=== PATIENT | female | born 1955 | race Caucasian/White ===

== ENCOUNTER 2020-04-08 12:40 | Outpatient (REF) | payer OTHER, SELFPAY ==
--- NOTE | 2020-04-08 10:00 | PAPFT_PTH ---
PATIENT: Esthela Padron LOC: [facility] #:[id number] AGE/SX: 65/F ROOM: RE04/08/[address]: Sawyer Walton : 1955 BED: DIS: 04/08/2020 SPEC #: [id number] RECD: 04/11/20 12:54 STATUS: CARMEN REQ #: [id number] FARIDA: 04/08/20 10:[address]: Sawyer Walton DEPT: [facility] Cytology RECD BY: Zaira Sanchez Tissues: 1 - CX/ENDOCX FOR PAP SMEARS Procedures: PAP THIN PREP/[facility] Screening HPV DNA PROBE Comments: [id number]
[2020-04-08 16:53] LABS: HCT 44.9 % (36.0-46.0); HGB 15.5 g/dL (12.0-15.5); Mean Corp. HGB Concentration 34.5 g/dL (32.0-36.0); Mean Corpuscular Hemoglobin 31.6 pg (27.0-33.0); Mean Corpuscular Volume 91.4 fL (80-95); Mean Platelet Volume 10.7 fL (8.0-11.0); Platelet Count 357 x1000/uL (130-400); RBC 4.91 m/cumm (4.00-5.20); RBC Distribution Width 12.4 % (11.7-14.6); White Blood Cell Count 6.67 k/cumm (4.4-10.8)
[2020-04-08 17:04] LABS: ALT 30 U/L (14-59); AST 19 U/L (15-37); Albumin 4.2 g/dL (3.4-5.0); Alkaline Phosphatase 97 U/L (46-116); Anion Gap 9.2 mmol/L (3-11); BUN 18 mg/dL (7-18); Bilirubin, Total 1.3 mg/dL (0.2-1.0); CO2 28.8 mmol/L (21.0-32.0); CREATININE 0.69 mg/dL (0.55-1.02); Calcium 9.3 mg/dL (8.5-10.1); Calculated LDL 168 mg/dL (<100); Chloride 102 mmol/L (98-107); Cholesterol 248 mg/dL (<200); Glucose 138 mg/dL (74-106); HDL Cholesterol 62 mg/dL (40-60); Sodium 140 mmol/L (136-145); Triglyceride 90 mg/dL (<150)
[2020-04-08 17:29] LABS: PROTEIN 17.9 mg/dL
[2020-04-08 17:31] LABS: COMMENT (LAB VIEW ONLY) 138.84 mg/dL; Microalb ug/mg Crea 16.6 ug/mg Cr
[2020-04-08 17:32] LABS: COMMENT (LAB VIEW ONLY) 141.73 mg/dL; Prot/Crea Ur Ratio 0.12
== END 2020-04-08 13:00 ==
LOC: NCHCN 12:40
PROVIDERS: PCP Nurse Practitioner Family; Visit Provider Nurse Practitioner Family
DX: I10 Essential (primary) hypertension (principal); E78.00 Pure hypercholesterolemia, unspecified; Z12.4 Encounter for screening for malignant neoplasm of cervix; Z11.51 Encounter for screening for human papillomavirus (HPV); Z00.00 Encounter for general adult medical examination without abnormal findings
CPT/HCPCS: 80053; 80061; 85027; 88142; 82043; 82565; 82570; 84156; 87624

== ENCOUNTER 2021-09-09 09:56 | Outpatient (REF) | payer OTHER, SELFPAY ==
[2021-09-11 09:49] LABS: COVID-19 RT-PCR UVMMC Result Negative (Negative)
== END 2021-09-09 09:57 | disposition home or self-care (01) ==
LOC: NCHCN 09:56
PROVIDERS: PCP Nurse Practitioner Family; Visit Provider Family Medicine
DX: Z20.822 Contact with and (suspected) exposure to COVID-19 (principal); J06.9 Acute upper respiratory infection, unspecified
CPT/HCPCS: U0003

== ENCOUNTER 2021-09-12 14:59 | Outpatient (REF) | payer OTHER, SELFPAY ==
[2021-09-14 11:58] LABS: COVID-19 RT-PCR UVMMC Result Negative (Negative)
== END 2021-09-12 15:00 | disposition home or self-care (01) ==
LOC: LBN 14:59
PROVIDERS: PCP Nurse Practitioner Family; Visit Provider Nurse Practitioner Family
DX: Z20.822 Contact with and (suspected) exposure to COVID-19 (principal); J06.9 Acute upper respiratory infection, unspecified
CPT/HCPCS: U0003

== ENCOUNTER 2022-06-21 16:24 | Outpatient (REF) | payer OTHER, SELFPAY ==
[2022-06-21 19:33] LABS: HCT 42.4 % (36.0-46.0); HGB 14.7 g/dL (11.2-15.7); MCH 30.9 pg (27.0-33.0); MCHC 34.7 % (32.0-36.0); MCV 89 fL (80-95); MPV 10.8 fL (8.0-11.0); Platelet Count 379 10^3/uL (130-400); RBC 4.75 10^6/uL (3.93-5.22); RDW 12.3 % (11.7-14.6); RDW-SD 40.1 fL; WBC 8.35 10^3/uL (4.4-10.8)
[2022-06-21 19:41] LABS: ALT 31 U/L (14-59); AST 25 U/L (15-37); Albumin 4.1 g/dL (3.4-5.0); Alkaline Phosphatase 92 U/L (46-116); BUN 11 mg/dL (7-18); Bilirubin, Total 0.9 mg/dL (0.2-1.0); CREATININE 0.5 mg/dL (0.55-1.02); Calcium 9.6 mg/dL (8.5-10.1); Calculated LDL 168 mg/dL (<100); Chloride 99 mmol/L (98-107); Cholesterol 254 mg/dL (<200); Glucose 137 mg/dL (74-106); HDL Cholesterol 58 mg/dL (40-60); Potassium 3.3 mmol/L (3.5-5.1); Sodium 140 mmol/L (136-145); Total Protein 8.3 g/dL (6.4-8.2); Triglyceride 140 mg/dL (<150)
[2022-06-22 18:35] LABS: Albumin, Ur < 0.6 mg/dL (See Note); Creatinine, Ur 9.8 mg/dL (See Note)
[2022-06-23 09:22] LABS: HIV-1/2 Ag & Ab Screen Negative (Negative)
[2022-06-25 11:40] LABS: Hepatitis C Ab w Rflx HCV PCR Negative (Negative)
== END 2022-06-21 16:25 | disposition home or self-care (01) ==
LOC: NCHCN 16:24
PROVIDERS: PCP Nurse Practitioner Family; Visit Provider Nurse Practitioner Family
DX: E78.00 Pure hypercholesterolemia, unspecified (principal); Z51.81 Encounter for therapeutic drug level monitoring; I10 Essential (primary) hypertension; Z11.4 Encounter for screening for human immunodeficiency virus [HIV]; Z11.59 Encounter for screening for other viral diseases
CPT/HCPCS: 80053; 80061; 85027; 86803; 87389; 82043; 82570

== ENCOUNTER → 2022-08-31 00:44 | Outpatient (CLI) | payer OTHER, SELFPAY ==
--- NOTE | 2022-08-31 | DI.DEXA_ITS ---
Exam(s) XR DEXA BONE DENSITY W/WO MAGY EXAM: XR DEXA BONE DENSITY W/WO MAGY CLINICAL HISTORY: SCREENING FOR OSTEOPOROSIS, Z13.820 TECHNIQUE: Routine DEXA evaluation of the lumbar spine, hip, or forearm. COMPARISON: Prior DEXA scan of 2013 FINDINGS: Performed on a Mobeon unit. Lateral image: No compression fracture evident. Lumbar Spine total T-score: 0.6. Prior 1999 reading was 0.4. Hip total T-score:-1.9. Prior 2013 reading was -1.7. Independent reading at the level of the femoral neck yields at T-score of -2.5. Forearm total T-score: -1.9. Prior 2013 reading was -1.3 IMPRESSION: Bone mineral density measures in the osteopenia bordering on osteoporosis range. Fracture risk is mod erate-high. Note: Any spine fracture indicates 5x risk for subsequent spine fracture and 2x risk for subsequent h ip fracture. World Health Organization criteria for BMD interpretation classify patients: Normal...... T- Score at or above -1.0 Osteopenic... T- Score between -1.0 and -2.5 Osteoporosis... T-Score at or below -2.5
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
--- OUTSIDE RECORDS SUMMARY | 2022-08-31 00:49 | XMS_ITS | Encounter Summary ---
:1955 Author Organization [facility] [place] [address] Care Team Providers Name Role Phone Delmis Dueñas MD Primary Care Provider Reason for Referral Physical Therapy (Routine) - Closed Specialty Diagnoses / Procedures Referred By Contact Refer red To Contact Physical Therapy Diagnoses S/P hip replacement Rogelio Maldonado PA [facility] Ernie R [place] [address] Referral ID Status Reason Start Date Expiration Date Visits V isits Requested Authorized [id number] Closed Evaluate and 08/23/2015 02/19/2016 12 12 Treat Reason for Visit Reason Comments [facility] FREDO Ant DOS 08/09/14 Encounter Details Date Type Department Care Team Description 08/23/2015 Office Visit Orthopaedics at [facility] Rogelio Maldonado S/P hip replacement (Primary Dx); [facility] TRE Willis S/P right anterior total hip arthroplast y 08/09/14 ([address] [place] [address] ORTHOPAEDIC SURGERY [phone] [place], [place] [address] (Wo rk) Social History Tobacco Use Types Packs/Day Years [...] Assigned at Date Recorded Not on file documented as of this encounter Last Filed Vital Signs Vital Sign Reading Time Taken Comments Blood Pressure 152/83 08/23/2015 11:20 AM EDT Pulse 68 08/23/2015 11:20 AM EDT Temperature - - Respiratory Rate - - Oxygen Saturation - - Inhaled Oxygen Concentration - - Weight 74.2 kg (163 lb 9.6 08/23/2015 11:20 AM fully cl othed oz) EDT Height 152.4 cm (5') 08/23/2015 11:20 AM verbal EDT Body Mass Index 31.95 08/23/2015 11:20 AM EDT documented in this encounter Progress Notes Rogelio Maldonado PA - 08/24/2015 10:00 AM EDT Case Date: 08/09/2014 Procedure Performed: right Total Hip Arthroplasty right hip intraoperative radiologic examination (CPT code 17601) Surgeon: Neri Mo MD Implants Used: Femoral Stem: DePuy Corail, Size 10 KA Femoral Head: Biolox Delta ceramic, Size 32+5 Acetabulum: DePuy Roland Sector II Gription, Size 48 Adjuvant screw fixation x 1 x 6.5mm (45mm) Liner: Altrx polyethylene, Size 48x32 +4 neutral HPI: 60 y.o. year-old female retruns 1 year from her hip replacement. She continues to do well. There is some pain to the groin with active hip flexion. This has been persistent since the operation. She only feels it with active flexion beyond 90 degrees. ROM and stability are not limiting. There has been little change in the sensation; improvement or worsening. She is pleased with the improved comfort and function since the operation. Her health has been stable. Physical Exam: Ambulatory without assist or antalgia. Leg lengths are equal. Calves soft and nontender. There is some groin pain with active hip flexion; none with passive flexion. IR and ER well tolerated. X-RAYS: Noncemented implants; no sign of loosening or subsidence. No fracture or subsidence. No evidence of complication. 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 I think her dysplasia and shallow acetabulum has resulted in a prominent component which is impinging. We reviewed options. FOr now we'll try a course of PT. Injections and revision could be pursued but we'll wait for now. F/u 1 yr Signed: TRE PURDY 08/24/2015 documented in this encounter Plan of Treatment Scheduled Referrals Name Type Priority Associated Diagnoses Order S chedule Referral to Outpatient Referral Routine S/P hip replacement O rdered: Physical Therapy 08/23/2015 documented as of this encounter Visit Diagnoses Diagnosis S/P hip replacement - Primary Hip joint replacement by other means S/P right anterior total hip arthroplast y 08/09/14 ([place]) Hip joint replacement by other means documented in this encounter Care Teams Sofa Back Upholsterer Relationship Specialty Start Date End Date Delmis Dueñas MD PCP - General 09/19/10 08/24/18 [address] [place] [address] documented as of this encounter
--- OUTSIDE RECORDS SUMMARY | 2022-08-31 00:49 | XMS_ITS | Encounter Summary ---
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 in this encounter Results SCAN DOC: IMPLANTABLE DEVICES (08/11/2014 1:15 PM EDT) Narrative 08/11/2014 1:15 PM EDT Procedure Note Provider, Scanning - 08/11/2014 1:15 PM EDT Scanning Provider MEDIA MGR SCAN EXT ORDR/RSLT (ABNORMAL) Differential, Automated (08/10/2014 4:27 AM EDT) [facility] gist Method Time Signature Neutrophils % 82.5 % CERNER MILLENNIUM Neutr Abs (ANC) 10.23 (H) 1.50 - CERNER 6.30 MILLENNIUM x10(3)/mc L Lymphocytes % 7.7 % CERNER MILLENNIUM Lymphocytes Abs 1.0 1.0 - 3.6 CERNER x10(3)/mc MILLENNIUM L Monocytes % 9.4 % CERNER MILLENNIUM Monocyte Abs 1.2 (H) 0.2 - 1.0 CERNER x10(3)/mc MILLENNIUM L Eosinophils % 0.1 % CERNER MILLENNIUM Eosinophils Abs 0.0 0.0 - 0.5 CERNER x10(3)/mc MILLENNIUM L Basophils % 0.1 % CERNER MILLENNIUM Basophils Abs 0.0 0.0 - 0.2 CERNER x10(3)/mc MILLENNIUM L Immature Gran % 0.20 % CERNER MILLENNIUM Comment: Immature granulocytes(IG's)percentage an d absolute count will include metamyelocytes, myelocytes, and promyelo cytes. Blood smears from CBCs yielding IG's will be scanned manually for concor dance. If this scan disagrees with the automated IG or if promyelocytes are not ed, a manual differential will be performed. Evelia Gran Abs 0.03 0.00 - 0.05 x10(3)/mcL CER NER MILLENNIUM Specimen Anatomical Collection Method Collection Time Receive d Time (Source) Location / / Volume Laterality Blood specimen 08/10/2014 4:27 AM 014 4:50 (specimen) EDT AM EDT Resulting Agency Comment Spec In Lab Neri Le MD HEMATOLOGY ORDERABLES Performing Organization Address City/[facility]/ZIP Code Phon e Number [address] CERNER MILLENNIUM (ABNORMAL) Hemogram (08/10/2014 4:27 AM EDT) P athologist Signature WBC 12.4 (H) 4.0 - 10.0 CERNER x10(3)/mcL MILLENNIUM RBC 3.19 (L) 3.93 - CERNER 5.22 MILLENNIUM x10(6)/mcL Hemoglobin 9.8 (L) 11.2 - CERNER 15.7 gm/dL MILLENNIUM Hematocrit 29.0 (L) 34.0 - CERNER 45.0 % MILLENNIUM MCV 90.9 79.0 - CERNER 94.0 fL MILLENNIUM MCH 30.7 26.6 - CERNER 32.2 pg MILLENNIUM MCHC 33.8 32.0 - CERNER 36.5 gm/dL MILLENNIUM Platelets 218 145 - 370 CERNER x10(3)/mcL MILLENNIUM RDWSD 40.2 35.0 - CERNER 46.0 fL MILLENNIUM RDWCV 12.0 10.9 - CERNER 14.4 % MILLENNIUM MPV 9.9 9.0 - 12.0 CERNER fL MILLENNIUM Specimen Anatomical Collection Method Collection Time Receive d Time (Source) Location / / Volume Laterality Blood specimen 08/10/2014 4:27 AM 014 4:50 (specimen) EDT AM EDT Resulting Agency Comment Spec In Lab eNri Le MD HEMATOLOGY ORDERABLES Performing Organization Address City/[facility]/ZIP Code Phon e Number [address] CERNER MILLENNIUM (ABNORMAL) Basic Metabolic Panel (non-fasting) (08/10/2014 4:27 AM EDT) P athologist Signature Glucose Lvl 136 60 - 199 CERNER mg/dL MILLENNIUM Comment: Diabetes: >=200 mg/dL plus symp toms BUN 10 8 - 18 mg/dL CERNER MILLENNIUM Creatinine 0.49 (L) 0.70 - 1.20 mg/dL CERNER MILL ENNIUM Comment: Please note that the pediatric reference intervals supplied above were not validated at [facility]. Results from pediatri c patients should be interpreted in conjunction to the patient's age, height and muscle mass. Sodium 139 135 - 145 mmol/L CERNER ROBERT NIUM Potassium 4.6 3.5 - 5.0 mmol/L CERNER ROBERT NIUM Comment: Please note: ??Patients with WBC >100,00 0 may have falsely elevated Potassium levels. ??For accurate Potassium quantif ication in these patients send serum separator tube (gold top) for subsequent determinations. ??Contact the Clinical Chemistry Laboratory if there are any qu estions. Chloride 104 98 - 107 mmol/L CERNER MILLENN IUM CO2 26 22 - 31 mmol/L CERNER MILLENNI UM Anion Gap 9 5 - 15 mmol/L CERNER MILLENNIU M Calcium 8.6 8.5 - 10.5 mg/dL CERNER ROBERT NIUM Estimated GFR >60 >=60 CERNER MILLENNIU M Comment: This estimated GFR (eGFR) value was calc ulated using the MDRD equation which has been validated on patients between t he ages of 18 and 70. The MDRD should not be used to assess kidney function in patients < 18 years of age or in patients with extremes of body mass, or in patients with acute kidney failure. This value should be multiplied by 1.2 f or patients. For further information please copy and past e the following links into your internet browser. http://Definition 6/DHnkdep http://Definition 6/DHMCnkf Specimen Anatomical Collection Method Collection Time Receive d Time (Source) Location / / Volume Laterality Blood specimen 08/10/2014 4:27 AM 014 4:50 (specimen) EDT AM EDT Resulting Agency Comment Spec In Lab Neri Le MD CHEMISTRY ORDERABLES Performing Organization Address City/State/[place] [address] CERNER MILLENNIUM XR pelvis 1 or 2 views (08/09/2014 3:28 PM EDT) Anatomical Region Laterality Modality Pelvis N/A Radiographic Imaging Specimen (Source) Anatomical Collection Method Collection Time Re ceived Time Location / / Volume Laterality 08/09/2014 3:28 PM EDT Narrative 08/09/2014 3:58 PM EDT Examination PELVIS 1 OR 2 VIEWS/XPORT Clinical History hip fracture Comparison 06/23/2014. Technique Portable AP view of the pelvis including both hips on 08/09/2014 at 1515 hours. Findings There has been right hip arthroplasty. ? ?Components appear well-seated, with no immediate post arthroplasty complication such as periprosthetic fracture. ?? Clustered small hazy nodular opacities p rojecting over and lateral to the proximal right femur, question antibioti c beads versus object external to the patient. Unchanged post arthroplasty laurie earance on the left. ?? Impression No immediate post arthroplasty complicat ions identified. Procedure Note Jazlyn Woodard MD - 08/09/2014Formatt ing of this note might be different from the original. Examination PELVIS 1 OR 2 VIEWS/XPORT Clinical History hip fracture Comparison 06/23/2014. Technique Portable AP view of the pelvis including both hips on 08/09/2014 at 1515 hours. Findings There has been right hip arthroplasty. C omponents appear well-seated, with no immediate post arthroplasty complication such as periprosthetic fracture. Clustered small hazy nodular opacities p rojecting over and lateral to the proximal right femur, question antibioti c beads versus object external to the patient. Unchanged post arthroplasty laurie earance on the left. Impression No immediate post arthroplasty complicat ions identified. Neri Le MD IMG DX ORDERABLES Surgical Pathology Report (08/09/2014 12:53 PM EDT) [facility] Method Time Signature Surgical [facility] Pathology ? [facility] Report ? Provider: ?? NERI LE ?? Pt. Name: ?? ARSENW ESTHELA MCCORMACK ? Acc #: ?[id number] ?Pt. MRN: ?[id number] ? Col Date: ?? 08/09/20 14 ?/Sex: ?1955,(59 years),Female ? Rec Date: ?? 08/09/2014 ?LOC: ?[id number] ? SURGICAL PATHOLOGY ? ---Pathologic Diagnosis--- ? Right femoral head, osteoarthitis. ?Gross surgical pathology examination. ? CR-0 ? 08/09/14 ? SNS ? 08/10/14 Verified by: ? Bessie Mills DO ? Pathologist ? (Electronic Si gnature) ? The attending pathologist whose signature appears o n this report has ? reviewed all diagnostic slides and has edited the bette ss and/or ? microscopic portion of the report in rendering the fi nal pathologic ? diagnosis. ? ---Gross Description--- ? A - Labeled/Fixative: Right femoral head, fresh. ? Quantity/Size: Single, 4.5 x 4.5 x 4.0. ? Tissue Description: I ntact femoral head with up to 1 cm of attached neck. ? Margin: Smooth, red bone. ? Articular surface: Red, granular and pitted. ? Eburnation: Present. ? Osteophytes: Present. ? Cut surface: Yellow, trabecular bone. ? Subchondral Sclerosis: Present. ? Subchondral Cysts: Absent. ? Sections/Processing: No sections are submitted. ??sns ? ---Clinical Information--- ? Specimen Submitted: ? A - Right femoral head ? Clinical History: ? Post-traumatic OA right hip ? Clinical Diagnosis: ? Same Specimen (Source) Anatomical Collection Method Collection Time Re ceived Time Location / / Volume Laterality 08/09/2014 12:53 PM EDT Neri Le MD PATHOLOGY/CYTOLOGY ORDERABLE S Performing Organization Address City/State/[place] [address] [facility] Specimen to Pathology (surgical or derm) (08/09/2014 12:53 PM EDT) Specimen Anatomical Collection Method Collection Time Receive d Time (Source) Location / / Volume Laterality AP Specimen 08/09/2014 12:53 08/09/2014 PM EDT 12:52 PM EDT Narrative CERNER MILLENNIUM - 08/09/2014 12:53 PM EDT Specimen requisition ordered. 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, pelv ic region and thigh documented in this encounter Administered Medications Inactive Administered Medications - up to 3 most recent administrations Medication Order MAR Action Action Date Dose Rate Site acetaminophen (TYLENOL) tablet Given 08/10/2014 1:29 PM EDT 1,00 0 mg 1,000 mg 1,000 mg, Oral, EVERY 8 HOURS SCHEDULED, First dose on Sat08/09/14 at 1530, Until Discontinued, Maximum dose of acetaminophen is 4000 mg from all sources in 24 hours., Routine Given 08/10/2014 6:15 AM EDT 1,000 mg Given 08/09/2014 9:02 PM EDT 1,000 mg aspirin EC tablet 325 mg Given 08/10/2014 8:15 AM EDT 325 mg 325 mg, Oral, 2 TIMES DAILY, First dose on Sat08/10/14 at 0900, Until Discontinued, Routine ceFAZolin (ANCEF) 1g in dextrose 5% Given 08/10/2014 7:06 AM EDT 1,000 mg 100 mL/hr 50mL 1,000 mg (1 g), Intravenous, EVERY 8 HOURS, 3 doses, First dose on Sat08/09/14 at 1530, Last dose on Sat08/10/14 at 0730, Administer over 30 Minutes, Adjust to 4 hours from intraoperative dose. * Beta-lactam based antibiotics (eg. Ampicillin, Cefazolin, Aztreonam) should be administered within 4 hours of the preceding intraoperative dose. * Vancomycin, Flouroquinolones, Clindamycin, Gentamicin, and Metronidazole should be administered within 8 hours of the preceding intraoperative dose., Recovery (Recovery-Hospital Unit), Indication for (Active or Suspected): Prophylaxis Given 08/10/2014 12:23 AM EDT 1,000 mg 100 mL/hr Given 08/09/2014 3:31 PM EDT 1,000 mg 100 mL/hr celecoxib (celeBREX) capsule 400 mg Given 08/09/2014 11:45 AM EDT 400 mg 400 mg, Oral, ONCE, 1 dose, On Sat08/09/14 at 1145, Administer on arrival to Same Day Program, Day of Surgery (Day of Procedure), Routine gabapentin (NEURONTIN) capsule 600 mg Given 08/09/2014 11:45 AM EDT 600 mg 600 mg, Oral, ONCE, 1 dose, On Sat08/09/14 at 1145, Administer on arrival in Same Day Program, Day of Surgery (Day of Procedure), Routine hydrochlorothiazide (HYDRODIURIL) tablet 25 mg Given 08/10/2014 6:15 AM EDT 25 mg 25 mg, Oral, EVERY MORNING, First dose on Sat08/10/14 at 0700, Until Discontinued, Routine HYDROmorphone (DILAUDID) 0.2 mg/mL 10mL Given 08/09/2014 3:44 PM EDT 0.2 mg Syringe (IR ONLY) 0.2-0.4 mg, Intravenous, EVERY 5 MIN PRN, Pain, Starting on Sat08/09/14 at 1503, Until Sat08/09/14 at 1607, For moderate pain give: 0.2 mg every 5 minute prn For severe pain give: 0.4 mg every 5 minutes prn Maximum dose: 4 mg per hour Hold for respiratory rate less than 10 per minute., PACU Recovery lactated ringers infusion 1,000 New Bag 08/10/2014 12:26 AM ED T 1,000 mLs 100 mL/hr mL 1,000 mL, at 100 mL/hr, Intravenous, CONTINUOUS, Starting on Sat08/09/14 at 1530, Until Sat08/10/14 at 1720 New Bag 08/09/2014 3:14 PM EDT 1,000 mLs 100 mL/hr multivitamin Pbut-Yg-VX-Min (THERAPEUTIC-M) Given 07/28 8:16 AM EDT 1 tablet 27-0.4 mg tablet 1 tablet 1 tablet, Oral, DAILY, First dose on Sat08/09/14 at 2000, Until Discontinued Given 08/09/2014 9:03 PM EDT 1 tablet oxyCODONE (OxyCONTIN) CR tablet 10 mg Given 08/09/2014 11:45 AM EDT 10 mg 10 mg, Oral, ONCE, On Sat08/09/14 at 1145, 1 dose, Administer on arrival in Same Day Program, Day of Surgery (Day of Procedure) oxyCODONE (ROXICODONE) immediate release tablet Given 08/10/2014 6:14 AM EDT 5 mg 5 mg 5 mg, Oral, EVERY 4 HOURS PRN, Starting on Sat08/09/14 at 1503, Until Sat08/10/14 at 1720, Pain, mild pain, For Mild pain. Do not exceed 15 mg in 4 hours. If pain not relieved, call provider, Routine polyethylene glycol (MIRALAX) packet 17 g Given 08/10/2014 8:14 AM EDT 17 g 17 g, Oral, 2 TIMES DAILY, First dose on Sat08/09/14 at 2100, Until Discontinued, Administer if needed per patient's routine or if no bowel movement within 48 hours, Routine Given 08/09/2014 9:01 PM EDT 17 g potassium chloride (K-DUR/KLOR-CON) extended Given 8:15 AM EDT 20 mEq release tablet 20 mEq 20 mEq, Oral, 2 TIMES DAILY, First dose on Sat08/09/14 at 2100, Until Discontinued, 20 mEq tablet may be dissolved in water for administration, Routine Given 08/09/2014 9:00 PM EDT 20 mEq senna-docusate (PERICOLACE) 8.6-50 mg per Given 2013 8:15 AM EDT 2 tablets tablet 1-4 tablet 1-4 tablet, Oral, 2 TIMES DAILY, First dose on Sat08/09/14 at 2100, Until Discontinued, Start with 1 tablet or liquid equivalent orally twice daily and titrate up to achieve: 1. One bowel movement at least every 48 hours, AND 2. Without straining, Routine Given 08/09/2014 9:01 PM EDT 2 tablets sodium chloride 0.9 % flush 5 mL Given 08/10/2014 8:17 AM EDT 5 mLs 5 mL, Intravenous, EVERY 12 HOURS, First dose on Sat08/09/14 at 2100, Until Discontinued, Routine Given 08/09/2014 9:03 PM EDT 5 mLs documented in this encounter Active and Recently Administered Medications Times are shown in EDT. Scheduled Medication Order 08/08/2014 08/09/2014 08/10/2014 acetaminophen (TYLENOL) tablet 1,000 mg 1530 (Not Given - Provider: Nadja Maria RN - Reason: See comment - Comment: pt sleeping)2101 (Given - Provider: Magdiel Yip RN) 0615 (Given - Provider: Magdiel herzog, SIOBHAN)1329 (Given - Provider: Tennille Lan, SIOBHAN) 1,000 mg, Oral, EVERY 8 HOURS SCHEDULED, First dose on Sat08/09/14 at 1530, Until Discontinued, Maximum dose of acetaminophen is 4000 mg from all sources in 24 hours., Routine aspirin EC tablet 325 mg 0815 (G iven - Provider: Tennille Lan, SIOBHAN) 325 mg, Oral, 2 TIMES DAILY, First dose on Sat08/10/14 at 0900, Until Discontinued, Routine ceFAZolin (ANCEF) 1g in dextrose 5% 50mL (COMPLETED) 1531 (Given - Provider: Nadja Maria RN) 0023 (Given - Provider: Magdiel herzog, SIOBHAN)0706 (Given - Provider: Magdiel Yip, SIOBHAN) 1 g = 1,000 mg, Intravenous, EVERY 8 LEAH RS, 3 doses, First dose on Sat08/09/14 at 1530, Last dose on Sat08/10/14 at 0730, for 30 Minutes, Adjust to 4 hours from intraoperative dose. * Beta-lactam base d antibiotics (eg. Ampicillin, Cefazolin , Aztreonam) should be administered within 4 hours of the preceding intraoperative dose. * Vancomycin, Flouroquinolones, Clindamycin, Gentamicin, and Metronidazol e should be administered within 8 hours of the preceding intraoperative dose., Recovery (Recovery-Hospital Unit), Indication for (Active or Suspected): Prophylaxis celecoxib (celeBREX) capsule 400 mg (COMPLETED) 1144 (Given - Provider: Alvina Doherty RN) 400 mg, Oral, ONCE, 1 dose, Sat08/09/14 at 1145, Administer on arrival to Same Day Program, Day of Surgery (Day of Procedure), Routine gabapentin (NEURONTIN) capsule 600 mg (COMPLETED) 1144 (Given - Provider: Alvina Doherty RN) 600 mg, Oral, ONCE, 1 dose, Sat08/09/14 at 1145, Administer on arrival in Same Day Program, Day of Surgery (Day of Procedure), Routine hydrochlorothiazide (HYDRODIURIL) tablet 25 mg (CANCELED) 614 (Given - Provider: Magdiel Yip RN) 25 mg, Oral, EVERY MORNING, First dose o n 08/10/14 at 0700, Until Discontinued, Routine multivitamin Smjd-Po-LF-Min (THERAPEUTIC -M) 27-0.4 mg tablet 1 tablet (CANCELED) 2102 (Given - Provider: Magdiel herzog RN) 08 (Given - Provider: Tennille Lan RN) 1 tablet, Oral, DAILY, First dose on Sat08/09/14 at 2000, Until Discontinued, Routine oxyCODONE (OxyCONTIN) CR tablet 10 mg (COMPLETED) 1144 (Given - Provider: Alvina Doherty RN) 10 mg, Oral, ONCE, 1 dose, Sat08/09/14 at 1145, Administer on arrival in Same Day Program, Day of Surgery (Day of Procedure), Routine polyethylene glycol (MIRALAX) packet 17 g (CANCELED) 2100 (Given - Provider: Magdiel Yip RN) 0814 (Given - Provider: Tennille Lan RN) 17 g, Oral, 2 TIMES DAILY, First dose on Sat08/09/14 at 2100, Until Discontinued, Administer if needed per patient's routine or if no bowel movement within 48 hours, Routine potassium chloride (K-DUR/KLOR-CON) extended release tablet 20 mEq (CANCELED) 2099 (Given - Provider: Magdiel Yip RN - Comment: Pill popped through barcode.) 0815 (Given - Provider: Tennille Lan, SIOBHAN) 20 mEq, Oral, 2 TIMES DAILY, First dose on Sat08/09/14 at 2100, Until Discontinued, 20 mEq tablet may be dissolved in water for administration, Routine senna-docusate (PERICOLACE) 8.6-50 mg per tablet 1-4 tablet 2100 (Given - Provider: Magdiel Yip, SIOBHAN) 0815 (Given - Provider: Tennille Lan, SIOBHAN) 1-4 tablet, Oral, 2 TIMES DAILY, First d ose on Sat08/09/14 at 2100, Until Discontinued, Start with 1 tablet or liquid equivalent orally twice daily and titrate up to achieve: 1. One bowel movement at l east every 48 hours, AND 2. Without straining, Routine sodium chloride 0.9 % flush 5 mL (CANCELED) 2102 (Given - Provider: Magdiel Yip RN) 0817 (Given - Provider: Tennille Lan, SIOBHAN) 5 mL, Intravenous, EVERY 12 HOURS, First dose on Sat08/09/14 at 2100, Until Discontinued, Routine tranexamic acid (CYKLOKAPRON) 1,060 mg i n sodium chloride 0.9% 110.6 mL (COMPLETED) 1232 (New Bag - Provider: Jaleesa Kohler MD - Comment: over 30 min) 15 mg/kg/dose ? 70.5 kg = 1,060 mg, Intravenous, ONCE, 1 dose, Sat08/09/14 at 1145, for 30 Minutes, Dilute tranexamic acid dose in 100 mL sodium chloride 0.9% prior to administration. For patients les s than or equal to 200 kg infuse over 30 minutes. For patients greater than 200 kg infuse over 60 minutes., Day of Surgery (Day of Procedure) Continuous Medication Order 08/08/2014 08/09/2014 08/10/2014 lactated ringers infusion 1,000 mL (CANCELED) 1514 (New Bag - Provider: Nadja Maria RN) 0026 (New Bag - Provider: Magdiel Melendez, RN)0618 (Stopped - Provider: Magdiel Yip, RN) 1,000 mL, at 100 mL/hr, Intravenous, CON TINUOUS, Starting 08/09/14 at 1530, Until Sat08/10/14 at 1720 PRN Medication Order 08/08/2014 08/09/2014 08/10/2014 bacitracin injection (CANCELED) 1305 (Gi hailey - Provider: Neri Le MD - Comment: 50,000units bacitractin mixed with NaCl 3,000ml) ONCE PRN, Starting Sat08/09/14 at 1305, Until Sat08/09/14 at 1504, Intra- Operative (Intra-Procedure), Routine bisacodyl (DULCOLAX) suppository 10 mg 10 mg, Rectal, DAILY PRN, Starting Sat at 1721, Until Sat08/10/14 at 1720, Constipation, Administer if needed per patient's routine or if no bowel movement within 48 hours, Routine BUpivacaine-EPINEPHrine 0.25 %-1:200,000 injection (CANCELED ) 1306 (Given - Provider: Neri Le MD - Comment: 0.25% Bupivicaine with Epi 1:200,000 mixed with Ketorolac 30mg and Clonidine 500mcg.) ONCE PRN, Starting Sat08/09/14 at 1306, Until Sat08/09/14 at 1504, Intra- Operative (Intra-Procedure), Routine cloNIDine injection (CANCELED) 1307 (Giv en - Provider: Neri Le MD - Comment: 0.25% Bupivicaine with Epi 1:200,000 mixed with Ketorolac 30mg and Clonidine 500mcg.) ONCE PRN, Starting Sat08/09/14 at 1307, Until Sat08/09/14 at 1504, Intra- Operative (Intra-Procedure), Routine HYDROmorphone (DILAUDID) 0.2 mg/mL 10mL Syringe (IR ONLY) (C ANCELED) 1544 (Given - Provider: Nadja Maria, SIOBHAN) 0.2-0.4 mg, Intravenous, EVERY 5 MIN PRN , Starting Sat08/09/14 at 1503, Until Sat08/09/14 at 1607, Pain, For moderate pain give: 0.2 mg every 5 minute prn For severe pain give: 0.4 mg every 5 minutes prn Maximum dose: 4 mg per hour Hold for respiratory rate less than 10 per minute., PACU Recovery, Routine ketorolac (TORADOL) injection (CANCELED) 1307 (Given - Provider: Neri Le MD - Comment: 0.25% Bupivicaine with Epi 1:200,000 mixed with Ketorolac 30mg and Clonidine 500mcg.) ONCE PRN, Starting Sat08/09/14 at 1307, Until Sat08/09/14 at 1504, Pain, Intra-Operative (Intra-Procedure), Routine oxyCODONE (ROXICODONE) immediate release tablet 5 mg 0614 (Given - Provider: Magdiel Yip RN) 5 mg, Oral, EVERY 4 HOURS PRN, Starting Sat08/09/14 at 1503, Until Sat08/10/14 at 1720, Pain, mild pain, For Mild pain. Do not exceed 15 mg in 4 hours. If pain not relieved, call provider, Routine documented in this encounter Care Teams Senior Java Software Engineer Relationship Specialty Start Date End Date Delmis Rudd MD PCP - General 09/19/10 08/24/18 [address] [place] [address] documented as of this encounter
--- OUTSIDE RECORDS SUMMARY | 2022-08-31 00:49 | XMS_ITS | Encounter Summary ---
:1955 Author Organization [facility] Address [place] [address] Care Team Providers Name Role Phone Delmis Dueñas MD Primary Care Provider Encounter Details Date Type Department Care Team Description 09/30/2015 Hospital Encounter Mammography [place] [facility] Spenser Screening breast [facility] MD Delmis examination Drive [address] [place] [address], [address] [place] [address] Social History Tobacco Use Types Packs/Day Years [...] on file documented as of this encounter Medications at Time of Discharge Medication Sig Dispensed Refills Start Date End Date dyrbrwm-gobhphnkjdmji-wfpvkdkq Take 1 tablet by 0 (EXCEDRIN MIGRAINE) 250-250-65 mouth every 6 mg Tablet hours as needed for Pain. diphenhydrAMINE (BENADRYL Take 25 mg by 0 ALLERGY) 25 mg Tablet mouth as needed for Itching. Chlorpheniramine-Acetaminophen Take 2 tablets by 0 (CORICIDIN HBP COLD & FLU) mouth as needed. 2-325 mg Tablet Cinnamon Bark 500 mg Capsule Take by mouth 0 daily. potassium chloride Take 20 mEq by 0 (K-DUR/KLOR-CON) 20 mEq Tab mouth 2 times Sust.Rel. Particle/Crystal daily. multivitamin (THERAGRAN) Take 1 tablet by 0 tablet mouth daily. hydrochlorothiazide 25mg, PO, QAM 0 07/13/2004 (HYDRODIURIL) 25 mg tablet polyethylene glycol (MIRALAX) 17 grams PO BID, 0 07/13/2004 17 gram/dose powder PO, BID,PRN documented as of this encounter Plan of Treatment Not on filedocumented as of this encounter Procedures Procedure Name Priority Date/Time Associated Diagnosis Comme nts MAMMO 2D DIGITAL Routine 09/30/2015 1:13 PM Screening breast R esults for this DIAG REESE WITH CAD EST examination procedure are in BILATERAL the results section. documented in this encounter Results Mammo Diag Reese Bilateral (09/30/2015 1:13 PM EST) Anatomical Region Laterality Modality Breast Bilateral Mammography Specimen (Source) Anatomical Location Collection Method / Collectio n Time Received Time / Laterality Volume Impressions 09/30/2015 1:56 PM EST IMPRESSION:No mammographic evidence of malignancy. Resume routine screening. BI-RADS Category 1: Negative Narrative 09/30/2015 1:56 PM EST EXAMINATION: BILATERAL BREAST(S) DIAGNOSTIC MAMMOGRAM INDICATION: 2 yr stability cat 3. ??Foll ow-up faint nodule left breast TECHNIQUE: CC and MLO views were obtained of each b reast. 2-D and 3- D tomosynthesis images were obtained. Computer aided detection was used. COMPARISON: This study was compared with prior image s. FINDINGS: The breasts are almost entirely fatty. T here are no suspicious masses, suspicious microcalcifications, or areas of architectural distortion. Specifically, there is no evidence of ma ss in the left breast 10:00 4 cm from the nipple. The right breast is normal. Delmis Dueñas MD IMG MAMMO ORDERABLES documented in this encounter Visit Diagnoses Diagnosis Screening breast examination (Not by Inocente ishan) Other screening breast examination documented in this encounter Care Teams Automotive Parts Manager Relationship Specialty Start Date End Date Delmis Dueñas MD PCP - General 09/19/10 08/24/18 [address] [place] [address] documented as of this encounter
--- OUTSIDE RECORDS SUMMARY | 2022-08-31 00:49 | XMS_ITS | Encounter Summary ---
:1955 Author Organization [facility] Address [address] [place] [address] Care Team Providers Name Role Phone Tammy Jewell BEAD WORKER SEWING Primary Care Provider Encounter Details Date Type Department Care Team Description 10/10/2018 Hospital Encounter Mammography at [facility] [place] Tammy Jewell Visit for screening [facility] K, BEAD WORKER SEWING mammogram Drive [address] [place] [address] [place], [place] [phone] [id number] Social History Tobacco Use Types Packs/Day Years [...] Sig Dispensed Refills Start Date End Date xxuiauu-tfkzaglefooal-ufwwmbwp Take 1 tablet by 0 (EXCEDRIN MIGRAINE) [...] Priority Date/Time Associated Diagnosis Comme nts MAMMO SCREENING CAD Routine 10/10/2018 8:43 AM Visit for desirae james Results for this AND REESE BILATERAL EST mammogram procedure are in the results section. documented in this encounter Results Mammo Screening Cad and Reese Bilateral (10/10/2018 8:43 AM EST) Anatomical Region Laterality Modality Breast Bilateral Mammography Specimen (Source) Anatomical Location Collection Method / Collectio n Time Received Time / Laterality Volume Narrative 10/10/2018 9:05 AM EST BILATERAL MAMMOGRAPHY REASON FOR EXAM: Screening TECHNIQUE: CC and MLO views were obtaine d of each breast using standard 2-D mammography as well as 3-D tomosynth esis. Computer aided detection was used. This is compared with prior images . FINDINGS: ??The breasts are almost entir reena fatty. There are no suspicious microcalcifications, masses, or areas of distortion. The pattern is stable. CONCLUSION: No mammographic evidence of malignancy. RECOMMENDATION: Medical organizations ag ree that annual screening mammography beginning at age 40 saves th e most lives. The risks of screening are negligible compared to dyi ng from breast cancer or suffering from more aggressive treatment required when detected at a later stage. No woman is at low risk for breast cancer. Some women, because of their family history, a genetic tendency, or c ertain other factors, should be screened with breast MRI along with mamm ograms. (The number of women who fall into this category is very small). The patient and health care provider should discuss the patient hist ory and decide if earlier screening and breast MRI are appropriate . Screening should continue as long as a woman is in good health and is expected to live 10 years or longer. Screening mammography may not de tect 10-15% of breast cancers. Women should report any breast changes t o a health care provider right away. A result letter has been sent to this pa dl by the [facility]. BIRADS CATEGORY 1: NEGATIVE Tammy Jewell APRN IMG MAMMO ORDERABLES documented in this encounter Visit Diagnoses Diagnosis Visit for screening mammogram Other screening mammogram documented in this encounter Care Teams Finance Lead Relationship Specialty Start Date End Date Tammy Jewell, NELLY PCP - General Family Medicine 08/25/18 [address] [place] [address] documented as of this encounter
--- OUTSIDE RECORDS SUMMARY | 2022-08-31 00:49 | XMS_ITS | Encounter Summary ---
:1955 Author Organization [facility] Address [address] [place] [address] Care Team Providers Name Role Phone Delmis Dueñas MD Primary Care Provider Reason for Visit Reason Comments Aftercare Of Tjr s/p right ant esvin dos Encounter Details Date Type Department Care Team Description 09/07/2014 Office Visit Orthopaedics at [facility] [place] Neri Mo S/P right anterior [facility] MD Nick total hip arthroplasty Health system 08/09/14 ([facility]) [place] [address] CENTER [phone] ORTHOPAEDIC SURGERY [place], [place] [address] Social History Tobacco Use Types Packs/Day Years [...] Sign Reading Time Taken Comments Blood Pressure 130/87 09/07/2014 1:39 PM EST Pulse 86 09/07/2014 1:39 PM EST Temperature 36.9 ??C (98.5 ??F) 09/07/2014 1:39 PM EST Respiratory Rate - - Oxygen Saturation - - Inhaled Oxygen Concentration - - Weight 71.5 kg (157 lb 11.2 oz) 09/07/2014 1:39 PM EST Height 149.9 cm (4' 11) 09/07/2014 1:39 PM EST Body Mass Index 31.85 09/07/2014 1:39 PM EST documented in this encounter Patient Instructions Patient InstructionsRogelio Maldonado PA - 09/07/2014 2:22 PM EST -activities as tolerated with exception of running (axial loading) -infection awareness -continue stretching and strengthening -antibiotic prior to dental work -wait 6 months form surgery for elective dental work documented in this encounter Progress Notes Rogelio Maldonado PA - 09/07/2014 2:27 PM EST Case Date: 08/09/2014 Procedure Performed: right Total Hip Arthroplasty right hip intraoperative radiologic examination (CPT code 25719) Surgeon: Neri Mo MD Implants Used: Femoral Stem: DePuy [place], Size 10 KA Femoral Head: Biolox Delta ceramic, Size 32+5 Acetabulum: DePuy [place] Sector II Gription, Size 48 Adjuvant screw fixation x 1 x 6.5mm (45mm) Liner: Altrx polyethylene, Size 48x32 +4 neutral HPI: 59 y.o. year-old female retruns 4 weeks from her hip replacement. She has been doing very well and her pain is markedly improved over preoperative status. No fevers, chills, nausea, vomiting, or symptoms of infection. Esthela has been ambulating with no assistive device and working with PT. Physical Exam: Well-appearing female in no acute distress. Alert and Oriented x 3 and answers all questions appropriately. The incision is well healed, with no signs of infection. Calves soft and nontender without edema. X-RAYS: noncemented implants; no sign of loosening or subsidence. No fracture or subsidence. No evidence of complication. ASSESSMENT/PLAN: 4 weeks post-op and doing well. Continue weightbearing as tolerated and working on range of motion, and we will see her back in 2 months for repeat examination. No x-rays will be needed at that time. Patient may return to normal activities as her pain and function allow. We discussed the appropriate precautions surrounding dental prophylaxis. I stressed that she should avoid elective dental procedures for the first 6 months after surgery and then call the office for a prescription prior to any further dental work for the lifetime of the joint replacement. We also discussed maintaining good foot care and giving prompt attention to any source of infection throughout the body including foot ulcers and urinary tract infections. Signed: TRE PURDY 09/07/2014 documented in this encounter Plan of Treatment Not on filedocumented as of this encounter Visit Diagnoses Diagnosis S/P right anterior total hip arthroplast y 08/09/14 ([place]) Hip joint replacement by other means documented in this encounter Care Teams Document Photographer Relationship Specialty Start Date End Date Delmis Dueñas MD PCP - General 09/19/10 08/24/18 [address] [place] [address] documented as of this encounter
--- OUTSIDE RECORDS SUMMARY | 2022-08-31 00:49 | XMS_ITS | Encounter Summary ---
:1955 Author Organization [facility] [place] [address] Care Team Providers Name Role Phone Delmis Dueñas MD Primary Care Provider Reason for Visit Reason Onset Date Comments Post Procedure Call 08/27/2014 Encounter Details Date Type Department Care Team Description 08/27/2014 Telephone Orthopaedics at [facility] [place] Neri Mo, Post Procedure Call [facility] [place] [address] [facility] [phone] DR ORTHOPAEDIC SURG [place], [place] [address] (Wo rk) Social History Tobacco [...] on file documented as of this encounter Miscellaneous Notes Telephone Encounter - Naomie Garcia RN - 08/27/2014 9:05 AM EDT S/P right anterior total hip arthroplasty 08/09/14 (Mimi) 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 Fax to [facility] [phone] Message sent to the [facility] ortho sec pool to write the letter. Telephone Encounter - Lupe Flowers - 08/27/2014 8:32 AM EDT When was your procedure? 08/09/14 Who was your surgeon? MIMI What procedure did you have done? RIGHT FREDO ANT What is the question you would like to ask the nurse? PATIENT IS WONDERING IF SHE COULD DO WORK FROMSHERIDAN. SHE STATES SHE WOULD JUST BE SITTING AROUND WITH A LAPTOP. SHE WOULD LIKE SOMEONE TO GIVE HER A CALL. IF IN FACT SHE CAN RETURN TO WORK PLEASE SEND LETTER REQUEST TO [facility] SO WE CAN SENDIT TO HER EMPLOYER Best number to reach you # [phone] The nurse continuously monitors all messages and will return your call before the end of the day. The nurse may need to consult the surgeon about your question which may delay the return call by 24hrs. documented in this encounter Plan of Treatment Not on filedocumented as of this encounter Visit Diagnoses Not on filedocumented in this encounter Care Teams Dry Starch Operator Relationship Specialty Start Date End Date Delmis Dueñas MD PCP - General 09/19/10 08/24/18 [address] [place] [address] documented as of this encounter
--- OUTSIDE RECORDS SUMMARY | 2022-08-31 00:49 | XMS_ITS | Encounter Summary ---
:1955 [address] [facility] [place] [address] Care Team Providers Name Role Phone Delmis Dueñas MD Primary Care Provider Reason for Referral Physical Therapy (Routine) - Complete - Patient Will Schedule External Appt Specialty Diagnoses / Procedures Referred By Contact Refer red To Contact Physical Therapy Diagnoses Aftercare following joint replacement Neri Mo MD [facility] Ernie Romero [place] [address] Referral ID Status Reason Start Expiration Visits Visits Date Date Requested Authorized [id number] Complete - Evaluate and 03/12/2015 1 1 Patient Will Treat 4 Schedule External Appt Reason for Visit Reason Onset Date Comments Physical Therapy 09/13/2014 Encounter Details Date Type Department Care Team Description 09/13/2014 Telephone [place]edics [place] [facility] [place] Mo MD Physical Therapy [facility] Ernie matthews [facility] [place] [address] ORTHOPAEDIC SURGERY [phone] [place], [place] [address] (Wo rk) Social History Tobacco [...] Telephone Encounter - Naomie Garcia RN - 09/13/2014 2:01 PM EST Date: 08/09/2014 Procedure Performed: right Total Hip Arthroplasty PT referral generated. Esthela will call back after she decides where to have me fax the PT orders. Telephone Encounter - Sabrina Hartmann - 09/13/2014 1:38 PM EST Patient calling wondering if she can get another referral to physical therapy? She spoke with Lanre Maldonado about this at her last visit on 09/07. And never walked away with with a referral. Please call her and talk to her about if this is a good idea or not. [phone] documented in this encounter Plan of Treatment Scheduled Referrals Name Type Priority Associated Diagnoses Order S chedule Referral to Outpatient Referral Routine Aftercare following O rdered: Physical Therapy joint replacement 2013 documented as of this encounter Visit Diagnoses Diagnosis Aftercare following joint replacement documented in this encounter Care Teams Manager Medical Device Relationship Specialty Start Date End Date Delmis Dueñas MD PCP - General 09/19/10 08/24/18 [address] [place] [address] documented as of this encounter
--- OUTSIDE RECORDS SUMMARY | 2022-08-31 00:49 | XMS_ITS | Encounter Summary ---
:1955 Author Organization [facility] [place] [address] Care Team Providers Name Role Phone Delmis Dueñas MD Primary Care Provider Encounter Details Date Type Department Care Team Description 09/17/2014 Orders Only Mammography at [facility] Tj Encinas, Abnormal mammogram, [facility] [place] [address] DIAGNOSTIC RADIOLOGY [place] [address] Social History Tobacco Use Types Packs/Day Years [...] on file documented as of this encounter Plan of Treatment Not on filedocumented as of this encounter Visit Diagnoses Diagnosis Abnormal mammogram, unspecified documented in this encounter Care Teams Watch Electrician Relationship Specialty Start Date End Date Delmis Dueñas MD PCP - General 09/19/10 08/24/18 [address] [place] [address] documented as of this encounter
--- OUTSIDE RECORDS SUMMARY | 2022-08-31 00:49 | XMS_ITS | Encounter Summary ---
:1955 Author Organization [facility] [place] [address] Care Team Providers Name Role Phone Tammy Jewell APRN Primary Care Provider Reason for Referral - Closed Specialty Diagnoses / Procedures Referred By Contact Refer red To Contact Diagnoses Encounter for screening mammogram for breast cancer Levon Calhoun PA [facility] Rad Mammography Procedures Mammo Screening Cad and Reese Bilateral [address] [address] Referral ID Status Reason Start Date Expiration Date Visits Requ ested Visits Authorized [id number] Closed 03/17/2021 03/17/2022 1 1 Reason for Visit - Closed Specialty Diagnoses / Procedures Referred By Contact Refer red To Contact Diagnoses Encounter for screening mammogram for breast cancer Levon Calhoun PA [facility] Rad Mammography Procedures Mammo Screening Cad and Reese Bilateral [address] [address] Referral ID Status Reason Start Date Expiration Date Visits Requ ested Visits Authorized [id number] Closed 03/17/2021 03/17/2022 1 1 Encounter Details Date Type Department Care Team Description 04/24/2021 Hospital Encounter Mammography[place]DXA at Giselle Calhoun [facility] [place] screening mammogram [facility] [address] for [facility] cancer [address] [address] [phone] Social History Tobacco Use Types Packs/Day Years [...] Sig Dispensed Refills Start Date End Date rjckwge-fpwgvqbatpfdc-solpocwn Take 1 tablet by 0 (EXCEDRIN MIGRAINE) [...] Diagnosis Comme nts MAMMO SCREENING CAD Routine 04/24/2021 7:42 AM Encounter for R esults for this AND REEES BILATERAL EDT screening mammogram pr ocedure are in for breast cancer the result s section. documented in this encounter Results Mammo Screening Cad and Reese Bilateral (04/24/2021 7:42 AM EDT) Anatomical Region Laterality Modality Breast Bilateral Mammography Specimen (Source) Anatomical Location Collection Method / Collectio n Time Received Time / Laterality Volume Narrative 04/24/2021 8:45 AM EDT BILATERAL MAMMOGRAPHY REASON FOR EXAM: Screening TECHNIQUE: [...] CONCLUSION: No mammographic evidence of malignancy. RECOMMENDATION: Regular screening mammograms starting be tween age 40 and 50 reduces the risk of from breast cancer. All screening tests have both risks and benefits. These risks and benefits should be assessed for each individual p atient through discussion with their provider to determine their prefer red breast cancer screening schedule. Women should report any breast changes t o a health care provider right away. Some women, because of their family hist ory, a genetic tendency, or other factors, should be screened with annual breast MRI as well as with mammograms. (The number of women who fal l into this category is very small). Patients and health care provide rs should discuss each patient? s history to decide if earlier screening a nd/or breast MRI are appropriate. Screening should continue as long as a w naeem is in good health and is expected to live 10 years or longer. Screening mammography may not detect 10- 15% of breast cancers. A result letter has been sent to this arash tient by the [facility]. BIRADS CATEGORY 1: NEGATIVE Electronically signed by: CORDELL PERALES MD Levon TORREZ MAMMO ORDERABLES documented in this encounter Visit Diagnoses Diagnosis Encounter for screening mammogram for br east cancer documented in this encounter Care Teams Expeller Operator Relationship Specialty Start Date End Date Tammy Jewell, CARBON CLEANER PCP - General Family Medicine 08/25/18 [address] [place] [address] documented as of this encounter
--- OUTSIDE RECORDS SUMMARY | 2022-08-31 00:49 | XMS_ITS | Encounter Summary ---
:1955 Author Organization [facility] Address [address] [place] [address] Care Team Providers Name Role Phone Delmis Dueñas MD Primary Care Provider Encounter Details Date Type Department Care Team Description 10/01/2016 Hospital Encounter Mammography at [facility] Spenser, Encounter for [facility] MD Delmis screening mammogram Drive [address] for malignant [place], [place], [place] [address] [place] [address] [phone] Social History Tobacco Use Types Packs/Day Years [...] Sig Dispensed Refills Start Date End Date cqjjhrk-pzjuucrrozkfi-fflxsicw Take 1 tablet by 0 (EXCEDRIN MIGRAINE) [...] Diagnosis Comme nts MAMMO SCREENING CAD Routine 10/01/2016 2:27 PM Encounter for R esults for this AND REESE BILATERAL EST screening mammogram pr ocedure are in for malignant the results neoplasm of breast section. documented in this encounter Results Mammo Screen CAD and Reese Bilat (Generic) (10/01/2016 2:27 PM EST) Anatomical Region Laterality Modality Breast Bilateral Mammography Specimen (Source) Anatomical Location Collection Method / Collectio n Time Received Time / Laterality Volume Narrative 10/02/2016 9:02 AM EST BILATERAL MAMMOGRAPHY REASON FOR EXAM: [...] CONCLUSION: No mammographic evidence of malignancy. RECOMMENDATION: The [employer] and The Society of Breast Imaging recommend annual screenin g beginning at age 40 for the general female population. Screening adiel uld continue as long as a woman is in good health and is expected to live 1 0 more years or longer. All women should be familiar with the known benefi ts, limitations, and potential harms linked to breast cancer screening. They should also know how their breasts normally look and feel and repor t any breast changes to a health care provider right away. Some women - b ecause of their family history, a genetic tendency, or certain other facto rs - should be screened with MRIs along with mammograms. (The number of wo men who fall into this category is very small.) The patient and health care provider should discuss the patient history and decide if earlier sc reening and breast MRI are appropriate. A result letter has been sent to this pa tient by the [facility]. BIRADS CATEGORY 1: NEGATIVE Delmis Dueñas MD IMG MAMMO ORDERABLES documented in this encounter Visit Diagnoses Diagnosis Encounter for screening mammogram for ma lignant neoplasm of breast Other screening mammogram documented in this encounter Care Teams Hand Stoner Relationship Specialty Start Date End Date Delmis Dueñas MD PCP - General 09/19/10 08/24/18 [address] [place] [address] documented as of this encounter
--- OUTSIDE RECORDS SUMMARY | 2022-08-31 00:49 | XMS_ITS | Encounter Summary ---
:1955 Author Organization [facility] [place] [address] Care Team Providers Name Role Phone Delmis Dueñas MD Primary Care Provider Reason for Visit Reason Onset Date Comments Follow-up 09/07/2014 Encounter Details Date Type Department Care Team Description 09/07/2014 Telephone [place] [facility] Mo [place] [facility]-up [facility] [place] [address] ORTHOPAEDIC SURGERY [phone] [place], [place] [address] (Wo rk) Social History Tobacco [...] this encounter Miscellaneous Notes Telephone Encounter - Marita Kramer - 09/08/2014 9:36 AM EST APPT SCHEDULED Telephone Encounter - Sabrina Hicks - 09/07/2014 4:56 PM EST Spoke to patient about scheduling a 2-month follow up from office visit on 09/[address] Mo. She was on her cell phone and the call was lost. documented in this encounter Plan of Treatment Not on filedocumented as of this encounter Visit Diagnoses Not on filedocumented in this encounter Care Teams Spread Cutter Relationship Specialty Start Date End Date Delmis Dueñas MD PCP - General 09/19/10 08/24/18 [address] [place] [address] documented as of this encounter
--- OUTSIDE RECORDS SUMMARY | 2022-08-31 00:49 | XMS_ITS | Encounter Summary ---
:1955 Author Organization [facility] Address [address] [place] [address] Care Team Providers Name Role Phone Delmis Dueñas MD Primary Care Provider Encounter Details Date Type Department Care Team Description 10/02/2017 Hospital Encounter [facility]ammography at [facility] [place] Encounter for [facility] MD Delmis screening mammogram Drive [address] for breast cancer [facility], [phone] [place] [id number] Social History Tobacco Use Types Packs/Day Years [...] Sig Dispensed Refills Start Date End Date shznban-zimhskthzpixj-wslvqdfp Take 1 tablet by 0 (EXCEDRIN MIGRAINE) [...] Diagnosis Comme nts MAMMO SCREENING CAD Routine 10/02/2017 3:50 PM Encounter for R esults for this AND REESE BILATERAL EST screening mammogram pr ocedure are in for breast cancer the result s section. documented in this encounter Results Mammo Screen CAD and Reese Bilat (Generic) (10/02/2017 3:50 PM EST) Anatomical Region Laterality Modality Breast Bilateral Mammography Specimen (Source) Anatomical Location Collection Method / Collectio n Time Received Time / Laterality Volume Narrative 10/03/2017 8:33 AM EST BILATERAL MAMMOGRAPHY REASON FOR EXAM: [...] No mammographic evidence of malignancy. RECOMMENDATION: [employer] [employer] and The Society of [...] cancer documented in this encounter Care Teams Staffing Associate Relationship Specialty Start Date End Date Delmis Dueñas MD PCP - General 09/19/10 08/24/18 [address] [place] [address] documented as of this encounter
--- OUTSIDE RECORDS SUMMARY | 2022-08-31 00:49 | XMS_ITS | Encounter Summary ---
:1955 Author Organization [place] [address] Care Team Providers Name Role Phone Delmis Dueñas MD Primary Care Provider Reason for Visit Reason Comments [facility] Of [facility] Right FREDO 08/09/14 Encounter Details Date Type Department Care Team Description 08/30/2016 Office Visit Orthopaedics at [facility] Rogelio Maldonado S/Saad hip replacement, [facility] [place] [address] ORTHOPAEDIC SURGERY [phone] [place], [place] [address] (Wo rk) Social History Tobacco [...] Pulse 70 08/30/2016 3:16 PM EDT Temperature - - Respiratory Rate - - Oxygen Saturation - - Inhaled Oxygen Concentration - - Weight 65.8 kg (145 lb) 08/30/2016 3:16 PM EDT Height 152.4 cm (5') 08/30/2016 3:16 PM EDT Body Mass Index 28.32 08/30/2016 3:16 PM EDT documented in this encounter Progress Notes Rogelio Maldonado PA - 08/30/2016 4:00 PM EDT Case Date: 08/09/2014 Procedure Performed: right Total Hip Arthroplasty Surgeon: Neri Mo MD Implants Used: Femoral Stem: DePuy Corail, Size 10 KA Femoral Head: Biolox Delta ceramic, Size 32+5 Acetabulum: DePuy [place] Sector II Gription, Size 48 Adjuvant screw fixation x 1 x 6.5mm (45mm) Liner: Altrx polyethylene, Size 48x32 +4 neutral HPI: 61 y.o. year-old female returns. She is 2 years from her hip replacement. She continues to do well. She continues to have some discomfort to the anterior hip with active flexion. This is much better than previous but still present. She is pleased with the results of the operation. [facility] Surgical Followup Visit 08/30/2016 PROMIS-10 General Health Very Good PROMIS-10 Quality of Life Very Good PROMIS-10 Physical Health Very Good PROMIS-10 Mental Health Very Good PROMIS-10 Social Activity Very Good PROMIS-10 Everyday Activities Mostly PROMIS-10 Pain 1 PROMIS-10 Fatigue Mild PROMIS-10 Social Roles Very Good PROMIS-10 Anxious or Depressed Rarely PROMIS PHYSICAL HEALTH SCORE (range 16-68) 50.8 PROMIS MENTAL HEALTH SCORE (range 21-68) 53.3 HOOS-PS Scores 12.7 Gone to ER since surgery No Admitted to hospital since recent ortho surgery Yes [facility] Date of admission 04/16/2016 Discharge date 04/16/2016 Reason you went to hospital Septum surgery Additional surgery on same body part No [facility] Response 08/30/2016 HOOS-PS Scores 12.7 Spine [facility] Response 08/30/2016 HOOS-PS Scores 12.7 PE: I have made the following determinations: Post Op Left Hip Exam: Leg Length: Longer leg: equal Limb Length discrepancy: 0cm Motion: Flexion contracture: 0 Total degrees of Flexion: 105 Total degrees of Abduction: 15 Total degrees of Ext Rotation: 15 Total degrees of Internal Rotation: 15 Gait Abnormality: Normal Pulses Palpable: Left PT: Yes Left DP: Yes Motor/Sensory: Left Distal Motor: Normal Distal Sensory: Normal Hip Abductors: 5 Trendelenburg test: negative X-RAYS: Noncemented implants; no sign of loosening or subsidence. There is increased offset at the right hip than the left which is unchanged since the operation but increased compared to the pre-op film. No fracture or subsidence. No evidence of complication. No change from previous films ASSESSMENT: s/p FREDO PLAN: We discussed her complaints. Her persistent symptoms may be related to the increased offset ofthe FREDO. I encouraged her to continue to work on soft tissue mobilization as this seems to have helped some. We'll see her again in 3 years or sooner as needed. Signed: TRE PURDY 08/30/2016 documented in this encounter Plan of Treatment Not on filedocumented as of this encounter Visit Diagnoses Diagnosis S/P hip replacement, left documented in this encounter Care Teams Equipment Operation Instructor Relationship Specialty Start Date End Date Delmis Dueñas MD PCP - General 09/19/10 08/24/[address] [address] documented as of this encounter
--- OUTSIDE RECORDS SUMMARY | 2022-08-31 00:49 | XMS_ITS | Encounter Summary ---
:1955 Author Organization [employer] Address [address] [facility] [place] [address] Care Team Providers Name Role Phone Delmis Dueñas MD Primary Care Provider Encounter Details Date Type Department Care Team Description 08/23/2015 Hospital Encounter XRay at [facility] [place] Neri Mo S/P right anterior [address] Nick MD total hip [place], [place] [facility] arthroplasty [address] [place]) [phone] [place] [address] Social History Tobacco Use Types Packs/Day Years [...] Sig Dispensed Refills Start Date End Date euwjbju-dfwwlzsikyjdr-wndiasec Take 1 tablet by 0 (EXCEDRIN MIGRAINE) [...] Name Priority Date/Time Associated Diagnosis Comme nts XR PELVIS AND LAT Routine 08/23/2015 10:51 S/P right anterior Results for this HIP RIGHT AM EDT total hip procedure are i n arthroplasty 08/09/14 the re sults ([place]) section. documented in this encounter Results XR Pelvis And Lateral Hip Right (08/23/2015 10:51 AM EDT) Anatomical Region Laterality Modality Pelvis, Hip Right Digital Radiography Specimen (Source) Anatomical Location Collection Method / Collectio n Time Received Time / Laterality Volume Impressions 08/23/2015 11:08 AM EDT IMPRESSION: Right total hip arthroplasty without zelda nge or complication. Narrative 08/23/2015 11:08 AM EDT EXAMINATION: XR PELVIS AND LATERAL HIP RIGHT CLINICAL HISTORY: right FREDO TECHNIQUE: AP pelvis and lateral view ri t hip COMPARISON: 09/07/2014 FINDINGS: Following right total hip arthroplasty n o change or complication is identified. Procedure Note Tommy Cassidy MD - 08/23/2015Forma tting of this note might be different from the original. EXAMINATION: XR PELVIS AND LATERAL HIP R IGHT CLINICAL HISTORY: right FREDO TECHNIQUE: AP pelvis and lateral view ri t hip COMPARISON: 09/07/2014 FINDINGS: Following right total hip arthroplasty n o change or complication is identified. IMPRESSION IMPRESSION: Right total hip arthroplasty without zelda nge or complication. Dr Hartley [facility] IM DX ORDERABLES documented in this encounter Visit Diagnoses Diagnosis S/P right anterior total hip arthroplast y 08/09/14 ([place]) Hip joint replacement by other means documented in this encounter Care Teams Meter Tester Primary Relationship Specialty Start Date End Date Delmis Dueñas MD PCP - General 09/19/10 08/24/18 [address] [place] [address] documented as of this encounter
--- OUTSIDE RECORDS SUMMARY | 2022-08-31 00:49 | XMS_ITS | Encounter Summary ---
:1955 Author Organization [facility] [place] [address] Care Team Providers Name Role Phone Delmis Dueñas MD Primary Care Provider Reason for Visit Reason Onset Date Comments Post Hospital Discharge 08/12/2014 Encounter Details Date Type Department Care Team Description 08/12/2014 Telephone Orthopaedics at [facility] [place] Yanely Henriquez, Post Hospital Discharge [facility] [place] [address] Social History Tobacco Use Types Packs/Day Years [...] this encounter Miscellaneous Notes Telephone Encounter - Yanely Benton RN - 08/12/2014 1:32 PM EDT Date of surgery 08/09/14 Type of surgery right total hip replacement Surgeon: Rober Mo Call made within 2 weeks of discharge? Yes Is pain under control?yes Having bowel movements?yes Concerns with incision?no Has the [facility] been in contact?yes Anticoagulation plan? .Aspirin 325 mg BID for six weeks Rehab facility? Concerns? documented in this encounter Plan of Treatment Not on filedocumented as of this encounter Visit Diagnoses Not on filedocumented in this encounter Care Teams Adjunct Communications Faculty Member Relationship Specialty Start Date End Date Delmis Dueñas MD PCP - General 09/19/10 08/24/18 [address] [place] [address] documented as of this encounter
--- OUTSIDE RECORDS SUMMARY | 2022-08-31 00:49 | XMS_ITS | Encounter Summary ---
:1955 Author Organization [facility] [place] [place] [address] Care Team Providers Name Role Phone Delmis Dueñas MD Primary Care Provider Encounter Details Date Type Department Care Team Description 08/30/2016 Hospital Encounter XRay at [facility] Cory Salas Status post total [address] Patricia MD hip replacement, [facility] [address] [place] [phone] ORTHOPAEDICS [place] [id number] Social History Tobacco Use Types Packs/Day Years [...] Sig Dispensed Refills Start Date End Date cyxberu-vrkuloaqirexl-qqcggwln Take 1 tablet by 0 (EXCEDRIN MIGRAINE) [...] Associated Diagnosis Comme nts XR PELVIS AND HIP 2 Routine 08/30/2016 2:56 PM Status post tot al Results for this VIEWS RIGHT EDT hip replacement, procedure a re in right the results section. documented in this encounter Results XR Pelvis w AP & Lat Hip Right (08/30/2016 2:56 PM EDT) Anatomical Region Laterality Modality Pelvis, Hip Right Digital Radiography Specimen (Source) Anatomical Location Collection Method / Collectio n Time Received Time / Laterality Volume Impressions 08/30/2016 3:46 PM EDT Right total hip arthroplasty without evidence of complication. I have personally reviewed the image(s) and the residents interpretation and agree with the findings, TERESA ARCHER at 08/30/2016 3:46 PM Narrative 08/30/2016 3:46 PM EDT EXAMINATION: XR PELVIS W AP AND LAT HIP RIGHT CLINICAL HISTORY: Status post total hip arthroplasty. TECHNIQUE: AP pelvis, AP and lateral vie ws of the right hip COMPARISON: Radiograph the pelvis 2014, 09/07/2014, and 08/09/2014 FINDINGS: Patient is status post right total hip a rthroplasty. No evidence of complication. The left hip joint space i s preserved. There are unchanged degenerative changes of the sacroiliac j oints. The sacrum is largely obscured by overlying bowel gas. Procedure Note Teresa Archer MD - 08/30/2016Formatting o f this note might be different from the original. EXAMINATION: XR PELVIS W AP AND LAT HIP RIGHT CLINICAL HISTORY: Status post total hip arthroplasty. TECHNIQUE: AP pelvis, AP and lateral vie ws of the right hip COMPARISON: Radiograph the pelvis 2014, 09/07/2014, and 08/09/2014 FINDINGS: Patient is status post right total hip a rthroplasty. No evidence of complication. The left hip joint space i s preserved. There are unchanged degenerative changes of the sacroiliac j oints. The sacrum is largely obscured by overlying bowel gas. IMPRESSION Right total hip arthroplasty without eva dence of complication. I have personally reviewed the image(s) and the residents interpretation and agree with the findings, TERESA LE at 08/30/2016 3:46 PM Cory Salas MD IMG DX ORDERABLES documented in this encounter Visit Diagnoses Diagnosis Status post total hip replacement, right documented in this encounter Care Teams Crew Attendant Relationship Specialty Start Date End Date Delmis Dueñas MD PCP - General 09/19/10 08/24/18 [address] [place] [address] documented as of this encounter
--- OUTSIDE RECORDS SUMMARY | 2022-08-31 00:49 | XMS_ITS | Encounter Summary ---
:1955 Author Organization [facility] Address [address] [place] [address] Care Team Providers Name Role Phone Tammy Jewell APRN Primary Care Provider Reason for Visit Reason Onset Date Comments Questions 06/15/2019 Antibiotics prior to dental work Encounter Details Date Type Department Care Team Description 06/15/2019 Telephone Orthopaedics at [facility] Esthela He, RN Questions (Antibiotics One [facility] [address] prior to dental work) [place] [address] Social History Tobacco Use Types Packs/Day [...] this encounter Miscellaneous Notes Telephone Encounter - Esthela He RN - 06/15/2019 8:48 AM EDT Images from the original note were not included. Patient called to inquire if it is recommended she take antibiotics prior to dental procedure. I asked patient the AAOS indications questionnaire: Indication Profile Planned Dental Procedure Dental procedures that involve manipulation of gingival tissue or the periapical region of teeth or perforation of the oral mucosa Immunocompromised Status Severely Immunocompromised Diabetic Glycemic Control No current or active diabetes diagnosis History of periprosthetic or deep prosthetic joint infection that required an operation No history of periprosthetic or deep prosthetic joint infection that required an operation Timing since joint replacement procedure 1 year or longer Procedure Recommendations + Rarely appropriate to prescribe prophylactic antibiotics I informed patient as per AAOS, it is not recommended to have prophylactic antibiotics prior to dental procedures. documented in this encounter Plan of Treatment Not on filedocumented as of this encounter Visit Diagnoses Not on filedocumented in this encounter Care Teams Manager Community Relations Relationship Specialty Start Date End Date Tammy Jewell APRN PCP - General Family Medicine 08/25/18 [address] [place] [address] documented as of this encounter
--- OUTSIDE RECORDS SUMMARY | 2022-08-31 00:49 | XMS_ITS | Encounter Summary ---
:1955 Author Organization [facility] [place] [address] Care Team Providers Name Role Phone Tammy Jewell APRN Primary Care Provider Encounter Details Date Type Department Care Team Description 05/02/2022 Hospital Encounter Mammography/DXA at [facility] for [facility] [place] screening mammogram [facility] [address] for [facility] cancer [address] [address] [phone] Social History Tobacco Use Types Packs/Day Years [...] Sig Dispensed Refills Start Date End Date czdydco-najnwjzsqlwlh-zluyolkj Take 1 tablet by 0 (EXCEDRIN MIGRAINE) [...] Diagnosis Comme nts MAMMO SCREENING CAD Routine 05/02/2022 7:50 AM Encounter for R esults for this AND REESE BILATERAL EDT screening mammogram pr ocedure are in for breast cancer the result s section. documented in this encounter Results Mammo Screening Cad and Reese Bilateral (05/02/2022 7:50 AM EDT) Anatomical Region Laterality Modality Breast Bilateral Mammography Specimen (Source) Anatomical Location Collection Method / Collectio n Time Received Time / Laterality Volume Narrative 05/02/2022 8:09 AM EDT BILATERAL MAMMOGRAPHY REASON FOR EXAM: [...] letter has been sent to this arash lizama [facility]. BIRADS CATEGORY 1: NEGATIVE Electronically signed by: CORDELL PERALES MD Levon TORREZ MAMMO ORDERABLES documented in this encounter Visit Diagnoses Diagnosis Encounter for screening mammogram for [facility] cancer documented in this encounter Care Teams Programming Manager Relationship Specialty Start Date End Date Tammy Jewell APRN PCP - General Family Medicine 08/25/18 [address] [place] [address] documented as of this encounter
--- OUTSIDE RECORDS SUMMARY | 2022-08-31 00:50 | XMS_ITS | Encounter Summary ---
:1955 Author Organization [facility] Address [facility] [place] [address] Care Team Providers Name Role Phone Delmis Dueñas MD Primary Care Provider Encounter Details Date Type Department Care Team Description 08/03/2014 Clinical Support Same Day at [facility] Post-traumatic [facility] osteoarth [place]itis [place] [address] Social History Tobacco Use Types Packs/Day Years Used Date Never Smoker Smokeless Tobacco: Never Used Alcohol Use Standard Drinks/Week Comments Yes 4 (1 standard drink = 0.6 oz pure alcoho l) Sex Assigned at Date Recorded Not on file documented as of this encounter Last Filed Vital Signs Vital Sign Reading Time Taken Comments Blood Pressure - - Pulse 91 08/03/2014 10:22 AM EDT Temperature - - Respiratory Rate - - Oxygen Saturation 100% 08/03/2014 10:22 AM EDT Inhaled Oxygen Concentration - - Weight 71.9 kg (158 lb 9.6 oz) 08/03/2014 10:22 AM EDT Height 147.3 cm (4' 10) 08/03/2014 10:22 AM EDT Body Mass Index 33.15 08/03/2014 10:22 AM EDT documented in this encounter Progress Notes Ale Ricketts RN - 08/03/2014 11:01 AM EDT PAT questionnaire reviewed with patient while in Pre Admission testing. Many surgeries most typically with PONV. Hypertension during gall bladder surgery led to her being admitted for overnight observation. History of nasal fracture and pt is unable to breathe through right nostril. Pt gets migraines if does not have her caffeine from coffee intake. Pre-operative instruction booklet reviewed. Patientverbalizes a good understanding of all information reviewed. PLAN: Testing: Blood and urine. EKG. CXR Special medication instructions: n/a Procedure date: 08-09-[address] Mo documented in this encounter Plan of Treatment Not on filedocumented as of this encounter Procedures Procedure Name Priority Date/Time Associated Diagnosis Comme nts EKG 12-LEAD Routine 08/03/2014 11:13 AM Post-traumatic Result s for this EDT osteoarthritis of right proc edure are in hip the results section. documented in this encounter Results EKG 12 Lead (08/03/2014 11:13 AM EDT) [facility] gist Method Time Signature Ventricular rate 71 BPM MUSE SYSTEM Atrial Rate 71 BPM MUSE SYSTEM P-R Interval 164 ms MUSE SYSTEM QRS Duration 86 ms MUSE SYSTEM Q-T Interval 398 ms MUSE SYSTEM QTC Calculated 432 ms MUSE SYSTEM (Bezet) Calculated P [place] 22 degrees MUSE SYSTEM Calculated R [place] 1 degrees MUSE SYSTEM Calculated T [place] 7 degrees MUSE SYSTEM INTERPRETATION Normal sinus rhythm MUSE SYSTEM Normal ECG No previous ECGs available Confirmed by MD RAJ, LUTHER ([id number]) on 08/03/2014 2:38:57 PM Specimen Anatomical Collection Method Collection Time Receive d Time (Source) Location / / Volume Laterality 08/03/2014 11:13 08/03/2014 2:38 AM EDT PM EDT Neri Mo MD ECG ORDERABLES Performing Organization Address City/State/ZIP Code Phon e Number MUSE SYSTEM documented in this encounter Visit Diagnoses Diagnosis 

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
--- OUTSIDE RECORDS SUMMARY | 2022-08-31 00:50 | XMS_ITS | Encounter Summary ---
:1955 Author Organization [facility] Address [facility] [address] [place] [address] Care Team Providers Name Role Phone Delmis Dueñas MD Primary Care Provider Encounter Details Date Type Department Care Team Description 09/17/2013 Orders Only Radiology Sabrina Awad MD Abnormal mammogram, Replaced by [facility] uns pecified ([address]) [place] [address] DIAGNOSTIC [phone] RADIOLOGY [place], [place] [address] Social History Tobacco Use Types Packs/Day Years Used Date Never Smoker Alcohol Use Standard Drinks/Week Comments Yes 4 (1 standard drink = 0.6 oz pure alcoho l) Sex Assigned at Date Recorded Not on file documented as of this encounter Plan of Treatment Not on filedocumented as of this encounter Results Mammo breast US unilateral bilateral (03/19/2014 9:24 AM EDT) Anatomical Region Laterality Modality Breast N/A Mammography Specimen (Source) Anatomical Collection Method Collection Time Re ceived Time Location / / Volume Laterality 03/19/2014 9:24 AM EDT Narrative 03/20/2014 7:26 AM EDT LEFT BREAST ULTRASOUND ON 03/19/14: DIAGNOSTIC IMAGING SUMMARY: LEFT BREAST LESION 1: PROBABLY BENIGN (B IRADS Category 3). Finding: Cluster of cysts with adjacent vessel. Size: 5mm by ultrasound. Location: 1000, 6cm from the nipple. Recommendation: This benign appearing cl uster of cysts with an immediately adjacent vessel appears benign and stabl e since the prior study of 09/17/13. No internal vessel is seen on today's exam. Recommend continued follow-up to confirm stability of this benign appeari ng complicated cyst versus a cluster of adjacent simple cysts. Repeat six-month ultrasound of the Left breast is recommended at the time of the patient's annual bilateral mammogram in 09/10. This has been scheduled for 09/17/14 at 1:00pm. Findings discussed with the patient who concurs. Preliminary report E-mailed to Dr. Dlemis Dueñas on 03/19/14. NARRATIVE: CLINICAL INDICATION: BIRADS Category 3 p robably benign Left breast for a cluster of cysts. FINDINGS: This is a (BIRADS Category 3) PROBABLY BENIGN Left breast for a 5 x 3 x 2mm ovoid, predominantly anechoic, par tly hypoechoic mass at 1000, 6cm from the nipple which has the appearance of a cluster of cysts as before. Doppler evaluation demonstrates peripheral vesse ls superficial to this lesion. No definite solid component identified and this lesion is felt to represent a cluster of cysts with intervening tissue ; a complex cystic or solid lesion is less likely. Procedure Note Bozena Marquez MD - 4 LEFT BREAST ULTRASOUND ON 03/19/14: DIAGNOSTIC IMAGING SUMMARY: LEFT BREAST LESION 1: PROBABLY BENIGN (B IRADS Category 3). Finding: Cluster of cysts with adjacent vessel. Size: 5mm by ultrasound. Location: 1000, 6cm from the nipple. Recommendation: This benign appearing cl uster of cysts with an immediately adjacent vessel appears benign and stabl e since the prior study of 09/17/13. No internal vessel is seen on today's exam. Recommend continued follow-up to confirm stability of this benign appeari ng complicated cyst versus a cluster of adjacent simple cysts. Repeat six-month ultrasound of the Left breast is recommended at the time of the patient's annual bilateral mammogram in 09/10. This has been scheduled for 09/17/14 at 1:00pm. Findings discussed with the patient who concurs. Preliminary report E-mailed to Dr. Delmis Dueñas on 03/19/14. NARRATIVE: CLINICAL INDICATION: BIRADS Category 3 p robably benign Left breast for a cluster of cysts. FINDINGS: This is a (BIRADS Category 3) PROBABLY BENIGN Left breast for a 5 x 3 x 2mm ovoid, predominantly anechoic, par tly hypoechoic mass at 1000, 6cm from the nipple which has the appearance of a cluster of cysts as before. Doppler evaluation demonstrates peripheral vesse ls superficial to this lesion. No definite solid component identified and this lesion is felt to represent a cluster of cysts with intervening tissue ; a complex cystic or solid lesion is less likely. Sabrina Awad MD IMG MAMMO ORDERABLES documented in this encounter Visit Diagnoses Diagnosis Abnormal mammogram, unspecified - Primar y Abnormal mammogram, unspecified documented in this encounter Care Teams Apparel Pattern Maker Relationship Specialty Start Date End Date Delmis Dueñas MD PCP - General 09/19/10 08/24/18 [address] [place] [address] documented as of this encounter
--- OUTSIDE RECORDS SUMMARY | 2022-08-31 00:50 | XMS_ITS | Encounter Summary ---
:1955 Author Organization [facility] [place] [address] Care Team Providers Name Role Phone Delmis Dueñas MD Primary Care Provider Encounter Details Date Type Department Care Team Description 09/08/2012 Surgery Gastroenterology at [facility] Tj Daily, COLONOSCOPY, [facility] Ernie [place] [address] [facility] [phone] DR GASTROENTEROLOGY [place] [id number] Social History Tobacco Use Types Packs/Day Years Used Date Never Smoker Alcohol Use Standard Drinks/Week Comments Yes 4 (1 standard drink = 0.6 oz pure alcoho l) Sex Assigned at Date Recorded Not on file documented as of this encounter Last Filed Vital Signs Vital Sign Reading Time Taken Comments Blood Pressure 129/63 09/08/2012 1:36 PM EST Pulse 75 09/08/2012 1:36 PM EST Temperature 36.8 ??C (98.2 ??F) 09/08/2012 12:26 PM EST Respiratory Rate 18 09/08/2012 1:36 PM EST Oxygen Saturation 93% 09/08/2012 1:36 PM EST Inhaled Oxygen Concentration - - Weight - - Height - - Body Mass Index - - documented in this encounter Discharge Instructions Discharge Evelyne Chu RN - 09/08/2012 1:37 PM EST Please call [phone], before 5pm with problems, questions or concerns, after 5pm call the Hospital at [phone] and ask to speak to the Research Methodologist extension educator and the dye automation operator will contact that person for you. Discharge instructions reviewed with patient who expresses understanding. You may have received medications before and/or during your procedure which effects your judgement and reaction time. Do not drive, operate machinery, drink alcoholic beverages or make important decisions for 24 hours. Be careful on stairs as you may be unsteady on your feet. You may eat a regular diet as tolerated. Do not smoke if you are alone. IV site: Slight redness or tenderness is normal, you can use a warm compress if you would like. If tenderness and/or redness increase or if foul drainage occurs, please contact your Doctor. AttachmentsThe following attachments cannot be sent through Care Everywhere. COLONOSCOPY: WHAT TO EXPECT AT HOME (BULGARIAN)documented in this encounter Medications at Time of Discharge Medication Sig Dispensed Refills Start Date End Date multivitamin (THERAGRAN) Take 1 tablet by 0 tablet mouth daily. hydrochlorothiazide 25mg, PO, QAM 0 07/13/2004 (HYDRODIURIL) 25 mg tablet polyethylene glycol (MIRALAX) 17 grams PO BID, 0 07/13/2004 17 gram/dose powder PO, BID,PRN CALCIUM PHOSPHATE TRIB/VIT D3 Take by mouth. 0 06/23/2014 (CITRACAL + D ORAL) potassium chloride SA 20meq, PO, QAM 0 08/30/2004 08/03/2014 (K-DUR;KLOR-CON) 20 mEq tablet Triamcinolone Acetonide 0.05 1 Appl(s), Top, 0 08/09/2014 % Oint BID PRN documented as of this encounter H&P Notes Tj Daily MD - 09/08/2012 12:23 PM EST Gastroenterology and Hepatology Pre-Procedure History and Physical Exam Procedure: Colonoscopy: Indication: screen There is no problem list on file for this patient. EXAM: HEENT: Airway examined, oropharynx clear LUNGS: Clear to auscultation HEART: Regular rate and rhythm, normal S1, S2 ABDOMEN: Normal bowel sounds, soft, non tender, non distended, A/P Proceed with the planned endoscopic procedure. Risks and benefits of the procedure explained to the patient. Consent signed. documented in this encounter Miscellaneous Notes Miscellaneous - Provider, Scanning - 09/08/2012 10:55 PM EST Miscellaneous - Provider, Scanning - 09/08/2012 12:19 PM EST documented in this encounter Plan of Treatment Not on filedocumented as of this encounter Procedures Procedure Name Priority Date/Time Associated Comments Diagnosis COLONOSCOPY, 09/08/2012 1:00 PM screening DIAGNOSTIC EST COLONOSCOPY Routine 09/08/2012 12:57 Results for this PM EST procedure are i n the results section. documented in this encounter Results COLONOSCOPY (09/08/2012 12:57 PM EST) [employer] Method Time Signature COLONOSCOPY [facility] Endoscopy Patient Name: Esthela Padron ? Procedure Date: 09/08/2012 12:57 PM ? Date of : 1955 ? Age: 57 ? Order #: [id number] ? Procedure: ? Colonoscopy Indications: ? Screening for colorectal malignant ? neoplasm Providers: ? Tj Daily MD, Esthela Murray , ? RN, Serenity Ann, Scarlett Cline MD: ?Delmis Dueñas MD Medicines: ? Midazolam 4 mg IV, Fentanyl 200 ? micrograms IV, Zofran 4 mg IV Complications: ? No immediate complications. Procedure: ? Pre-Anesthesia Assessment: ? - ASA Grade Assessment: I - A normal, ? healthy patient. ? The procedure, indications, b enefits, ? risks and alternatives were e xplained ? to the patient. Specifically ? discussed were potential ? complications including, but not ? limited to, bleeding, perfora tion, ? infection, missing a cancer, and ? adverse medication reactions. The ? patient was placed in the lef t ? lateral decubitus position, a nd a ? digital rectal exam was perfo rmed. ? The [place] 2011 was insert ed in ? the and under direct visualiz ation, ? advanced to. Careful inspecti on was ? made as the colonoscope was ? withdrawn. The colonoscopy wa s ? performed without difficulty. The ? patient tolerated the procedu re well. ? The quality of the bowel prep aration ? was excellent. ? Findings: ? A few small-mouthed diverticula were found in the ? sigmoid colon and in the descending colon. The ? terminal ileum appeared normal. Internal hemorrhoids ? were found during retroflexion and were small. ? Impression: ?- Diverticulosis in the sigmoid co guzman ? and in the descending colon. ? - The examined portion of the ileum ? was normal. ? - Internal hemorrhoids. Recommendation: ?- Repeat colonoscopy in 10 years for ? surveillance. ? Tj Daily MD 09/08/2012 1:36 PM This report has been signed electronically. Number of Addenda: 0 Note Initiated On: 09/08/2012 12:57 PM Specimen (Source) Anatomical Collection Method Collection Time Re ceived Time Location / / Volume Laterality 09/08/2012 12:57 PM EST Delmis Dueñas MD GENERAL SURGICAL ORDERABLES Performing Organization Address City/State/ZIP Code Phon e Number PROVATION documented in this encounter Visit Diagnoses Not on filedocumented in this encounter Administered Medications Inactive Administered Medications - up to 3 most recent administrations Medication Order MAR Action Action Date Dose Rate Site fentaNYL 50mcg/mL injection Given 09/08/2012 1:13 PM EST 50 mcg ONCE PRN, Starting on Sat09/08/12 at 1303, Until Sat09/08/12 at 1736, Pain, Intra-Operative (Intra-Procedure), Routine Given 09/08/2012 1:08 PM EST 50 mcg Given 09/08/2012 1:03 PM EST 100 mcg midazolam (VERSED) injection Given 09/08/2012 1:14 PM EST 1 mg ONCE PRN, Starting on Sat09/08/12 at 1303, Until Sat09/08/12 at 1736, Sleep, Intra-Operative (Intra-Procedure), Routine Given 09/08/2012 1:08 PM EST 1 mg Given 09/08/2012 1:03 PM EST 2 mg ondansetron (ZOFRAN) injection 4 mg Given 09/08/2012 1:00 PM EST 4 mg 4 mg, Intravenous, ONCE, 1 dose, On Sat09/08/12 at 1330, Endoscopy (Intra-Procedure) documented in this encounter Active and Recently Administered Medications Times are shown in EST. Scheduled Medication Order 09/06/2012 09/07/2012 09/08/2012 ondansetron (ZOFRAN) injection 4 mg (COMPLETED) 1300 (Given - Provider: Esthela Murray RN - Comment: med for nausea)1330 (Due) 4 mg, Intravenous, ONCE, 1 dose, On Sat09/08/12 at 1330, Endoscopy (Intra-Procedure) PRN Medication Order 09/06/2012 09/07/2012 09/08/2012 fentaNYL 50mcg/mL injection (CANCELED) 1303 (Given - Provider: Esthela Murray RN - Comment: first dose of moderate sedation)1308 (Given - Provider: Esthela Murray RN - Comment: med for sedation)1313 (Given - Provider: Esthela Murray RN - Comment: med for sedation) ONCE PRN, Starting 11/12/12 at 1303, Until Sat09/08/12 at 1736, Pain, Intra-Operative (Intra-Procedure), Routine midazolam (VERSED) injection (CANCELED) 1303 (Given - Provider: Esthela Murray RN - Comment: first dose of moderate sedation)1308 (Given - Provider: Esthela Murray RN - Comment: med for sedation)1314 (Given - Provider: Esthela Murray RN - Comment: med for sedation) ONCE PRN, Starting Sat09/08/12 at 1303, Until Sat09/08/12 at 1736, Sleep, Intra-Operative (Intra-Procedure), Routine documented in this encounter Care Teams Supervisor Throwing Department Relationship Specialty Start Date End Date Delmis Dueñas MD PCP - General 09/19/10 08/24/18 [address] [place] [address] documented as of this encounter
--- OUTSIDE RECORDS SUMMARY | 2022-08-31 00:50 | XMS_ITS | Encounter Summary ---
:1955 Author Organization [facility] [place] [address] Care Team Providers Name Role Phone Delmis Dueñas MD Primary Care Provider Encounter Details Date Type Department Care Team Description 06/23/2014 [place] [facility] [place] in [place] [address] [place] [address] [place] [address] Social History Tobacco Use Types Packs/Day [...] 0 07/13/2004 17 gram/dose powder PO, BID,PRN potassium chloride SA 20meq, PO, QAM 0 08/30/2004 08/03/2014 (K-DUR;KLOR-CON) 20 mEq tablet Triamcinolone Acetonide 0.05 1 Appl(s), Top, 0 08/09/2014 % Oint BID PRN documented as of this encounter Plan of Treatment Not on filedocumented as of this encounter Procedures Procedure Name Priority Date/Time Associated Diagnosis Comme nts XR PELVIS AP AND Routine 06/23/2014 8:51 AM Pain in right hip Results for this HIP 2 VIEWS OF 1 EDT procedure a re in HIP the results section. documented in this encounter Results XR pelvis AP and hip 2 views of 1 hip (06/23/2014 8:51 AM EDT) Anatomical Region Laterality Modality Pelvis, Hip N/A Radiographic Imaging Specimen (Source) Anatomical Collection Method Collection Time Re ceived Time Location / / Volume Laterality 06/23/2014 8:51 AM EDT Narrative 06/23/2014 9:04 AM EDT Examination AP PELVIS AND 2 VIEWS ONE HIP/RIGHT Clinical History RT HIP PAIN S/P DISLOCATION 20 YRS AGO 2 ND OP Comparison Sulci radiographs from March 2014. Technique Findings Osteoarthropathy of the right hip is rep resented by diffuse joint space narrowing, subchondral sclerosis, subcho ndral cystic change and small osteophyte formation. ??The right femora l head is deformed, aspherical and smaller than that of the left. ??The fem oral neck is also short. ??The configuration of the right acetabular re yudith normal and is not shallow. The left hip joint space is preserved wi th but with small osteophyte formation. Incidentally noted is osteoarthropathy o f both SI joints represented by joint space narrowing and subchondral sclerosi s. ??There is also spondylosis of the lower lumbar spine with facet arthropath y. Impression ? 1. Osteoarthropathy of the right hip with diffuse loss of right hip joint space. ? 2. Deformed right femoral head li yinka is related to remote injury such as avascular necrosis or Legg Perthes. Procedure Note Dianne Olsen MD - 06/23/2014Formatt ing of this note might be different from the original. Examination AP PELVIS AND 2 VIEWS ONE HIP/RIGHT Clinical History RT HIP PAIN S/P DISLOCATION 20 YRS AGO 2 ND OP Comparison [facility]ci radiographs from March 2014. Technique Findings Osteoarthropathy of the right hip is rep resented by diffuse joint space narrowing, subchondral sclerosis, subcho ndral cystic change and small osteophyte formation. The right femoral head is deformed, aspherical and smaller than that of the left. The femor al neck is also short. The configuration of the right acetabular re yudith normal and is not shallow. The left hip joint space is preserved wi th but with small osteophyte formation. Incidentally noted is osteoarthropathy o f both SI joints represented by joint space narrowing and subchondral sclerosi s. There is also spondylosis of the lower lumbar spine with facet arthropath y. Impression 1. Osteoarthropathy of the right hip wi th diffuse loss of right hip joint space. 2. Deformed right femoral head likely i s related to remote injury such as avascular necrosis or Legg Perthes. Neri Mo MD IMG DX ORDERABLES documented in this encounter Visit Diagnoses Diagnosis Pain in right hip Pain in joint, pelvic region and thigh documented in this encounter Care Teams Dumpling Machine Operator Relationship Specialty Start Date End Date Delmis Dueñas MD PCP - General 09/19/10 08/24/18 [address] [place] [address] documented as of this encounter
--- OUTSIDE RECORDS SUMMARY | 2022-08-31 00:50 | XMS_ITS | Encounter Summary ---
:1955 Author Organization [facility] [place] [address] Care Team Providers Name Role Phone Delmis Dueñas MD Primary Care Provider Reason for Visit Reason Onset Date Comments Pre Procedure Call 06/29/2014 Encounter Details Date Type Department Care Team Description 06/29/2014 Telephone Orthopaedics at [facility] [place] Neri Mo, Pre Procedure Call [facility] [place] [address] [facility] [phone] DR ORTHOPAEDIC SURG [place], [place] [address] (Wo rk) Social History Tobacco Use Types Packs/Day Years Used Date Never Smoker Smokeless Tobacco: Never Used Alcohol Use Standard Drinks/Week Comments Yes 4 (1 standard drink = 0.6 oz pure alcoho l) Sex Assigned at Date Recorded Not on file documented as of this encounter Miscellaneous Notes Telephone Encounter - Viji Garcia - 06/29/2014 2:33 PM EDT Returned patient's call. Moved up patient's [address] Mo to 2:30pm per patient's request. Telephone Encounter - Vera Avalos - 06/29/2014 8:42 AM EDT Patient wants to change her pre surgery SH7 appointment CASE REQ 08/09/14 RIGHT ANT FREDO with Dr. Mo to an earlier time on 08.03.14. Please call her on her cell phone at [phone]. documented in this encounter Plan of Treatment Not on filedocumented as of this encounter Visit Diagnoses Not on filedocumented in this encounter Care Teams Sales Analytics Manager Relationship Specialty Start Date End Date Delmis Dueñas MD PCP - General 09/19/10 08/24/18 [address] [place] [address] documented as of this encounter
--- OUTSIDE RECORDS SUMMARY | 2022-08-31 00:50 | XMS_ITS | Encounter Summary ---
:1955 Author Organization [facility] Address [place] [address] Care Team Providers Name Role Phone Delmis Dueñas MD Primary Care Provider Encounter Details Date Type Department Care Team Description 09/11/2013 Hospital Encounter Mammography at [facility], [place] JO[facility] Delmis Corea MD [address] [place] [address] [place] [address] Social History Tobacco Use Types Packs/Day [...] Diagnosis Comme nts MAMMO SCREENING CAD Routine 09/11/2013 9:23 AM Re sults for this BILATERAL EST procedure are i n the results section. documented in this encounter Results Mammo digital bilateral Screening with CAD (09/11/2013 9:23 AM EST) Anatomical Region Laterality Modality Breast Bilateral Mammography Specimen (Source) Anatomical Collection Method Collection Time Re ceived Time Location / / Volume Laterality 09/11/2013 9:23 AM EST Narrative 09/14/2013 1:52 PM EST REASON FOR EXAM: Screening ?? TECHNIQUE: Cranio-caudal (CC) and mediol ateral oblique (MLO) views of the both breasts obtained with direct digital cap ture. The exam was evaluated by CAD Version 8.3.17. ?? LEFT BREAST MAMMOGRAPHY ?? This is an indeterminate (ACR Category 0 ) mammogram of the LEFT breast. There is a question of a mass in the lower, ou ter Left breast, requiring additional imaging. ? RIGHT BREAST MAMMOGRAPHY ?? This is a negative mammogram (ACR Catego ry 1). There is a stable fibroglandular pattern without significant change as co mpared to prior studies. There is no mammographic evidence of cancer. ? The breasts are predominantly fatty. ? CONCLUSION ?? ASSESSMENT IS INCOMPLETE: Additional julio cesar ging recommended (ACR Category 0) of the Left breast. The [facility] er will contact the patient to schedule additional imaging. ?? The contralateral breast is NEGATIVE (AC R Category 1). Routine screening mammography is recommended of the Right breast with the frequency dependent on the patient's age and breast cancer risk factors. Procedure Note Paola Meade MD - 09/14/2013Formattin g of this note might be different from the original. REASON FOR EXAM: Screening TECHNIQUE: Cranio-caudal (CC) and mediol ateral oblique (MLO) views of the both breasts obtained with direct digital cap ture. The exam was evaluated by CAD Version 8.3.17. LEFT BREAST MAMMOGRAPHY This is an indeterminate (ACR Category 0 ) mammogram of the LEFT breast. There is a question of a mass in the lower, ou ter Left breast, requiring additional imaging. RIGHT BREAST MAMMOGRAPHY This is a negative mammogram (ACR Catego ry 1). There is a stable fibroglandular pattern without significant change as co mpared to prior studies. There is no mammographic evidence of cancer. The breasts are predominantly fatty. CONCLUSION ASSESSMENT IS INCOMPLETE: Additional julio cesar ging recommended (ACR Category 0) of the Left breast. The [facility] will contact the patient to schedule additional imaging. The contralateral breast is NEGATIVE (AC R Category 1). Routine screening mammography is recommended of the Right breast with the frequency dependent on the patient's age and breast cancer risk factors. Delmis Dueñas MD IMG MAMMO ORDERABLES documented in this encounter Visit Diagnoses Not on filedocumented in this encounter Care Teams Mds Coordinator Relationship Specialty Start Date End Date Delmis Dueñas MD PCP - General 09/19/10 08/24/18 [address] [place] [address] documented as of this encounter
--- OUTSIDE RECORDS SUMMARY | 2022-08-31 00:50 | XMS_ITS | Encounter Summary ---
:1955 Author Organization [facility] Address [address] [place] [address] Care Team Providers Name Role Phone Delmis Dueñas MD Primary Care Provider Encounter Details Date Type Department Care Team Description 08/31/2011 Hospital Encounter Mammography [place] [facility] Delmis Corea MD [address] [place] [address] [place] [address] Social History Tobacco Use Types Packs/Day Years Used Date Never Assessed Sex Assigned at Date Recorded Not on file documented as of this encounter Medications at Time of Discharge Medication Sig Dispensed Refills Start Date End Date hydrochlorothiazide 25mg, PO, QAM 0 07/13/2004 (HYDRODIURIL) 25 mg tablet polyethylene glycol (MIRALAX) 17 grams PO 0 07/13 17 gram/dose powder BID, PO, BID,PRN potassium chloride SA 20meq, PO, QAM 0 08/30/2004 08/03/2014 (K-DUR;KLOR-CON) 20 mEq tablet Triamcinolone Acetonide 0.05 % 1 Appl(s), Top, 0 07/13/2004 08/09/2014 Oint BID PRN documented as of this encounter Plan of Treatment Not on filedocumented as of this encounter Procedures Procedure Name Priority Date/Time Associated Diagnosis Comme nts MAMMO SCREENING CAD Routine 08/31/2011 9:48 AM Re sults for this BILATERAL EDT procedure are i n the results section. documented in this encounter Results MAMMO DIGITAL BILATERAL SCREENING WITH CAD (08/31/2011 9:48 AM EDT) Anatomical Region Laterality Modality Breast Bilateral Mammography Specimen (Source) Anatomical Collection Method Collection Time Re ceived Time Location / / Volume Laterality 08/31/2011 9:48 AM EDT Narrative 09/06/2011 9:50 AM EST ? BILATERAL MAMMOGRAPHY ?? REASON FOR EXAM: Screening ?? TECHNIQUE: Cranio-caudal (CC) and mediol ateral oblique (MLO) views of both breasts obtained with direct digital cap ture. The exam was evaluated by CAD Version 8.3.17. ?? FINDINGS: This is a negative mammogram ( ACR Category 1). There is a stable fibroglandular pattern without significa nt change as compared to prior studies. There is no mammographic evidence of can cer. ? The breasts are predominantly fatty. ? CONCLUSION ?? This is a NEGATIVE mammogram (ACR Catego ry 1). Routine screening mammography is recommended with the frequency dependent on the patient's age and breast cancer risk factors. ?? A letter has been sent to this patient b y [facility]. Procedure Note Bozena Marquez MD - 1 BILATERAL MAMMOGRAPHY REASON FOR EXAM: Screening TECHNIQUE: Cranio-caudal (CC) and mediol ateral oblique (MLO) views of both breasts obtained with direct digital cap ture. The exam was evaluated by CAD Version 8.3.17. FINDINGS: This is a negative mammogram ( ACR Category 1). There is a stable fibroglandular pattern without significa nt change as compared to prior studies. There is no mammographic evidence of can cer. The breasts are predominantly fatty. CONCLUSION This is a NEGATIVE mammogram (ACR Catego ry 1). Routine screening mammography is recommended with the frequency dependent on the patient's age and breast cancer risk factors. A letter has been sent to this patient b y [facility]. Delmis Dueñas MD IMG MAMMO ORDERABLES documented in this encounter Visit Diagnoses Not on filedocumented in this encounter Care Teams Director Sports Relationship Specialty Start Date End Date Delmis Dueñas MD PCP - General 09/19/10 08/24/[address] [place] [address] documented as of this encounter
--- OUTSIDE RECORDS SUMMARY | 2022-08-31 00:50 | XMS_ITS | Encounter Summary ---
:1955 Author Organization [facility] [place] [address] Care Team Providers Name Role Phone Delmis Dueñas MD Primary Care Provider Encounter Details Date Type Department Care Team Description 08/03/2014 Hospital Encounter XRay at [facility] [place] Post-traumatic [address] [place] [address] Dr [place] [phone] Social History Tobacco Use Types Packs/Day Years [...] mg Tablet by mouth 2 times daily. Triamcinolone Acetonide 1 Appl(s), Top, 0 004 08/09/2014 0.05 % Oint BID PRN documented as of this encounter Plan of Treatment Not on filedocumented as of this encounter Procedures Procedure Name Priority Date/Time Associated Diagnosis Comme nts XR CHEST PA AND Routine 08/03/2014 12:28 Post-traumatic Result s for this LATERAL PM EDT osteoarthritis of right proc edure are in hip the results section. documented in this encounter Results XR chest routine PA & lateral (08/03/2014 12:28 PM EDT) Anatomical Region Laterality Modality Chest N/A Radiographic Imaging Specimen (Source) Anatomical Collection Method Collection Time Re ceived Time Location / / Volume Laterality 08/03/2014 12:28 PM EDT Narrative 08/03/2014 3:11 PM EDT Examination CHEST ROUTINE 2 VIEWS Clinical History Preoperative: R HIP SURGERY Comparison None. Technique PA and lateral chest radiograph. Findings The lungs are clear. ??The cardiomediast inal silhouette, kia, and vascular markings are within normal limits. ??The re is mild elevation of left hemidiaphragm. ??No pleural effusion or pneumothorax. ??Degenerative change of the thoracic spine. Impression No acute cardiopulmonary pathology. Film and interpretation reviewed by the attending Procedure Note Leann Barney MD - 2013 Examination CHEST ROUTINE 2 VIEWS Clinical History Preoperative: R HIP SURGERY Comparison None. Technique PA and lateral chest radiograph. Findings The lungs are clear. The cardiomediastin al silhouette, kia, and vascular markings are within normal limits. There is mild elevation of left hemidiaphragm. No pleural effusion or pn eumothorax. Degenerative change of the thoracic spine. Impression No acute cardiopulmonary pathology. Film and interpretation reviewed by the attending Neri Mo MD IMG DX ORDERABLES documented in this encounter Visit Diagnoses Diagnosis Post-traumatic osteoarthritis of right h ip Secondary localized osteoarthrosis, pelv ic region and thigh documented in this encounter Care Teams Proof Inspector Relationship Specialty Start Date End Date Delmis Dueñas MD PCP - General 09/19/10 08/24/18 [address] [place] [address] documented as of this encounter
--- OUTSIDE RECORDS SUMMARY | 2022-08-31 00:50 | XMS_ITS | Encounter Summary ---
:1955 [address] [facility] [place] [address] Care Team Providers Name Role Phone Delmis Dueñas MD Primary Care Provider Encounter Details Date Type Department Care Team Description 09/17/2013 Hospital Encounter Mammography at [facility] [place], DR RUBIO Abnormal mammogram, [facility] Delmis Dueñas MD [address] [place] [address] [place] [phone] Social History Tobacco Use Types Packs/Day Years [...] Priority Date/Time Associated Diagnosis Comme nts MAMMO CALL BACK Routine 09/17/2013 9:23 AM Abnormal mammogram, Results for this DIAGNOSTIC EXTRA EST unspecified procedure a re in VIEW UNILATERAL the results section. documented in this encounter Results Mammo call back diagnostic extra view unilateral (09/17/2013 9:23 AM EST) Anatomical Region Laterality Modality Breast N/A Mammography Specimen (Source) Anatomical Collection Method Collection Time Re ceived Time Location / / Volume Laterality 09/17/2013 9:23 AM EST Narrative 09/17/2013 4:35 PM EST LEFT DIAGNOSTIC MAMMOGRAM AND LEFT BREAST ULTRASOUND ON 09/17/13: ?? DIAGNOSTIC IMAGING SUMMARY: ?? LEFT BREAST LESION 1: PROBABLY BENIGN (B IRADS Category 3). ?? Finding: Cluster of cysts with immediate ly adjacent vessel. ?? Size: 4mm by ultrasound. ?? Location: 1000, 6cm from the nipple. ?? Recommendation: This lesion is felt to r epresent a cluster of cysts with an immediately adjacent vessel. Given the p resence of this vessel, short interval follow-up with repeat ultrasound and rey mography at the discretion of the radiologist is recommended in six months ' time. This has been scheduled for 03/19/14 at 8:20am. ?? These results were discussed with the arash lizama at the time of the examination. ?? Images were also reviewed by a second ra diologist who concurs. ?? Preliminary report E-mailed to Dr. Delmis Dueñas on 09/17/13. ?? NARRATIVE: ?? CLINICAL INDICATION: Callback from [facility] dated 09/11/13 for a question of a mass in the Left breast. ?? COMPARISON: Bilateral screening mammogra m 09/11/13, 09/05/12, 08/31/11, 08/25/10, 08/19/09 and 08/13/08. ?? TECHNIQUE: Additional views of the Left breast were obtained in the Left CC and ML projections with 3D tomosynthesis as well as Left ML, Left mag CC and Left mag ML views (x2) with direct digital ca pture. Targeted ultrasound of the Left breast was performed. ?? FINDINGS: Initial 2D magnification image s re-demonstrate a 5mm round mass with well-circumscribed margins at approximat reena the 1000 position, 5cm from the nipple. ? On the ML tomographic image there is a s uggestion of a fatty hilum which is not seen on the CC view. ? Targeted ultrasound of the Left breast w as performed at the 1000 position, 6cm from the nipple which demonstrates a pre dominantly anechoic mass measuring 4 x 3 x 2mm. Perez scale images have the appe arance of a cluster of cysts. With color doppler there is internal flow see n within a vessel at the deep margin. As seen on the mammogram, there are prom inent vessels immediately adjacent to and superficial to this lesion. There is no definite solid component identified and this lesion is felt to represent a c luster of cysts with a small vessel immediately adjacent as opposed to a com plex cystic/solid lesion. ? Procedure Note Sabrina Awad MD - 09/17/2013 LEFT DIAGNOSTIC MAMMOGRAM AND LEFT BREAS T ULTRASOUND ON 09/17/13: DIAGNOSTIC IMAGING SUMMARY: LEFT BREAST LESION 1: PROBABLY BENIGN (B IRADS Category 3). Finding: Cluster of cysts with immediate ly adjacent vessel. Size: 4mm by ultrasound. Location: 1000, 6cm from the nipple. Recommendation: This lesion is felt to r epresent a cluster of cysts with an immediately adjacent vessel. Given the p resence of this vessel, short interval follow-up with repeat ultrasound and rey mography at the discretion of the radiologist is recommended in six months ' time. This has been scheduled for 03/19/14 at 8:20am. These results were discussed with the arash lizama at the time of the examination. Images were also reviewed by a second ra diologist who concurs. Preliminary report E-mailed to Dr. Delmis Dueñas on 09/17/13. NARRATIVE: CLINICAL INDICATION: Callback from [facility] mammogram dated 09/11/13 for a question of a mass in the Left breast. COMPARISON: Bilateral screening mammogra m 09/11/13, 09/05/12, 08/31/11, 08/25/10, 08/19/09 and 08/13/08. TECHNIQUE: Additional views of the Left breast were obtained in the Left CC and ML projections with 3D tomosynthesis as well as Left ML, Left mag CC and Left mag ML views (x2) with direct digital ca pture. Targeted ultrasound of the Left breast was performed. FINDINGS: Initial 2D magnification image s re-demonstrate a 5mm round mass with well-circumscribed margins at approximat reena the 1000 position, 5cm from the nipple. On the ML tomographic image there is a s uggestion of a fatty hilum which is not seen on the CC view. Targeted ultrasound of the Left breast w as performed at the 1000 position, 6cm from the nipple which demonstrates a pre dominantly anechoic mass measuring 4 x 3 x 2mm. Perez scale images have the appe arance of a cluster of cysts. With color doppler there is internal flow see n within a vessel at the deep margin. As seen on the mammogram, there are prom inent vessels immediately adjacent to and superficial to this lesion. There is no definite solid component identified and this lesion is felt to represent a c luster of cysts with a small vessel immediately adjacent as opposed to a com plex cystic/solid lesion. Paola Meade MD IMG MAMMO ORDERABLES documented in this encounter Visit Diagnoses Diagnosis Abnormal mammogram, unspecified documented in this encounter Care Teams Meat Grading Machine Operator Relationship Specialty Start Date End Date Delmis Dueñas MD PCP - General 09/19/10 08/24/18 [address] [place] [address] documented as of this encounter
--- OUTSIDE RECORDS SUMMARY | 2022-08-31 00:50 | XMS_ITS | Encounter Summary ---
:1955 Author Organization [facility] [place] [address] Care Team Providers Name Role Phone Delmis Dueñas MD Primary Care Provider Encounter Details Date Type Department Care Team Description 08/03/2014 Office Visit Auditorium [facility] [address] Social History Tobacco Use Types Packs/Day [...] on filedocumented in this encounter Care Teams Jar Filler Relationship Specialty Start Date End Date Delmis Dueñas MD PCP - General 09/19/10 08/24/18 [address] [place], [place] [address] documented as of this encounter
--- OUTSIDE RECORDS SUMMARY | 2022-08-31 00:50 | XMS_ITS | Encounter Summary ---
:1955 Author Organization [facility] [place] [address] Care Team Providers Name Role Phone Delmis Dueñas MD Primary Care Provider Encounter Details Date Type Department Care Team Description 05/10/2014 Orders Only Orthopaedics [place] [facility] [place] Neri Mo, Pain in right hip [facility] (Primary [place]x) [place] [phone] ORTHOPAEDIC SURGERY [place], [place] [address] Social History Tobacco Use Types Packs/Day Years Used Date Never Smoker Alcohol Use Standard Drinks/Week Comments Yes 4 (1 standard drink = 0.6 oz pure alcoho l) Sex Assigned at Date Recorded Not on file documented as of this encounter Plan of Treatment Not on filedocumented as of this encounter Results XR pelvis AP and [...] Visit Diagnoses Diagnosis Pain in right hip - Primary Pain in joint, pelvic region and thigh Pain in right hip Pain in joint, pelvic region and thigh documented in this encounter Care Teams Zigzag Tunnel Elastic Operator Relationship Specialty Start Date End Date Delmis Dueñas MD PCP - General 09/19/10 08/24/18 [address] [place] [address] documented as of this encounter
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
--- OUTSIDE RECORDS SUMMARY | 2022-08-31 00:50 | XMS_ITS | Encounter Summary ---
:1955 Author Organization [facility] Address [facility] [place] [address] Care Team Providers Name Role Phone Delmis Dueñas MD Primary Care Provider Encounter Details Date Type Department Care Team Description 09/05/2012 Hospital Encounter Mammography at [facility], DR JOANNE [facility] Delmis Corea MD [address] [place] [address] [place] [address] Social History Tobacco Use Types Packs/Day [...] Diagnosis Comme nts MAMMO SCREENING CAD Routine 09/05/2012 11:29 AM R esults for this BILATERAL EST procedure are i n the results section. documented in this encounter Results MAMMO DIGITAL BILATERAL SCREENING WITH CAD (09/05/2012 11:29 AM EST) Anatomical Region Laterality Modality Breast Bilateral Mammography Specimen (Source) Anatomical Collection Method Collection Time Re ceived Time Location / / Volume Laterality 09/05/2012 11:29 AM EST Narrative 09/09/2012 10:23 AM EST BILATERAL MAMMOGRAPHY ?? REASON FOR EXAM: Screening [...] [facility] Procedure Note Leann Barney MD - 2011 BILATERAL MAMMOGRAPHY REASON FOR EXAM: Screening TECHNIQUE: [...] on filedocumented in this encounter Care Teams Industrial/Organizational Psychologist Relationship Specialty Start Date End Date Delmis Dueñas MD PCP - General 09/19/10 08/24/18 [address] [place] [address] documented as of this encounter
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
--- OUTSIDE RECORDS SUMMARY | 2022-08-31 00:50 | XMS_ITS | Encounter Summary ---
:1955 Author Organization [facility] [place] [address] Care Team Providers Name Role Phone Delmis Dueñas MD Primary Care Provider Encounter Details Date Type Department Care Team Description 04/02/2014 Orders Only Orthopaedics at [facility] Neri Mo MD [facility] [place] [address] ORTHOPAEDIC SURGERY [phone] [place], [place] [address] (Wo rk) Social History Tobacco Use Types Packs/Day Years Used Date Never Smoker Alcohol Use Standard Drinks/Week Comments Yes 4 (1 standard drink = 0.6 oz pure alcoho l) Sex Assigned at Date Recorded Not on file documented as of this encounter Plan of Treatment Not on filedocumented as of this encounter Procedures Procedure Name Priority Date/Time Associated Diagnosis Comme nts FILM LIBRARY Routine 04/02/2014 6:59 AM Results f or this STORAGE ONLY DX HIP EDT procedur e are in the results section. documented in this encounter Results Film Library- Storage only DX Hip (04/02/2014 6:59 AM EDT) Anatomical Region Laterality Modality Other Specimen (Source) Anatomical Collection Method Collection Time Re ceived Time Location / / Volume Laterality 04/02/2014 6:59 AM EDT Narrative 05/11/2014 7:11 AM EDT This is a Non-reportable exam Procedure Note 05/11/2014 This is a Non-reportable exam Neri Mo MD [facility] FILM LIBRARY ORDERABLES documented in this encounter Visit Diagnoses Not on filedocumented in this encounter Care Teams Installment Dealer Relationship Specialty Start Date End Date Delmis Dueñas MD PCP - General 09/19/10 08/24/18 [address] [place] [address] documented as of this encounter
--- OUTSIDE RECORDS SUMMARY | 2022-08-31 00:51 | XMS_ITS | Encounter Summary ---
:1955 Author Organization [facility] Address [address] [place] [address] Care Team Providers Name Role Phone Unknown, Provider Primary Care Provider Encounter Details Date Type Department Care Team Description 09/22/2013 Results Only [facility] Desiree Rudd MD Laboratory Services - [address] [place] [address] [address] [place] [place] [address] [phone] Social History Tobacco Use Types Packs/Day Years Used Date Never Assessed Sex Assigned at Date Recorded Not on file documented as of this encounter Plan of Treatment Not on filedocumented as of this encounter Procedures Procedure Name Priority Date/Time Associated Diagnosis Comme nts PAP TEST- RESULT Routine 09/22/2013 0:00 EST Resu lts for this ONLY procedure are i n the results section. documented in this encounter Results PAP TEST- RESULT ONLY (09/22/2013 0:00 EST) Pathology Report: CYTOPATHOLOGY REPORT [facility] Reports generated via electronic interface contain cal ginal data; however they are lacking the format of the original re port. Caution should be taken when reading/interpreting unfo rmatted reports. Name: ? BALBIR PADRON ? Accession #: ? [id number] ? : ? 1955 (Age: 58) ??F ?Collect Da te: ? 09/22/2013 ? Location: ? [facility] ? Receive Date: ? 013 ? Provider: CORBY RUDD MD Copy to: ? Final Report SPECIMEN ADEQUACY ? Satisfactory for Evaluation - transformation zone component present GENERAL CATEGORIZATION ? Negative for Intraepithelial Lesion or Malignan cy ?? Last Menstrual Period: 04/2005 Treatment History: Cryotherapy: 1986 Specimen/Source: ??Pap Test, Cervix/Endocervix, ThinPr ep Imaging System with manual evaluation Document reviewed and electronically signed by: ? YULISSA Hawley(ASCP) ? Report ??Date: 09/29/2013 16:08 HPV with Pap Test ? Date Ordered: ? 09/29/2013 ? Status: ?? Signed Out ?Date Complete: ? 10/01/2013 ? By: ??S ystem Interface ? Date Reported: ? 10/01/2013 ? Interpretation RESULT: Negative for HPV. No E6 or E7 mRNA is detected from HPV types 16,18,31,3 3,35, 39,45,51,52,56,58,59,66, and 68 by hoop punch and coiler operator media carli amplification. Comments Document reviewed and electronically signed by: ? System Interface ? Report date: 10/01/2013 By the signature above, the attending physician certif ies that he/she has personally conducted a gross and/or microscopic examin ation of the described specimens and rendered or confirmed the above diagnosi s. End of Report Specimen Performing Organization Address City/State/ZIP Code Phon e Number [facility] [address] [place] [id number] [facility] [address] [place] [address] documented in this encounter Visit Diagnoses Not on filedocumented in this encounter Care Teams Bricklayer Supervisor Relationship Specialty Start Date End Date Unknown, Provider, PCP - General 12/30/09 documented as of this encounter
--- OUTSIDE RECORDS SUMMARY | 2022-08-31 00:51 | XMS_ITS | Encounter Summary ---
:1955 Author Organization [facility] Address [address] [place] [address] Care Team Providers Name Role Phone Unknown, Provider Primary Care Provider Encounter Details Date Type Department Care Team Description 04/16/2016 Results Only [facility]- Ruddy Chisholm MD [phone] [place] [address] [place], [place] [id number] (Wo rk) Social History Tobacco Use Types Packs/Day Years Used Date Never Assessed Sex Assigned at Date Recorded Not on file documented as of this encounter Plan of Treatment Not on filedocumented as of this encounter Procedures Procedure Name Priority Date/Time Associated Diagnosis Comme [facility] SURGICAL PATHOLOGY Routine 04/16/2016 20:43 Resul ts for this EDT procedure are i n the results section. documented in this encounter Results SURGICAL PATHOLOGY (04/16/2016 20:43 EDT) Pathology Report: SURGICAL PATHOLOGY REPORT [facility] Reports generated via electronic interface contain cal ginal data; LABORATORY however they are lacking the format of the original re port. SERVICES Caution should be taken when reading/interpreting unfo rmatted reports. Name: ? BALBIR PADRON ? Accession #: ? [id number] ? : ? 1955 (Age: 61 ) ??F ? Collect Date: ? 04/16/2016 ? Location: ? [facility] ? Receive Date: ? 6 ? Provider: RUDDY ROSARIO MD Copy to: ? Final Pathologic Diagnosis: NASAL CAVITY, SEPTAL CARTIL AGE AND BONE, INFERIOR TURBINATES, LEFT, EXCISION: - ??Chronic rhinitis. Document reviewed and electronically signed by: HEYDI LEI MD Report ??Date: 04/18/2016 15:41 By the signature above, the attending physician certif ies that he/she has personally conducted a gross and/or microscopic examin ation of the described specimens and rendered or confirmed the above diagnosi s. Specimen(s) Received: Septal cartilage and bones, left inferior turbinates Clinical History: DNS; inf turbinate hypertrop hy; clinical diagnosis code: ??J34.2, J34.3, J34.89 Gross Description: ? Received in formalin labelled with proper patient identification (initials D, L) and septal cartilage and bone, left inferior tu rbinates are multiple dong-white portions of cartilage and bone (2.0 x 2.0 x 0.3 cm in aggregate). There are four portions of pink-mobley muco sa (ranging from 0.6 x 0.3 x 0.2 cm to 1.5 x 0.6 x 0.3 cm). Diesel Engine Fitter sections are submi tted with the mucosa submitted as 1 and cartilaginous material as 2. Viji Velázquez 04/17/2016 8:21 AM End of Report Specimen Performing Organization Address City/State/ZIP Code Phon e Number [facility] [address] [place] [address] SERVICES documented in this encounter Visit Diagnoses Not on filedocumented in this encounter Care Teams Design Sales Consultant Relationship Specialty Start Date End Date Unknown, Provider, PCP - General 12/30/09 documented as of this encounter
--- OUTSIDE RECORDS SUMMARY | 2022-08-31 00:51 | XMS_ITS | Encounter Summary ---
:1955 Author Organization [facility] Address [address] [place] [address] Care Team Providers Name Role Phone Unknown, Provider Primary Care Provider Encounter Details Date Type Department Care Team Description 06/22/2022 Lab Requisition [facility] Outr Resulting Lab, Pathology & Laboratory Provider [facility] [address] [place] [address] Social History Tobacco Use Types Packs/Day Years Used Date Never Assessed Sex Assigned at Date Recorded Not on file documented as of this encounter Plan of Treatment Not on filedocumented as of this encounter Procedures Procedure Name Priority Date/Time Associated Diagnosis Comme nts HEPATITIS C AB W Routine 06/21/2022 15:40 Results for this REFLEX TO HCV RNA EDT procedure are in BY PCR the results section. documented in this encounter Results HEPATITIS C AB W REFLEX TO HCV RNA BY PCR (06/21/2022 15:40 EDT) Pathologist Sig nature Hep C Antibody Negative Negative [facility] Specimen Blood - Venous blood (substance) Performing Organization Address City/State/ZIP Code Phon e Number [facility] [address] [place] [address] SERVICES documented in this encounter Visit Diagnoses Not on filedocumented in this encounter Care Teams Digital Commentator Relationship Specialty Start Date End Date Unknown, Provider, PCP - General 12/30/09 documented as of this encounter
--- OUTSIDE RECORDS SUMMARY | 2022-08-31 00:51 | XMS_ITS | Encounter Summary ---
:[address] [facility] Address [address] [place] [address] Care Team Providers Name Role Phone Unknown, Provider Primary Care Provider Encounter Details Date Type Department Care Team Description 10/02/2007 Results Only [facility] - Delmis Martinez MD [address] [place] [address] [place] [address] [phone] Social History Tobacco Use Types Packs/Day Years Used Date Never Assessed Sex Assigned at Date Recorded Not on file documented as of this encounter Plan of Treatment Not on filedocumented as of this encounter Procedures Procedure Name Priority Date/Time Associated Diagnosis Comme nts CYTOPATHOLOGY Routine 10/02/2007 0:00 EST Results for this procedure are i n the results section . documented in this encounter Results CYTOPATHOLOGY (10/02/2007 0:00 EST) Pathology Report: CYTOPATHOLOGY REPORT [facility] Reports generated via electronic interface contain cal ginal data; however they are lacking the format of the original re port. Caution should be taken when reading/interpreting unfo rmatted reports. Name: ? CLARENCE PADRON ? Accession #: ? [id number] : ? 1955 (Age: 52) ??F ?Collect Date: ? 12/0 03/2007 Location: ? [facility] ? Receive Date : ? 10/03/2007 Provider: ?DELMIS RUDD MD Copy to: ? Specimen/Source: ? ThinPrep Pap Test, Cervix/Endocervix, processed on [employer] ThinPrep Imaging System, with manual evaluation Last Menstrual Period: ? Menstrual/ Status: ? Post Menopausal Other: ? HPVA - HPV testing requested if ASC-US on the current ThinPrep Pap test. ? SPECIMEN ADEQUACY ? Satisfactory for Evaluation - transformation zone component present GENERAL CATEGORIZATION ? Negative for Intraepithelial Lesion or Malignan cy ? Document reviewed and electronically signed by: ? YULISSA Webster(ASCP) ? Report Date: ??10/07/2007 13:35 End of Report Specimen Performing Organization Address City/State/ZIP Code Phon e Number [facility] [address] [place] [address] SERVICES [facility] [address] [place] [address] documented in this encounter Visit Diagnoses Not on filedocumented in this encounter Care Teams Cloth Tester Quality Relationship Specialty Start Date End Date Unknown, Provider, PCP - General 12/30/09 documented as of this encounter
--- OUTSIDE RECORDS SUMMARY | 2022-08-31 00:51 | XMS_ITS | Encounter Summary ---
:1955 Author Organization [facility] Address [address] [place] [address] Care Team Providers Name Role Phone Unknown, Provider Primary Care Provider Encounter Details Date Type Department Care Team Description 06/22/2022 Lab Requisition [facility] Outr Resulting Lab, Pathology & Laboratory Provider [facility] [address] [place] [address] Social History Tobacco Use Types Packs/Day Years Used Date Never Assessed Sex Assigned at Date Recorded Not on file documented as of this encounter Plan of Treatment Not on filedocumented as of this encounter Procedures Procedure Name Priority Date/Time Associated Comments Diagnosis HIV 1/2 ANTIGEN AND Routine 06/21/2022 15:40 Resu lts for this ANTIBODY, 4TH EDT procedure are in GENERATION the results section. documented in this encounter Results HIV 1/2 ANTIGEN AND ANTIBODY, 4TH GENERATION (06/21/2022 15:40 EDT) HIV 1 and 2 NegativeComment: If Negative [facility] Antibody/p24 acute HIV-1 LABORATORY Antigen, 4th infection is SERVICES Generation suspected in a high risk patient, submit plasma specimen for HIV-1 RNA quantitation test. Specimen Blood - Venous blood (substance) Narrative [facility] SERVICES - 06/23/2022 9:18 EDT Fourth Generation assay performed on the Siemens [employer] XPT. Performing Organization Address City/State/ZIP Code Phon e Number [facility] [address] [place] [address] SERVICES documented in this encounter Visit Diagnoses Not on filedocumented in this encounter Care Teams Fresh Foods Cake Decorator Relationship Specialty Start Date End Date Unknown, Provider, PCP - General 12/30/09 documented as of this encounter
--- OUTSIDE RECORDS SUMMARY | 2022-08-31 00:51 | XMS_ITS | Encounter Summary ---
:1955 Author Organization [facility] Address [address] [place] [address] Care Team Providers Name Role Phone Unknown, Provider MD Primary Care Provider Encounter Details Date Type Department Care Team Description 09/13/2021 Lab Requisition [facility] Outr Resulting Lab, Pathology & Laboratory Provider [facility] [address] [place], [place] [id number] Social History Tobacco Use Types Packs/Day Years Used Date Never Assessed Sex Assigned at Date Recorded Not on file documented as of this encounter Plan of Treatment Not on filedocumented as of this encounter Procedures Procedure Name Priority Date/Time Associated Diagnosis Comme nts COVID-19 TEST [facility] Today 09/12/2021 11:08 LAB PCR EST COVID-19 TESTING Routine 09/12/2021 11:08 Results for this EST procedure are i n the results section. documented in this encounter Results COVID-19 TEST [facility] LAB PCR (09/12/2021 11:08 EST) Specimen Swab Performing Organization Address City/State/ZIP Code Phon e Number [facility] [address] [place] [address] SERVICES COVID-19 TESTING (09/12/2021 11:08 EST) COVID-19 rt-PCR Negative Negative [facility] Result Comment: [facility] This test has not been FDA c leared or approved. This test has been authorized by FDA under an EUA for use by authorized laboratories. This test has been authorized only for detection of nucleic acid fro SERVICES m 2019-nCoV, not for any oth er viruses or pathogens. This test is only authorized for the duration of the declaration that circumstances exist justifying the authorization of emergency use of in vitro d iagnostic tests for detectio n and/or diagnosis of 2019-nCoV under section 564(b)(1) of Act, 21 U.S.C ?? 360bbb-3(b) (1), unless the authorization is terminated or revoked sooner. Negative results do not prec lude 2019-nCoV infection and should not be used as the sole basis for treatment or other patient management decisions. Negative results must be combined with clinical observa tions, patient history, and epidemiological informatio n. Testing was performed using the joann SARS-CoV-2 assay ([employer] on the Joann 6800 System Performing Lab Joann 6800 [facility] Lab [facility] SERVICES Specimen Swab Performing Organization Address City/State/ZIP Code Phon e Number [facility] [address] [place] [address] SERVICES documented in this encounter Visit Diagnoses Not on filedocumented in this encounter Care Teams Home Designer Relationship Specialty Start Date End Date Unknown, Provider, PCP - General 12/30/09 documented as of this encounter
--- OUTSIDE RECORDS SUMMARY | 2022-08-31 00:51 | XMS_ITS | Encounter Summary ---
:1955 Author Organization [facility] Address [address] [place] [address] Care Team Providers Name Role Phone Unknown, Provider MD Primary Care Provider Encounter Details Date Type Department Care Team Description 09/10/2021 Lab Requisition [facility] Outr Resulting Lab, Pathology & Laboratory Provider [facility] [address] [place] [address] Social History Tobacco Use Types Packs/Day Years Used Date Never Assessed Sex Assigned at Date Recorded Not on file documented as of this encounter Plan of Treatment Not on filedocumented as of this encounter Procedures Procedure Name Priority Date/Time Associated Diagnosis Comme nts COVID-19 TEST [facility] Today 09/09/2021 9:33 EST LAB PCR COVID-19 TESTING Routine 09/09/2021 9:33 EST Resu lts for this procedure are i n the results section. documented in this encounter Results COVID-19 TEST [facility] LAB PCR (09/09/2021 9:33 EST) Specimen Swab Performing Organization Address City/State/ZIP Code Phon e Number [facility] [address] [place] [address] SERVICES COVID-19 TESTING (09/09/2021 9:33 EST) COVID-19 rt-PCR Negative Negative [facility] Result Comment: [facility]ENTER [facility] This test has not been FDA c leared or approved. This test has been authorized by FDA under an EUA for use by authorized laboratories. This test has been authorized only for detection of nucleic acid fro SERVICES m 2018-nCoV, not for any oth er viruses or [...] was performed using the joann SARS-CoV-2 assay ([employer] on the Joann 6800 System Performing Lab Joann 6800 [facility] Lab [facility] SERVICES Specimen Swab Performing Organization Address City/State/ZIP Code Phon e Number [facility] [address] [place] [address] SERVICES documented in this encounter Visit Diagnoses Not on filedocumented in this encounter Care Teams Armament Aircraft Mechanic Relationship Specialty Start Date End Date Unknown, Provider, PCP - General 12/30/09 documented as of this encounter
--- OUTSIDE RECORDS SUMMARY | 2022-08-31 00:51 | XMS_ITS | Clinical Summary ---
:1955 Author Organization [facility] Address [address] [place] [address] Care Team Providers Name Role Phone Unknown, Provider MD Primary Care Provider Encounters Date Type Specialty Care Team Description 06/22/2022 Lab Requisition [facility] Outr Resulting Lab , Provider 06/22/2022 Lab Requisition Clinical Laboratory Outr Resulting Lab , Provider 06/22/2022 Lab Requisition Clinical Laboratory Outr Resulting Lab , Provider from Last 3 Months Social History Tobacco Use Types Packs/Day Years Used Date Never Assessed Sex Assigned at Date Recorded Not on file Plan of Treatment Health Maintenance Due Date Last Done Comments COVID-19 Vaccine (#1) 1955 Fall Risk Screening 2021 Hepatitis C Screen Completed 06/21/2022 Procedures Procedure Name Priority Date/Time Associated Comments Diagnosis URINE Routine 06/21/2022 15:45 Results for this [id number] EDT procedu re are in E RATIO (ACR) the results section. HEPATITIS C AB W Routine 06/21/2022 15:40 Results for this REFLEX TO HCV RNA BY EDT procedu re are in PCR the results section. HIV 1/2 ANTIGEN AND Routine 06/21/2022 15:40 Resu lts for this ANTIBODY, 4TH EDT procedure are in GENERATION the results section. from Last 3 Months Results URINE [id number] RATIO (ACR) (06/21/2022 15:45 EDT) Albumin, Urine <0.6 See Note [facility] Comment: mg/dL [facility] NOTE: SERVICES Reference range not established Creatinine, Urine 9.8 See Note [facility] Comment: mg/dL [facility] NOTE: SERVICES Reference range not established Lab Urine Albumin [facility] to Creatinine Comment: [facility] Ratio Unable to calculate due to albumin result <0.6. SERVICES Urine Albumin/Creatinine Ratio: Normal: <30 ug/mg Creatinine Moderately increased albuminuria: 30-300 ug/mg Creatin ine [place] increased albuminuria: >300 ug/mg Creatinine Specimen Urine - Urine specimen collection, clean catch (procedure) Performing Organization Address City/State/ZIP Code Phon e Number [facility] [address] [place] [address] SERVICES HEPATITIS C AB W REFLEX TO HCV RNA BY PCR (06/21/2022 15:40 EDT) Pathologist Sig nature Hep C Antibody Negative Negative [facility] SERVICES Specimen Blood - Venous blood (substance) Performing Organization Address [facility]/ZIP Code Phon e Number [facility] [address] [place] [address] SERVICES HIV 1/2 ANTIGEN AND ANTIBODY, 4TH GENERATION (06/21/2022 15:40 EDT) HIV 1 and 2 NegativeComment: If Negative [facility] Antibody/p24 acute HIV-1 LABORATORY Antigen, 4th infection is SERVICES Generation suspected in a high risk patient, submit plasma specimen for HIV-1 RNA quantitation test. Specimen Blood - Venous blood (substance) Narrative [facility] SERVICES - 06/23/2022 9:18 EDT Fourth Generation assay performed on the Siemens Centaur XPT. Performing Organization Address City/[facility]/ZIP Code Phon e Number [facility] [address] [place] [address] SERVICES from Last 3 Months Care Teams Fruit Buyer Relationship Specialty Start Date End Date Unknown, Provider, PCP - General 12/30/09
--- OUTSIDE RECORDS SUMMARY | 2022-08-31 00:51 | XMS_ITS | Encounter Summary ---
:[address] [facility] Address [address] [place] [address] Care Team Providers Name Role Phone Unavailable Primary Care Provider Unavailable Encounter Details Date Type Department Care Team Description 12/28/2009 Results Only [facility] Bryan Ovalle MD Laboratory Services - [address] [employer] [place] [address] [place] [address] [place] [address] [phone] Social History Tobacco Use Types Packs/Day Years Used Date Never Assessed Sex Assigned at Date Recorded Not on file documented as of this encounter Plan of Treatment Not on filedocumented as of this encounter Procedures Procedure Name Priority Date/Time Associated Diagnosis Comme [facility] SURGICAL PATHOLOGY Routine 12/28/2009 0:00 EST Re sults for this procedure are i n the results section. documented in this encounter Results SURGICAL PATHOLOGY (12/28/2009 0:00 EST) Pathology Report: SURGICAL PATHOLOGY REPORT ? [facility] Reports generated via KAYAK interface contain original data; ? LAB however they are lacking the format of the original report. ? Caution should be taken when reading/interpreting unformatted reports. ? Name: ? DRINKWATER, BALBIR A ? Accession #: ? [id number] ? : ? 1955 (Age: 54) ??F ? Collec t Date: ? 12/28/2009 ? Location: ? [facility] ? R eceive Date: ? 12/29/2009 ? Provider: DARREN OVALLE MD ? Copy to: CORBY RUDD MD ? Final Pathologic Diagnosis: ? Gallbladder, cholecys tectomy: ? 1. ?Mild chroni c cholecystitis. ? 2. ? Cholelithiasis. ? 3. ? Resection margin vi able. ? Document reviewed and electr onically signed by: ? Renan Barcenas MD ? Report ??Date: 01/02/2010 15 :09 ? By the signature above, the attending physician certifies that he/she has ? personally conducted a gross and/or microscopic examination of the described ? specimens and rendered or co nfirmed the above diagnosis. ? Specimen(s) Received: ? G. B. ? Clinical History: ? Biliary colic ? Gross Description: ? Received in formalin labelled Drinkwater, Esthela and gallbladder is an ?? intact gallbladder measuring 8.0 x 3.5 x 2.7 cm with an attached cystic duct ? measuring 0.5 cm in length a nd 0.3 cm in diameter. ??The cystic duct lumen is ? patent. ??The margin of the cystic duct is inked. ??The serosa of the gallbladder is mobley to purple and smooth and glistening. ??Upon the opening, there were ? several dozen yellow choleli ths ranging from 0.6 cm to 0.8 cm mixed with thick ?? light green mucous. ??The mu cosa is pink-mobley and trabecular. ??The mucosa is with no masses. ??The wall thickn ess is 0.2 cm. ??A lymph node is not present. ??The en face cystic duct margin and two segments of gallbladder were placed in a single cassette. ??/[facility] ? End of Report ? Specimen Performing Organization Address City/State/ZIP Code Phon e Number [facility] [address] [place] [address] SERVICES [facility] [address] [place] [address] documented in this encounter Visit Diagnoses Not on filedocumented in this encounter
== END ==
PROVIDERS: Visit Provider Nurse Practitioner Family
DX: Z13.820 Encounter for screening for osteoporosis (principal); M85.89 Other specified disorders of bone density and structure, multiple sites
CPT/HCPCS: 77080

== ENCOUNTER 2023-04-29 01:19 | Outpatient (CLI) | payer MEDICARE, BC, SELFPAY ==
--- NOTE | 2023-04-29 | DI.US_ITS ---
Exam(s) US PELVIS TRANSVAGINAL EXAM: US PELVIS TRANSVAGINAL CLINICAL HISTORY: POSTMENOPAUSAL BLEEDING, N95.0 TECHNIQUE: Transabdominal and transvaginal imaging was performed using standard protocol. COMPARISON: CT UPPER ABD W/WO CONTRAST(P) from 12/23/2009 US ABDOMEN ULTRASOUND from 12/23/2009 FINDINGS: UTERUS: Retroflexed. 5.3 x 2.2 x 3.2 cm. Endometrium: 2 mm Myometrium: Calcification noted in the myometrium. This could represent a calcified fibroid. Cervix: Unremarkable. OVARIES: Right: Cyst or mass: 1.4 centimeter cyst. No follow-up recommended. Left: Cyst or mass: None. DOPPLER: Color: Symmetric and uniform flow to both ovaries. No hyperemia. CUL-DE-SAC: Free fluid: None. IMPRESSION: 1. Normal size uterus with endometrial stripe within normal limits. 2. 1.4 centimeters simple cyst. No follow-up recommended. DATA REPOSITORY:
== END 2023-04-29 01:39 ==
PROVIDERS: Visit Provider Nurse Practitioner Family
DX: N95.0 Postmenopausal bleeding (principal); N83.201 Unspecified ovarian cyst, right side
CPT/HCPCS: 76830; 76856

== ENCOUNTER 2024-07-03 01:11 | Outpatient (CLI) | payer MEDICARE, BC, SELFPAY ==
--- OUTSIDE RECORDS SUMMARY | 2024-07-03 01:43 | XMS_ITS | Encounter Summary ---
Author Organization [facility] Address [address] [place] [address] Care Team Providers Care Installations Inspector Name Role Phone Unknown, Provider Primary Care Provider [phone] Encounter Details Date Type Department Care Team (Late st Contact Info) Description 09/13/2021 Lab Requisition [facility] Pathology & Laboratory Medicine - [address] [address] Outr Resulting Lab, Provider Social History Tobacco Use Types Packs/Day Years Used Date Smoking Tobacco: Never Assessed Sex and Gender Information Value Date Recorded Sex Assigned at Not on file Gender Identity Not on file Sexual Orientation Not on file documented as of this encounter Plan of Treatment Not on file documented as of this encounter Procedures Procedure Name Priority Date/Time Associated Diagnosis Comments ZZCOVID-19 TEST [facility] PCR Today 09/12/2021 11:08 EST COVID-19 TESTING Routine 09/12/2021 11:0 8 EST documented in this encounter Results * COVID-19 TEST [facility] PCR (09/12/2021 11:08 EST) Swab 09/12/2021 11:0 8 EST 09/13/2021 16:50 EST Provider Outr Resulting Lab MICROBIOLOGY - GENERAL ORDERABLES [facility] [address] [place] [address] * COVID-19 TESTING (09/12/2021 11:08 EST) COVID-19 rt-PCR Result Negative Negative 09/14/2021 11:52 EST [facility] Comment: This test has not been FDA cleared or approved. This test has been authorized by FDA under an EUA for use by authorized laboratories. This test has been authorized only for detection of nucleic acid from 2019-nCoV, not for any other viruses or pathogens. This test is only authorized for the duration of the declaration that circumstances exist justifying the authorization of emergency use of in vitro diagnostic tests for detection and/or diagnosis of 2019-nCoV under section 564(b)(1) of Act, 21 U.S.C ?? 360bbb-3(b) (1), unless the authorization is terminated or revoked sooner. Negative results do not preclude 2019-nCoV infection and should not be used as the sole basis for treatment or other patient management decisions. Negative results must be combined with clinical observations, patient history, and epidemiological information. Testing was performed using the joann SARS-CoV-2 assay ([employer] on the Joann 6800 System Performing Lab Joann 6800 [facility] 09/14/2021 11:52 EST [facility] Swab 09/12/2021 11:0 8 EST 09/13/2021 16:50 EST Provider Outr Resulting Lab MICROBIOLOGY - GENERAL ORDERABLES [facility] [address] [place] [address] documented in this encounter Visit Diagnoses Not on filedocumented in this encounter Care Teams Installations Inspector Relationship Specialty Start Date End Date Unknown, Provider, PCP - General 12/30/09 documented as of this encounter
--- OUTSIDE RECORDS SUMMARY | 2024-07-03 01:43 | XMS_ITS | Encounter Summary ---
Author Organization [facility] Address [address] [place] [address] Care Team Providers Care Failure Analysis Engineer Name Role Phone Unknown, Provider Primary Care Provider [phone] Encounter Details Date Type Department Care Team (Late st Contact Info) Description 06/22/2022 Lab Requisition [facility] Pathology & Laboratory Medicine - [address] [address] Outr Resulting Lab, Provider Social History Tobacco [...] Procedure Name Priority Date/Time Associated Diagnosis Comments URINE NJFOPOQ-ZO-AIVTTPVM NE RATIO (ACR) Routine 06/21/2022 15:45 EDT documented in this encounter Results * URINE NSUGBWJ-VY-WLBYZXSNHK RATIO (ACR) (06/21/2022 15:45 EDT) Albumin, Urine <0.6 See Note mg/dL 06/22/2022 18:30 EDT [facility] Comment: NOTE: Reference range not established Creatinine, Urine 9.8 See Note mg/dL 06/22/2022 18:30 EDT [facility] Comment: NOTE: Reference range not established Lab Urine Albumin to Creatinine Ratio 06/22/2022 18:30 EDT [facility] Comment: Unable to calculate due to albumin result <0.6. Urine Albumin/Creatinine Ratio: Normal: <30 ug/mg Creatinine Moderately increased albuminuria: 30-300 ug/mg Creatinine Severley increased albuminuria: >300 ug/mg Creatinine Urine URINE SPECIMEN COLLECTION, CLEAN CATCH / Unknown 06/21/2022 15:45 EDT 06/22/2022 17:32 EDT Provider Outr Resulting Lab CHEMISTRY & BLOOD GAS ORDERABLES [facility] [address] [id number] documented in this encounter Visit Diagnoses Not on filedocumented in this encounter Care Teams Failure Analysis Engineer Relationship Specialty Start Date End Date Unknown, Provider, PCP - General 12/30/09 documented as of this encounter
--- OUTSIDE RECORDS SUMMARY | 2024-07-03 01:43 | XMS_ITS | Encounter Summary ---
[place] [address] Care Team Providers Care Fashion Coordinator Name Role Phone Varsha Wolfe APRN Primary Care Provider Encounter Details Date Type Department Care Team (Latest Contact Info) Description 05/22/2024 Travel Social History Tobacco Use Types Packs/Day Years Used Date Smoking Tobacco: Never Smokeless Tobacco: Never Alcohol Use Standard Drinks/Week Comments Yes 4 (1 standard drink = 0.6 oz pur e alcohol) a week 4 glasses. Sex and Gender Information Value Date Recorded Sex Assigned at Not on file Gender Identity Not on file Sexual Orientation Not on file documented as of this encounter Plan of Treatment Not on file documented as of this encounter Visit Diagnoses Not on filedocumented in this encounter Care Teams Fashion Coordinator Relationship Specialty Start Date End Date Varsha Wolfe APRN [address] [place], [place] [address] PCP - General Geriatric Medicine 05/22/24 documented as of this encounter
--- OUTSIDE RECORDS SUMMARY | 2024-07-03 01:43 | XMS_ITS | Encounter Summary ---
Author Organization [facility] [place] [address] Care Team Providers Care Linen Room Custodian Name Role Phone Delmis Dueñas MD Primary Care Provider [phone] Reason for Visit * Reason Comments Aftercare Of Tjr Right FREDO 08/09/14 Encounter Details Date Type Department Care Team (Late st Contact Info) Description 08/30/2016 4:00 PM EDT Office [place] [address] Rogelio Maldonado PA [facility] [place] [address] S/P hip replacement, left Social History Tobacco Use Types Packs/Day Years [...] EDT documented in this encounter Progress Notes * Rogelio Maldonado PA - 08/30/2016 4:00 PM EDT Case Date: 08/09/2014 Procedure Performed: right Total Hip Arthroplasty Surgeon: Neri Mo MD Implants Used: Femoral Stem: DePuy [place], Size 10 KA Femoral Head: Biolox Delta ceramic, Size 32+5 Acetabulum: DePuy [place] Sector II Gription, Size 48 Adjuvant screw [...] pleased with the results of the operation. [facility] Surgical Followup Visit 08/30/2016 PROMIS-10 General Health [...] to hospital since recent ortho surgery Yes [facility] Date of admission 04/16/2016 Discharge date [...] may be related to the increased offset of the FREDO. I encouraged her to continue to work on soft tissue mobilization as this seems to have helped some. We'll see her again in 3 years or sooner as needed. Signed: TRE PURDY 08/30/2016 documented in this encounter Plan of Treatment Not on file documented as of this encounter Visit Diagnoses Diagnosis S/P hip replacement, left documented in this encounter Care Teams Linen Room Custodian Relationship Specialty Start Date End Date Delmis Dueñas MD [address] [address] PCP - General 09/19/10 08/24/18 documented as of this encounter
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
--- OUTSIDE RECORDS SUMMARY | 2024-07-03 01:43 | XMS_ITS | Encounter Summary ---
Author Organization [facility] Address [facility] [place] [address] Care Team Providers Care Power House Control Room Operator Name Role Phone Tammy Jewell APRN Primary Care Provider [phone] Reason for Visit * Reason Onset Date Comments Appointment 08/31/2019 Encounter Details Date Type Department Care Team (Late st Contact Info) Description 08/31/2019 Telephone [place] [id number] Mary, TRE Schmitz [facility] [place] [address] Appointment Social History Tobacco Use Types Packs/Day Years [...] documented as of this encounter Miscellaneous Notes * Telephone Encounter - Yudi Cárdenas Selam - 08/31/2019 2:30 PM EST Esthela called and at this time she doesn't want to follow up here for her care regarding the right hip. She stated she has tried essential oil and is feeling better. She was not happy with her care the last office visit here. XR 08/09/14 RIGHT ANT FREDO documented in this encounter Plan of Treatment Not on file documented as of this encounter Visit Diagnoses Not on filedocumented in this encounter Care Teams Power House Control Room Operator Relationship Specialty Start Date End Date Tammy Jewell APRN [address] [place] [address] PCP - General Family Medicine 08/25/18 05/21/24 documented as of this encounter
--- OUTSIDE RECORDS SUMMARY | 2024-07-03 01:43 | XMS_ITS | Encounter Summary ---
[place] [address] Care Team Providers Care Bumper And Painter Name Role Phone Tammy Jewell APRN Primary Care Provider [phone] Reason for Referral * - Closed Specialty Diagnoses / Procedures Referred By Jourdan grider Referred To Contact Diagnoses Encounter for screening mammogram for breast cancer Procedures Mammo Screening Cad and Reese Bilateral Levon Calhoun PA [address] [place] [address] [place] [address] Referral ID Status Reason Start Date Expiration Date Visits Re quested Visits Authorized [id number] Closed 03/17/2021 03/17/2022 1 1 Reason for Visit * - Closed Specialty Diagnoses / Procedures Referred By Jourdan grider Referred To Contact Diagnoses Encounter for screening mammogram for breast cancer Procedures Mammo Screening Cad and Reese Bilateral Levon Calhoun PA [address] [place] [address] [facility] [place] [address] Referral ID Status Reason Start Date Expiration Date Visits Re quested Visits Authorized [id number] Closed 03/17/2021 03/17/2022 1 1 Encounter Details Date Type Department Care Team (Latest Contact Info) Description 04/24/2021 7:24 AM EDT - 04/24/2021 11:59 PM EDT Hospital Encounter Mammography/[place] [address] Levon Calhoun PA [address] [place] [address] Encounter for screening mammogram for breast cancer Discharge Disposition: Home Social History Tobacco Use Types Packs/Day Years [...] Sig Dispensed Refills Start Date End Date lyqzily-sifqjmoenhkxr-pei feine (EXCEDRIN MIGRAINE) 250-250-65 mg Tablet Take 1 tablet by mouth every 6 hours as needed for Pain. diphenhydrAMINE (BENADRYL ALLERGY) 25 mg Tablet Take 25 mg by mouth as needed for Itching. Chlorpheniramine-Acetamin ophen (CORICIDIN HBP COLD & FLU) 2-325 mg Tablet Take 2 tablets by mouth as needed. Cinnamon Bark 500 mg Capsule Take by mouth daily. potassium chloride (K-DUR/KLOR-CON) 20 mEq Tab Sust.Rel. Particle/Crystal Take 20 mEq by mouth 2 times daily. multivitamin (THERAGRAN) tablet Take 1 tablet by mouth daily. hydrochlorothiazide (HYDRODIURIL) 25 mg tablet 25mg, PO, QAM 07/13/2004 polyethylene glycol (MIRALAX) 17 gram/dose powder 17 grams PO BID, PO, BID,PRN 07/13/2004 documented as of this encounter Plan of Treatment Not on file documented as of this encounter Procedures Procedure Name Priority Date/Time Associated Diagnosis Comments MAMMO SCREENING CAD AND REESE BILATERAL Routine 04/24/2021 7:42 AM EDT Encounter for screening mammogram for breast cancer documented in this encounter Results * Mammo Screening Cad and Reese Bilateral (04/24/2021 7:42 AM EDT) Anatomical Region Laterality Modality Breast Bilateral Mammography Narrative 04/24/2021 8:45 AM EDT BILATERAL MAMMOGRAPHY REASON FOR EXAM: Screening TECHNIQUE: CC and MLO views were obtained of each breast using standard 2-D mammography as well as 3-D tomosynthesis. Computer aided detection was used. This is compared with prior images. FINDINGS: ??The breasts are almost entirely fatty. There are no suspicious microcalcifications, masses, or areas of distortion. The pattern is stable. CONCLUSION: No mammographic evidence of malignancy. RECOMMENDATION: Regular screening mammograms starting between age 40 and 50 reduces the risk of from breast cancer. All screening tests have both risks and benefits. These risks and benefits should be assessed for each individual patient through discussion with their provider to determine their preferred breast cancer screening schedule. Women should report any breast changes to a health care provider right away. Some women, because of their family history, a genetic tendency, or other factors, should be screened with annual breast MRI as well as with mammograms. (The number of women who fall into this category is very small). Patients and health care providers should discuss each patient? s history to decide if earlier screening and/or breast MRI are appropriate. Screening should continue as long as a woman is in good health and is expected to live 10 years or longer. Screening mammography may not detect 10-15% of breast cancers. A result letter has been sent to this patient by [facility]. BIRADS CATEGORY 1: NEGATIVE Electronically signed by: CORDELL MONTILLA MD Levon TOL[facility]O [facility] MAMMO ORDERABLES documented in this encounter Visit Diagnoses Diagnosis Encounter for screening mammogram for breast cancer documented in this encounter Care Teams Bumper And Painter Relationship Specialty Start Date End Date Tammy Jewell APRN [address] [place] [address] PCP - General Family Medicine 08/25/18 05/21/24 documented as of this encounter
--- OUTSIDE RECORDS SUMMARY | 2024-07-03 01:43 | XMS_ITS | Encounter Summary ---
Author Organization [facility] Address [address] [place] [address] Care Team Providers Care Coal Trimmer Name Role Phone Unknown, Provider Primary Care Provider [phone] Encounter Details Date Type Department Care Team (Late st Contact Info) Description 10/02/2007 Results Only [facility] - [facility] conversion [address] [place] [address] Delmis Rudd MD [address] [place], [place] [id number] Social History Tobacco Use Types Packs/Day Years Used Date Smoking Tobacco: Never Assessed Sex and Gender Information Value Date Recorded Sex Assigned at Not on file Gender Identity Not on file Sexual Orientation Not on file documented as of this encounter Plan of Treatment Not on file documented as of this encounter Procedures Procedure Name Priority Date/Time Associated Diagnosis Comments CYTOPATHOLOGY Routine 10/02/2007 0:00 EST documented in this encounter Results * CYTOPATHOLOGY (10/02/2007 0:00 EST) Pathology Report: CYTOPATHOLOGY REPORT Reports generated via electronic interface contain original data; however they are lacking the format of the original report. Caution should be taken when reading/interpreti ng unformatted reports. Name: ? CLARENCE PADRON ? Accession #: ? [id number] : ? 1955 (Age: 52) ??F ?Collect Date: ? 10/02/2007 Location: ? [facility] ? Receive Date: ? 10/03/2007 Provider: ?DELMIS RUDD MD Copy to: ? Specimen/Source: ?ThinPrep Pap Test, Cervix/Endocervix, processed on [employer] ThinPrep Imaging System, with manual evaluation Last Menstrual Period: ? Menstrual/Pregnanc y Status: ? Post Menopausal Other: ? HPVA - HPV testing requested if ASC-US on the current ThinPrep Pap test. ? SPECIMEN ADEQUACY ? Satisfactory for Evaluation - transformation zone component present GENERAL CATEGORIZATION ? Negative for Intraepithelial Lesion or Malignancy ? Document reviewed and electronically signed by: ? YULISSA Webster(ASCP) ? Report Date: ??10/07/2007 13:35 End of Report JESSICA MARIN 10/02/2007 10/03/2007 Delmis Rudd MD PATHOLOGY ORDERABLES Performing Organization Address City/State/[facility] Co de Phone Number JESSICA MARIN [address] [place] [address] documented in this encounter Visit Diagnoses Not on filedocumented in this encounter Care Teams Coal Trimmer Relationship Specialty Start Date End Date Unknown, Provider, PCP - General 12/30/09 documented as of this encounter
--- OUTSIDE RECORDS SUMMARY | 2024-07-03 01:43 | XMS_ITS | Encounter Summary ---
Author Organization [facility] Address [address] [place] [address] Care Team Providers Care Permaculture Designer Name Role Phone Unknown, Provider Primary Care Provider Encounter Details Date Type Department Care Team (Late st Contact Info) Description 04/16/2016 Results Only [facility] [phone] Ruddy Shannon MD [address] [place] [address] Social History Tobacco Use Types Packs/Day Years Used Date Smoking Tobacco: Never Assessed Sex and Gender Information Value Date Recorded Sex Assigned at Not on file Gender Identity Not on file Sexual Orientation Not on file documented as of this encounter Plan of Treatment Not on file documented as of this encounter Procedures Procedure Name Priority Date/Time Associated Diagnosis Comments SURGICAL PATHOLOGY Routine 04/16/2016 20 :43 EDT documented in this encounter Results * SURGICAL PATHOLOGY (04/16/2016 20:43 EDT) Pathology Report: SURGICAL PATHOLOGY REPORT Reports generated via electronic interface contain original data; however they are lacking the format of the original report. Caution should be taken when reading/interpret ing unformatted reports. Name: ? CLARENCE PADRON ? Accession #: ? [id number] ? : ? 1955 (Age: 61) ??F ? Collect Date: ? 04/16/2016 ? Location: ? [facility] ? Receive Date: ? 04/16/2016 ? Provider: RUDDY SHANNON MD Copy to: ? Final Pathologic Diagnosis: NASAL CAVITY, SEPTAL CARTILAGE AND BONE, INFERIOR TURBINATES, LEFT, EXCISION: - ??Chronic rhinitis. Document reviewed and electronically signed by: HEYDI LEI MD Report ??Date: 04/18/2016 15:41 By the signature above, the attending physician certifies that he/she has personally conducted a gross and/or microscopic examination of the described specimens and rendered or confirmed the above diagnosis. Specimen(s) Received: Septal cartilage and bones, left inferior turbinates Clinical History: DNS; inf turbinate hypertrophy; clinical diagnosis code: ??J34.2, J34.3, J34.89 Gross Description: ? Received in formalin labelled with proper patient identification (initials D, L) and septal cartilage and bone, left inferior turbinates are multiple dong-white portions of cartilage and bone (2.0 x 2.0 x 0.3 cm in aggregate). There are four portions of pink-mobley mucosa (ranging from 0.6 x 0.3 x 0.2 cm to 1.5 x 0.6 x 0.3 cm). Application Development Intern sections are submitted with the mucosa submitted as 1 and cartilaginous material as 2. Viji Velázquez 04/17/2016 8:21 AM End of Report [facility] 04/16/2016 20:4 3 EDT 04/16/2016 20:43 EDT Ruddy Shannon MD PATHOLOGY ORDERABLES [facility] [address] [place] [address] documented in this encounter Visit Diagnoses Not on filedocumented in this encounter Care Teams Permaculture Designer Relationship Specialty Start Date End Date Unknown, Provider, PCP - General 12/30/09 documented as of this encounter
--- OUTSIDE RECORDS SUMMARY | 2024-07-03 01:43 | XMS_ITS | Encounter Summary ---
Author Organization [facility] Address [address] [place] [address] Care Team Providers Care Postal Sorting Officer Name Role Phone Unavailable Primary Care Provider Unavailabl e Encounter Details Date Type Department Care Team (Late st Contact Info) Description 10/01/2008 Before [facility] Converted Visit (Maple) [facility] - [facility] conversion [address] [place] [address] Delmis Dueñas MD [address] [place], [place] [id number] Social History Tobacco Use Types Packs/Day Years Used Date Smoking Tobacco: Never Assessed Sex and Gender Information Value Date Recorded Sex Assigned at Not on file Gender Identity Not on file Sexual Orientation Not on file documented as of this encounter Plan of Treatment Not on file documented as of this encounter Procedures Procedure Name Priority Date/Time Associated Diagnosis Comments HPV DETECTION, HIGH RISK TYPES Routine 10/01/2008 7:39 EST CYTOPATHOLOGY Routine 10/01/2008 0:00 EST documented in this encounter Results * HUMAN PAPILLOMA VIRUS DNA TEST (10/01/2008 7:39 EST) Specimen Description Cervix, ThinPrep vial [facility] Result Negative for HPV types 16, 18, 31, 33, 35, 39, 45, 51, 52, 56, 58, 59, and 68. [facility] Report Status Final 10/14/2008 [facility] 10/01/2008 7:39 EST 10/07/2008 7:39 EST Delmis Dueñas MD MICROBIOLOGY - GENER AL ORDERABLES [facility] [address] [place] [id number] * CYTOPATHOLOGY (10/01/2008 0:00 EST) Pathology Report: CYTOPATHOLOGY REPORT ? Reports generated via electronic interface contain original data; ? however they are lacking the format of the original report. ? Caution should be taken when reading/interpreti ng unformatted reports. ? Name: ? DWAYNE CLARENCE ? Accession #: ? [id number] ? : ? 1955 (Age: 53) ??F ?Collect Date: ? 10/01/2008 ? Location: ? [facility] ? Receive Date: ? 10/04/2008 ? Provider: ?DELMIS GOLDENAN MD ? Copy to: ? Specimen/Source: ?Pap Test, Cervix/Endocervix, ThinPrep Imaging System ? with manual evaluation ? Last Menstrual Period: ? Menstrual/Pregnanc y Status: ? Post Menopausal ? Previous Gynecologic Pathology: ? Yes: Years ago ? Other: ? HPVDX - HPV testing requested regardless of diagnosis on current ThinPrep Pap ?? test. ? SPECIMEN ADEQUACY ? Satisfactory for Evaluation ? - transformation zone component present ? GENERAL CATEGORIZATION ? Negative for Intraepithelial Lesion or Malignancy ? Document reviewed and electronically signed by: ? Yomaira Agnes, CT(ASCP) ? Report Date: ??10/06/2008 08:53 ? End of Report ? JESSICA MARIN 10/01/2008 10/04/2008 Delmis Dueñas MD PATHOLOGY ORDERABLES Performing Organization Address City/State/[facility] Co de Phone Number JESSICA MARIN [address] [place] [address] documented in this encounter Visit Diagnoses Not on filedocumented in this encounter
--- OUTSIDE RECORDS SUMMARY | 2024-07-03 01:43 | XMS_ITS | Encounter Summary ---
[place] [address] Care Team Providers Care Mexican Food Cook Name Role Phone Tammy Jewell APRN Primary Care Provider [phone] Encounter Details Date Type Department Care Team (Latest Contact Info) Description 05/02/2022 7:36 AM EDT - 05/02/2022 11:59 PM EDT Hospital Encounter Mammography/[place] [phone] Levon Calhoun PA [address] [place], [place] [id number] Encounter for screening mammogram for breast cancer [...] Sig Dispensed Refills Start Date End Date ogtksxq-bribmxbdbluny-spl feine (EXCEDRIN MIGRAINE) 250-250-65 mg Tablet Take [...] MAMMO SCREENING CAD AND REESE BILATERAL Routine 05/02/2022 7:50 AM EDT Encounter for screening mammogram for breast cancer documented in this encounter Results * Mammo Screening Cad and Reese Bilateral (05/02/2022 7:50 AM EDT) Anatomical Region Laterality Modality Breast Bilateral Mammography Narrative 05/02/2022 8:09 AM EDT BILATERAL MAMMOGRAPHY [...] cancer documented in this encounter Care Teams Mexican Food Cook Relationship Specialty Start Date End Date Tammy Jewell, NELLY [address] [place] [address] PCP - General Family Medicine 08/25/18 05/21/24 documented as of this encounter
--- OUTSIDE RECORDS SUMMARY | 2024-07-03 01:43 | XMS_ITS | Encounter Summary ---
Author Organization [facility] [place] [address] Care Team Providers Care Glass Setter Name Role Phone Delmis Dueñas MD Primary Care Provider [phone] Encounter Details Date Type Department Care Team (Latest Contact Info) Description 10/02/2017 3:31 PM EST - 10/02/2017 11:59 PM EST Hospital En[place] [phone] Delmis Dueñas MD [address] [place], [place] [address] Encounter for screening mammogram for breast cancer [...] Sig Dispensed Refills Start Date End Date jcnnawx-unanybzhzkjmp-gjr feine (EXCEDRIN MIGRAINE) 250-250-65 mg Tablet Take [...] MAMMO SCREENING CAD AND REESE BILATERAL Routine 10/02/2017 3:50 PM EST Encounter for screening mammogram for breast cancer documented in this encounter Results * Mammo Screen CAD and Reese Bilat (Generic) (10/02/2017 3:50 PM EST) Anatomical Region Laterality Modality Breast Bilateral Mammography Narrative 10/03/2017 8:33 AM EST BILATERAL MAMMOGRAPHY [...] No mammographic evidence of malignancy. RECOMMENDATION: The [employer] and The Society of Breast Imaging recommend annual screening beginning at age 40 for the general female population. Screening should continue as long as a woman is in good health and is expected to live 10 more years or longer. All women should be familiar with the known benefits, limitations, and potential harms linked to breast cancer screening. They should also know how their breasts normally look and feel and report any breast changes to a health care provider right away. Some women - because of their family history, a genetic tendency, or certain other factors - should be screened with MRIs along with mammograms. (The number of women who fall into this category is very small.) The patient and health care provider should discuss the patient history and decide if earlier screening and breast MRI are appropriate. A result letter has been sent to this patient by the [facility]. BIRADS CATEGORY 1: NEGATIVE Delmis Dueñas MD IMG MAMMO ORDERABLES documented in this encounter Visit Diagnoses Diagnosis Encounter for screening mammogram for breast cancer documented in this encounter Care Teams Glass Setter Relationship Specialty Start Date End Date Delmis Dueñas MD [address] [place] [address] PCP - General 09/19/10 08/24/18 documented as of this encounter
--- OUTSIDE RECORDS SUMMARY | 2024-07-03 01:43 | XMS_ITS | Encounter Summary ---
Author Organization [facility] Address [address] [place] [address] Care Team Providers Care Regrinder Operator Name Role Phone Unknown, Provider Primary Care Provider Encounter Details Date Type Department Care Team (Latest Contact Info) Description 04/12/2020 Lab Requisition [facility] Pathology & Laboratory Medicine - [facility] [address] [place] [address] Sawyer Galloway, [address] [place] [id number] Encounter for general adult medical examination without abnormal findings; Encounter for screening for malignant neoplasm of cervix; Encounter for screening for human papillomavirus (HPV) Social History Tobacco Use Types Packs/Day Years Used Date Smoking Tobacco: Never Assessed Sex and Gender Information Value Date Recorded Sex Assigned at Not on file Gender Identity Not on file Sexual Orientation Not on file documented as of this encounter Plan of Treatment Not on file documented as of this encounter Procedures Procedure Name Priority Date/Time Associated Diagnosis Comments PAP TEST Today 04/08/2020 10:00 EDT Encounter for general adult medical examination without abnormal findings Encounter for screening for malignant neoplasm of cervix Encounter for screening for human papillomavirus (HPV) HPV DNA DETECTION WITH GENOTYPING, PCR Today 04/08/2020 10:00 EDT Encounter for general adult medical examination without abnormal findings Encounter for screening for malignant neoplasm of cervix Encounter for screening for human papillomavirus (HPV) documented in this encounter Results * HUMAN PAPILLOMAVIRUS (HPV) DETECTION-HIGH RISK TYPES (04/08/2020 10:00 EDT) HPV other High Risk types, PCR Negative Negative 04/20/2020 7:16 [facility] Comment:No E6 or E7 mRNA is detected from HPV types 16,18,31,33,35,39,45,51,52,56,58,59,66, and 68 by loan adviser mediated amplification. Papanicolaou smear specimen (specimen) CERVIX UTERI STRUCTURE / Unknown 04/08/2020 10:00 EDT 04/18/2020 16:[address] [facility] MICROBIOLOGY - NERAL ORDERABLES [facility] [address] [place] [address] * PAP TEST (04/08/2020 10:00 EDT) Specimens A. Cervix and/or Endocervix , ThinPrep Imaging System with Manual Evaluation 04/20/2020 7:16 [facility] Specimen Adequacy Satisfactory for Evaluation - transformation zone component present 04/20/2020 7:16 [facility] General Categorization Negative for intraepithelial lesion or malignancy 04/20/2020 7:16 [facility] Descriptive Diagnosis Fungal organisms present morphologically consistent with Nadia species. 04/20/2020 7:16 [facility] Attestation . 04/20/2020 7:16 [facility] at 0715 Clinical History NONE 04/20/20 7:16 [facility] HPV The result for the Human Papillomavirus (HPV) Detection-High Risk Types is Negative. No E6 or E7 mRNA is detected from HPV types 16,18,31,33,35,39 ,45,51,52,56,58,5 9,66, and 68 by loan adviser mediated amplification.Arline ting was performed on specimen [id number] and was resulted on 04/20/2020 0705 EDT by ALESHA, LAB INSTRUMENT RESULTS IN 04/20/2020 7:16 [facility] Scanned Images 04/20/2020 7:16 [facility] Papanicolaou smear specimen (specimen) CERVIX UTERI STRUCTURE / Unknown 04/08/2020 10:00 EDT 04/12/2020 12:47 EDT Sawyer Walton DNP PATHOLOGY ORDERAB LES Performing Organization Address City/State/[facility] Co de Phone Number [facility] [address] [place] [address] documented in this encounter Visit Diagnoses Diagnosis Encounter for general adult medical examination without abnormal findings Unspecified general medical examination Encounter for screening for malignant neoplasm of cervix Screening for malignant neoplasm of the cervix Encounter for screening for human papillomavirus (HPV) Special screening examination for human papillomavirus (HPV) documented in this encounter Care Teams Regrinder Operator Relationship Specialty Start Date End Date Unknown, Provider, PCP - General 12/30/09 documented as of this encounter
--- OUTSIDE RECORDS SUMMARY | 2024-07-03 01:43 | XMS_ITS | Encounter Summary ---
Author [place] [address] Care Team Providers Care Technical Support Manager Name Role Phone Tammy Jewell APRN Primary Care Provider [phone] Encounter Details Date Type Department Care Team (Latest Contact Info) Description 04/21/2020 7:45 AM EDT - 04/21/2020 11:59 PM EDT Hospital Encounter Mammography/[place] [address] Tammy Jewell APRN [address] [place], [place] [address] Encounter for screening mammogram for breast cancer [...] Sig Dispensed Refills Start Date End Date qotuklg-ufjmuugukqwuu-idd feine (EXCEDRIN MIGRAINE) 250-250-65 mg Tablet Take [...] MAMMO SCREENING CAD AND REESE BILATERAL Routine 04/21/2020 8:01 AM EDT Encounter for screening mammogram for breast cancer documented in this encounter Results * Mammo Screening Cad and Reese Bilateral (04/21/2020 8:01 AM EDT) Anatomical Region Laterality Modality Breast Bilateral Mammography Narrative 04/21/2020 8:41 AM EDT BILATERAL MAMMOGRAPHY REASON FOR EXAM: routine screening f[place] [facility] [place]CHNIQUE: CC and MLO views were obtained of each breast using standard 2-D mammography as well as 3-D tomosynthesis. Computer aided detection was used. Comparison: This is compared with prior images. FINDINGS: The breasts are almost entirely fatty. There are no suspicious microcalcifications, masses, or areas of distortion. The pattern is stable. Stable bilateral benign-appearing focal asymmetries. CONCLUSION: No mammographic evidence of malignancy. RECOMMENDATION: Routine screening. A result letter has been sent to this patient by the [facility]. BIRADS CATEGORY 2: Benign findings. * ??Regular screening mammograms starting between age 40 and 50 reduces the risk of from breast cancer. * ??All screening tests have both risks and benefits. These risks and benefits should be assessed for each individual patient through discussion with their provider to determine their preferred breast cancer screening schedule. * ??Women should report any breast changes to a health care provider right away. * ??Some women, because of their family history, a genetic tendency, or other factors, should be screened with annual breast MRI as well as with mammograms. (The number of women who fall into this category is very small). Patients and health care providers should discuss each patients history to decide if earlier screening and/or breast MRI are appropriate. * ??Screening should continue as long as a woman is in good health and is expected to live 10 years or longer. * ??Screening mammography may not detect 10-15% of breast cancers. Thank you for letting us participate in the care of this patient. For questions regarding this report, please contact the number below. ? Tammy Jewell APRN IMG MAMMO ORDERABL ES documented in this encounter Visit Diagnoses Diagnosis Encounter for screening mammogram for breast cancer documented in this encounter Care Teams Technical Support Manager Relationship Specialty Start Date End Date Tammy Jewell APRN [address] [place] [address] PCP - General Family Medicine 08/25/18 05/21/24 documented as of this encounter
--- OUTSIDE RECORDS SUMMARY | 2024-07-03 01:43 | XMS_ITS | Encounter Summary ---
[place] [address] Care Team Providers Care Clinical Informaticist Name Role Phone Varsha Wolfe APRN Primary Care Provider [phone] Encounter Details Date Type Department Care Team (Latest Contact Info) Description 05/22/2024 10:37 AM EDT - 05/22/2024 11:59 PM EDT Hospital Encounter Mammography[place] [address] Tammy Jewell APRN [address] [place], [place] [address] Encounter for screening mammogram for breast cancer [...] Sig Dispensed Refills Start Date End Date aowpiag-miuquxcxalxod-inx feine (EXCEDRIN MIGRAINE) 250-250-65 mg Tablet Take [...] Bilateral (05/22/2024 11:05 AM EDT) WORKSTATION ID [id number] DH RAD Anatomical Region Laterality Modality [...] who have questions please contact the health regular senior care provider that requested your imaging first. ? Narrative [...] cancer documented in this encounter Care Teams Clinical Informaticist Relationship Specialty Start Date End Date Varsha Wolfe APRN [address] [place] [address] PCP - General Geriatric Medicine 05/22/24 documented as of this encounter
--- OUTSIDE RECORDS SUMMARY | 2024-07-03 01:43 | XMS_ITS | Encounter Summary ---
Author Organization [facility] Address [facility] [place] [address] Care Team Providers Care Teller Vault Name Role Phone Delmis Dueñas MD Primary Care Provider [phone] Encounter Details Date Type Department Care Team (Latest Contact Info) Description 08/30/2016 2:47 PM EDT - 08/30/2016 11:59 PM EDT Hospital Encounter XRay at [address] [place] [address] Cory Salas MD [facility] [place] [address] Status post total hip replacement, right Discharge Disposition: Home Social History Tobacco Use [...] Sig Dispensed Refills Start Date End Date ymulbtl-axmdmqmxnuwoz-vkd feine (EXCEDRIN MIGRAINE) 250-250-65 mg Tablet Take [...] Procedure Name Priority Date/Time Associated Diagnosis Comments XR PELVIS AND HIP 2 VIEWS RIGHT Routine 08/30/2016 2:56 PM EDT Status post total hip replacement, right documented in this encounter Results * XR Pelvis w AP & Lat Hip Right (08/30/2016 2:56 PM EDT) Anatomical Region Laterality Modality Pelvis, Hip Right Digital Radiogra phy Impressions 08/30/2016 3:46 PM EDT Right total hip arthroplasty without evidence of complication. I have personally reviewed the image(s) and the residents interpretation and agree with the findings, TERESA ARCHER at 08/30/2016 3:46 PM Narrative 08/30/2016 3:46 PM EDT EXAMINATION: XR PELVIS W AP AND LAT HIP RIGHT CLINICAL HISTORY: Status post total hip arthroplasty. TECHNIQUE: AP pelvis, AP and lateral views of the right hip COMPARISON: Radiograph the pelvis 08/23/2015, 09/07/2014, and 08/09/2014 FINDINGS: Patient is status post right total hip arthroplasty. No evidence of complication. The left hip joint space is preserved. There are unchanged degenerative changes of the sacroiliac joints. The sacrum is largely obscured by overlying bowel gas. Procedure Note Teresa Archer MD - 08/30/2016 EXAMINATION: XR PELVIS W AP AND LAT HIP RIGHT CLINICAL HISTORY: Status post total hip arthroplasty. TECHNIQUE: AP pelvis, AP and lateral views of the right hip COMPARISON: Radiograph the pelvis 08/23/2015, 09/07/2014, and 08/09/2014 FINDINGS: Patient is status post right total hip arthroplasty. No evidence of complication. The left hip joint space is preserved. There are unchanged degenerative changes of the sacroiliac joints. The sacrum is largelyobscured by overlying bowel gas. IMPRESSION Right total hip arthroplasty without evidence of complication. I have personally reviewed the image(s) and the residents interpretationand agree with the findings, TERESA ARCHER at 08/30/2016 3:46 PM Cory Salas MD IMG DX ORDERABLES documented in this encounter Visit Diagnoses Diagnosis Status post total hip replacement, right documented in this encounter Care Teams Teller Vault Relationship Specialty Start Date End Date Delmis Dueñas MD [address] [place] [address] PCP - General 09/19/10 08/24/18 documented as of this encounter
--- OUTSIDE RECORDS SUMMARY | 2024-07-03 01:43 | XMS_ITS | Encounter Summary ---
Author Organization [facility] Address [address] [place] [address] Care Team Providers Care Associate Professor Computer Science Name Role Phone Unknown, Provider Primary Care Provider [phone] Encounter Details Date Type Department Care Team (Late st Contact Info) Description 06/22/2022 Lab Requisition [facility] Pathology & Laboratory Medicine - [address] [id number] Outr Resulting Lab, Provider Social History Tobacco [...] Procedure Name Priority Date/Time Associated Diagnosis Comments HEPATITIS C AB W REFLEX TO HCV RNA BY PCR Routine 06/21/2022 15:40 EDT documented in this encounter Results * HEPATITIS C AB W REFLEX TO HCV RNA BY PCR (06/21/2022 15:40 EDT) Hep C Antibody Negative Negative 06/25/2022 11:[address] [facility] Blood VENOUS BLOOD / Unknown 06/21/2022 15:40 EDT 06/22/2022 17:38 EDT Provider Outr Resulting Lab CHEMISTRY & BLOOD GAS ORDERABLES [facility] [address] [place] [address] documented in this encounter Visit Diagnoses Not on filedocumented in this encounter Care Teams Associate Professor Computer Science Relationship Specialty Start Date End Date Unknown, Provider, PCP - General 12/30/09 documented as of this encounter
--- OUTSIDE RECORDS SUMMARY | 2024-07-03 01:43 | XMS_ITS | Encounter Summary ---
[place] [address] Care Team Providers Care Playground Aide Name Role Phone Tammy Jewell APRN Primary Care Provider [phone] Reason for Visit * Reason Onset Date Comments Questions 06/15/2019 Antibiotics prio r to dental work Encounter Details Date Type Department Care Team (Late st Contact Info) Description 06/15/2019 Telephone [place] [address] Esthela He RN Questions (Antibiotics prior to dental work) Social History Tobacco Use Types Packs/Day Years [...] encounter Miscellaneous Notes * Telephone Encounter - Esthela He RN - 06/15/2019 8:48 AM EDT Images from the original note were not included. Patient called to inquire if it is recommended she take antibiotics prior to dental procedure. I asked patient the AAOS indications questionnaire: Indication Profile Planned Dental Procedure Dental procedures that involve manipulation of gingival tissue or the periapical region of teeth orperforation of the oral mucosa Immunocompromised Status Severely [...] on filedocumented in this encounter Care Teams Playground Aide Relationship Specialty Start Date End Date Tammy Jewell APRN [address] [place] [address] PCP - General Family Medicine 08/25/18 05/21/24 documented as of this encounter
--- OUTSIDE RECORDS SUMMARY | 2024-07-03 01:43 | XMS_ITS | Encounter Summary ---
[place] [address] Care Team Providers Care Reinforcing Metal Worker Name Role Phone Tammy Jewell APRN Primary Care Provider [phone] Encounter Details Date Type Department Care Team (Latest Contact Info) Description 05/14/2023 Travel Social History Tobacco Use Types Packs/Day [...] on filedocumented in this encounter Care Teams Reinforcing Metal Worker Relationship Specialty Start Date End Date Tammy Jewell APRN [address] [place] [address] PCP - General Family Medicine 08/25/18 05/21/24 documented as of this encounter
--- OUTSIDE RECORDS SUMMARY | 2024-07-03 01:43 | XMS_ITS | Encounter Summary ---
[place] [address] Care Team Providers Care Textile Clothing And Footwear Mechanic Name Role Phone Tammy Jewell APRN Primary Care Provider [phone] Encounter Details Date Type Department Care Team (Latest Contact Info) Description 10/10/2018 8:28 AM EST - 10/10/2018 11:59 PM EST Hospital [place] [address] Tammy Jewell APRN [address] [place], [place] [id number] Visit for screening mammogram Discharge Disposition: Home Social History Tobacco Use [...] Sig Dispensed Refills Start Date End Date cwcfgds-utddtwhkvqdap-vxo feine (EXCEDRIN MIGRAINE) 250-250-65 mg Tablet Take [...] MAMMO SCREENING CAD AND REESE BILATERAL Routine 10/10/2018 8:43 AM EST Visit for screening mammogram documented in this encounter Results * Mammo Screening Cad and Reese Bilateral (10/10/2018 8:43 AM EST) Anatomical Region Laterality Modality Breast Bilateral Mammography Narrative 10/10/2018 9:05 AM EST BILATERAL MAMMOGRAPHY [...] mammographic evidence of malignancy. RECOMMENDATION: Medical organizations agree that annual screening mammography beginning at age 40 saves the most lives. The risks of screening are negligible compared to dying from breast cancer or suffering from more aggressive treatment required when detected at a later stage. No woman is at low risk for breast cancer. Some women, because of their family history, a genetic tendency, or certain other factors, should be screened with breast MRI along with mammograms. (The number of women who fall into this category is very small). The patient and health care provider should discuss the patient history and decide if earlier screening and breast MRI are appropriate. Screening should continue as long as a woman is in good health and is expected to live 10 years or longer. Screening mammography may not detect 10-15% of breast cancers. Women should report any breast changes to a health care provider right away. A result letter has been sent to this patient by the [facility]. BIRADS CATEGORY 1: NEGATIVE Tammy Jweell APRN IMG MAMMO ORDERABL ES documented in this encounter Visit Diagnoses Diagnosis Visit for screening mammogram Other screening mammogram documented in this encounter Care Teams Textile Clothing And Footwear Mechanic Relationship Specialty Start Date End Date Tammy Jewell APRN [address] [place] [address] PCP - General Family Medicine 08/25/18 05/21/24 documented as of this encounter
--- OUTSIDE RECORDS SUMMARY | 2024-07-03 01:43 | XMS_ITS | Encounter Summary ---
Author Organization [facility] Address [address] [place] [address] Care Team Providers Care Window Clerk Name Role Phone Unknown, Provider Primary Care Provider [phone] Encounter Details Date Type Department Care Team (Latest Contact Info) Description 04/16/2016 9:18 EDT - 04/16/2016 23:59 EDT Hospital Encounter [address] [address] Unknown, Provider, Discharge Disposition: Home or Self Care Social History Tobacco Use Types Packs/Day Years Used Date Smoking Tobacco: Never Assessed Sex and Gender Information Value Date Recorded Sex Assigned at Not on file Gender Identity Not on file Sexual Orientation Not on file documented as of this encounter Discharge Disposition Disposition Code Departure Means Destination Home or Self Nursing Home documented in this encounter Plan of Treatment Not on file documented as of this encounter Visit Diagnoses Not on filedocumented in this encounter Care Teams Window Clerk Relationship Specialty Start Date End Date Unknown, Provider, PCP - General 12/30/09 documented as of this encounter
--- OUTSIDE RECORDS SUMMARY | 2024-07-03 01:43 | XMS_ITS | Encounter Summary ---
Author Organization [facility] Address [address] [place] [address] Care Team Providers Care Ticker Wirer Name Role Phone Unknown, Provider Primary Care Provider [phone] Encounter Details Date Type Department Care Team (Late st Contact Info) Description 09/10/2021 Lab Requisition [facility] Pathology & Laboratory Medicine - [address] [address] Outr Resulting Lab, Provider Social History Tobacco [...] Priority Date/Time Associated Diagnosis Comments ZZCOVID-19 TEST [facility] PCR Today 09/09/2021 9:33 EST COVID-19 TESTING Routine 09/09/2021 9:33 EST documented in this encounter Results * COVID-19 TEST [facility] PCR (09/09/2021 9:33 EST) Swab 09/09/2021 9:33 EST 09/10/2021 15:47 EST Provider Outr Resulting Lab MICROBIOLOGY - GENERAL ORDERABLES [facility] [address] [place] [address] * COVID-19 TESTING (09/09/2021 9:33 EST) COVID-19 rt-PCR Result Negative Negative 09/11/2021 9:44 EST [facility] Comment: This test has [...] was performed using the joann SARS-CoV-2 assay ([employer] on the Joann 6800 System Performing Lab Joann [address] [facility] Lab 09/11/2021 9:44 EST [facility] Swab 09/09/2021 9:33 EST 09/10/2021 15:47 EST Provider Outr Resulting Lab MICROBIOLOGY - GENERAL ORDERABLES [facility] [address] [place] [address] documented in this encounter Visit Diagnoses Not on filedocumented in this encounter Care Teams Ticker Wirer Relationship Specialty Start Date End Date Unknown, Provider, PCP - General 12/30/09 documented as of this encounter
--- OUTSIDE RECORDS SUMMARY | 2024-07-03 01:43 | XMS_ITS | Encounter Summary ---
[place] [address] Care Team Providers Care Welfare Adviser Name Role Phone Tammy Jewell APRN Primary Care Provider [phone] Encounter Details Date Type Department Care Team (Latest Contact Info) Description 05/14/2023 9:36 AM EDT - 05/14/2023 11:59 PM EDT Hospital Encounter Mammography/[place] [id number] Mary Jane Varela, NELLY [facility] [address] [place], [place] [id number] Encounter for screening mammogram for breast cancer [...] Sig Dispensed Refills Start Date End Date avhautz-xzyygwxreupim-jqy feine (EXCEDRIN MIGRAINE) 250-250-65 mg Tablet Take [...] MAMMO SCREENING CAD AND REESE BILATERAL Routine 05/14/2023 9:55 AM EDT Encounter for screening mammogram for breast cancer documented in this encounter Results * Mammo Screening Cad and Reese Bilateral (05/14/2023 9:55 AM EDT) Anatomical Region Laterality Modality Breast Bilateral Mammography Narrative 05/14/2023 10:50 AM EDT BILATERAL MAMMOGRAPHY REASON FOR EXAM: [...] BIRADS CATEGORY 1: NEGATIVE Electronically signed by: GAYLE MCKINNEY MD Mary Jane Varela APRN [facility] MAMMO ORDERABLES documented in this encounter Visit Diagnoses Diagnosis Encounter for screening mammogram for breast cancer documented in this encounter Care Teams Welfare Adviser Relationship Specialty Start Date End Date Tammy Jewell APRN [address] [place] [address] PCP - General Family Medicine 08/25/18 05/21/24 documented as of this encounter
--- OUTSIDE RECORDS SUMMARY | 2024-07-03 01:43 | XMS_ITS | Encounter Summary ---
Author Organization [facility] [place] [address] Care Team Providers Care Extruding Machine Operator Name Role Phone Delmis Dueñas MD Primary Care Provider [phone] Encounter Details Date Type Department Care Team (Latest Contact Info) Description 10/01/2016 2:03 PM EST - 10/01/2016 11:59 PM EST Hospital En[place] [id number] Delmis Dueñas MD [address] [place], [place] [address] Encounter for screening mammogram for malignant neoplasm of breast Discharge Disposition: Home Social History Tobacco Use [...] Sig Dispensed Refills Start Date End Date gkharwr-xyhukalbqlgsk-odu feine (EXCEDRIN MIGRAINE) 250-250-65 mg Tablet Take [...] MAMMO SCREENING CAD AND REESE BILATERAL Routine 10/01/2016 2:27 PM EST Encounter for screening mammogram for malignant neoplasm of breast documented in this encounter Results * Mammo Screen CAD and Reese Bilat (Generic) (10/01/2016 2:27 PM EST) Anatomical Region Laterality Modality Breast Bilateral Mammography Narrative 10/02/2016 9:02 AM EST BILATERAL MAMMOGRAPHY [...] No mammographic evidence of malignancy. RECOMMENDATION: [employer] and The Society of [...] Diagnoses Diagnosis Encounter for screening mammogram for malignant neoplasm of breast Other screening mammogram documented in this encounter Care Teams Extruding Machine Operator Relationship Specialty Start Date End Date Delmis Dueñas MD [address] [place] [address] PCP - General 09/19/10 08/24/18 documented as of this encounter
--- OUTSIDE RECORDS SUMMARY | 2024-07-03 01:43 | XMS_ITS | Encounter Summary ---
Author Organization [facility] Address [address] [place] [address] Care Team Providers Care Livestock Brands Inspector Name Role Phone Unknown, Provider Primary Care Provider [phone] Encounter Details Date Type Department Care Team (Late st Contact Info) Description 09/22/2013 Results Only [facility] Laboratory Services - [facility] [place] [address] [place], [place] [address] Delmis Rudd MD [address] [place], [place] [id number] Social History Tobacco Use Types Packs/Day Years Used Date Smoking Tobacco: Never Assessed Sex and Gender Information Value Date Recorded Sex Assigned at Not on file Gender Identity Not on file Sexual Orientation Not on file documented as of this encounter Plan of Treatment Not on file documented as of this encounter Procedures Procedure Name Priority Date/Time Associated Diagnosis Comments PAP TEST- RESULT ONLY Routine 09/22/2013 0:00 EST documented in this encounter Results * PAP TEST- RESULT ONLY (09/22/2013 0:00 EST) Pathology Report: CYTOPATHOLOGY REPORT Reports generated via electronic interface contain original data; however they are lacking the format of the original report. Caution should be taken when reading/interpreti ng unformatted reports. Name: ? CLARENCE PADRON ? Accession #: ? [id number] ? : ? 1955 (Age: 58) ??F ?Collect Date: ? 09/22/2013 ? Location: ? [facility] ? Receive Date: ? 09/23/2013 ? Provider: DELMIS RUDD MD Copy to: ? Final Report SPECIMEN ADEQUACY ? Satisfactory for Evaluation - transformation zone component present GENERAL CATEGORIZATION ? Negative for Intraepithelial Lesion or Malignancy ?? Last Menstrual Period: 04/2005 Treatment History: Cryotherapy: 1986 Specimen/Source: ??Pap Test, Cervix/Endocervix, ThinPrep Imaging System with manual evaluation Document reviewed and electronically signed by: ? YULISSA Hawley(ASCP) ? Report ??Date: 09/29/2013 16:08 HPV with Pap Test ? Date Ordered: ? 09/29/2013 ? Status: ?? Signed Out ?Date Complete: ? 10/01/2013 ? By: ??System Interface ? Date Reported: ? 10/01/2013 ? Interpretation RESULT: Negative for HPV. No E6 or E7 mRNA is detected from HPV types 16,18,31,33,35, 39,45,51,52,56,58, 59,66, and 68 by refractory products supervisor mediated amplification. Comments Document reviewed and electronically signed by: ? System Interface ? Report date: 10/01/2013 By the signature above, the attending physician certifies that he/she has personally conducted a gross and/or microscopic examination of the described specimens and rendered or confirmed the above diagnosis. End of Report [facility] 09/22/2013 09/23/2013 Delmis Rudd MD PATHOLOGY ORDERABLES Performing Organization Address City/State/[facility] Co de Phone Number [id number] [address] documented in this encounter Visit Diagnoses Not on filedocumented in this encounter Care Teams Livestock Brands Inspector Relationship Specialty Start Date End Date Unknown, Provider, PCP - General 12/30/09 documented as of this encounter
--- OUTSIDE RECORDS SUMMARY | 2024-07-03 01:43 | XMS_ITS | Encounter Summary ---
Author Organization [facility] Address [address] [place] [address] Care Team Providers Care Screen Operator Name Role Phone Unknown, Provider Primary Care Provider [phone] Encounter Details Date Type Department Care Team (Late st Contact Info) Description 06/22/2022 Lab Requisition [facility] Pathology & Laboratory Medicine - [facility] [address] [place] [address] Outr Resulting Lab, Provider Social History Tobacco [...] Procedure Name Priority Date/Time Associated Diagnosis Comments HIV 1/2 ANTIGEN AND ANTIBODY, 4TH GENERATION Routine 06/21/2022 15:40 EDT documented in this encounter Results * HIV 1/2 ANTIGEN AND ANTIBODY, 4TH GENERATION (06/21/2022 15:40 EDT) HIV 1 and 2 Antibody/p24 Antigen, 4th Generation Negative Negative 06/23/2022 9:18 EDT [facility] Comment:If acute HIV-1 infec tion is suspected in a high risk patient, submit plasma specimen for HIV-1 RNA quantitation test. Blood VENOUS BLOOD / Unknown 06/21/2022 15:40 EDT 06/22/2022 17:38 EDT Narrative [facility] - 06/23/2022 9:18 EDT Fourth Generation assay performed on the Siemens Centaur XPT. Provider Outr Resulting Lab IMMUNOLOGY A ND SEROLOGY ORDERABLES [facility] [address] [place] [address] documented in this encounter Visit Diagnoses Not on filedocumented in this encounter Care Teams Screen Operator Relationship Specialty Start Date End Date Unknown, Provider, PCP - General 12/30/09 documented as of this encounter
--- OUTSIDE RECORDS SUMMARY | 2024-07-03 01:43 | XMS_ITS | Referral Summary ---
Author Organization [facility] Address [address] [place] [address] Care Team Providers Care Sorority Mother Name Role Phone Unknown, Provider Primary Care Provider [phone] Social History Tobacco Use Types Packs/Day Years Used Date Smoking Tobacco: Never Assessed Sex and Gender Information Value Date Recorded Sex Assigned at Not on file Gender Identity Not on file Sexual Orientation Not on file Plan of Treatment Not on file Procedures Procedure Name Priority Date/Time Associated Diagnosis Comments HEPATITIS C AB W REFLEX TO HCV RNA BY PCR Routine 06/21/2022 15:40 EDT from Last 3 Months or Most Recently Relevant to Health Maintenance Results * HEPATITIS C AB W REFLEX TO HCV RNA BY PCR (06/21/2022 15:40 EDT) Hep C Antibody Negative Negative 06/25/2022 11:35 EDT [facility] Blood VENOUS BLOOD / Unknown 06/21/2022 15:40 EDT 06/22/2022 17:38 EDT Provider Outr Resulting Lab CHEMISTRY & BLOOD GAS ORDERABLES [facility] [address] [place] [address] from Last 3 Months or Most Recently Relevant to Health Maintenance Care Teams Sorority Mother Relationship Specialty Start Date End Date Unknown, Provider, PCP - General 12/30/09
--- OUTSIDE RECORDS SUMMARY | 2024-07-03 01:43 | XMS_ITS | Encounter Summary ---
Author Organization [facility] Address [address] [place] [address] Care Team Providers Care Scrubber Operator Name Role Phone Unavailable Primary Care Provider Unavailabl e Encounter Details Date Type Department Care Team (Late st Contact Info) Description 12/28/2009 Results Only [facility] Services - [facility] [place] [address] [place], [place] [id number] Brayan Ovalle MD [address] [place] [address] Social History Tobacco Use Types Packs/Day Years Used Date Smoking Tobacco: Never Assessed Sex and Gender Information Value Date Recorded Sex Assigned at Not on file Gender Identity Not on file Sexual Orientation Not on file documented as of this encounter Plan of Treatment Not on file documented as of this encounter Procedures Procedure Name Priority Date/Time Associated Diagnosis Comments SURGICAL PATHOLOGY Routine 12/28/2009 0:00 EST documented in this encounter Results * SURGICAL PATHOLOGY (12/28/2009 0:00 EST) Pathology Report: SURGICAL PATHOLOGY REPORT ? Reports generated via electronic interface contain original data; ? however they are lacking the format of the original report. ? Caution should be taken when reading/interpreti ng unformatted reports. ? Name: ? DRINKWATER, CLARENCE ? Accession #: ? [id number] ? : ? 1955 (Age: 54) ??F ? Collect Date: ? 12/28/2009 ? Location: ? [facility] ? Receive Date: ? 12/29/2009 ? Provider: BRAYAN OVALLE MD ? Copy to: CORBY RUDD MD ? Final Pathologic Diagnosis: ? Gallbladder, cholecystectomy: ? 1. ?Mild chronic cholecystitis. ? 2. ? Cholelithiasis. ? 3. ? Resection margin viable. ? Document reviewed and electronically signed by: ? Renan Georgempa, MD ? Report ??Date: 01/02/2010 15:09 ? By the signature above, the attending physician certifies that he/she has ? personally conducted a gross and/or microscopic examination of the described ? specimens and rendered or confirmed the above diagnosis. ? Specimen(s) Received: ? G. B. ? Clinical History: ? Biliary colic ? Gross Description: ? Received in formalin labelled Drinkwater, Clarence and gallbladder is an ?? intact gallbladder measuring 8.0 x 3.5 x 2.7 cm with an attached cystic duct ? measuring 0.5 cm in length and 0.3 cm in diameter. ??The cystic duct lumen is ? patent. ??The margin of the cystic duct is inked. ??The serosa of the gallbladder is mobley to purple and smooth and glistening. ??Upon the opening, there were ? several dozen yellow choleliths ranging from 0.6 cm to 0.8 cm mixed with thick ?? light green mucous. ??The mucosa is pink-mobley and trabecular. ??The mucosa is with no masses. ??The wall thickness is 0.2 cm. ??A lymph node is not present. ??The en face cystic duct margin and two segments of gallbladder were placed in a single cassette. ??(Thelma Tang/[facility] ? End of Report ? JESSICA [facility]IN 12/28/2009 12/29/2009 9:0 6 EST Brayan Ovalle MD PATHOLOGY ORDERABLE S [facility] [address] [place] [address] documented in this encounter Visit Diagnoses Not on filedocumented in this encounter
--- OUTSIDE RECORDS SUMMARY | 2024-07-03 01:43 | XMS_ITS | Clinical Summary ---
Author Organization [facility] Address [address] [place] [address] Care Team Providers Care Superannuation Clerk Name Role Phone Unknown, Provider Primary Care Provider [phone] Social History Tobacco Use Types Packs/Day Years Used Date Smoking Tobacco: Never Assessed Sex and Gender Information Value Date Recorded Sex Assigned at Not on file Gender Identity Not on file Sexual Orientation Not on file Plan of Treatment Health Maintenance Due Date Last Done Comments RSV Immunization ( o r 60+ Years) (1 - 1-dose 60+ series) 2016 Fall Risk Screening 2021 COVID-19 Vaccine ( season) 2023 Hepatitis C Screen Completed 06/21/2022 Procedures Procedure Name Priority Date/Time Associated Diagnosis Comments HEPATITIS C AB W REFLEX TO HCV RNA BY PCR Routine 06/21/2022 15:40 EDT from Last 3 Months or Most Recently Relevant to Health Maintenance Results * HEPATITIS C AB W REFLEX TO HCV RNA BY PCR (06/21/2022 15:40 EDT) Hep C Antibody Negative Negative 06/25/2022 11:35 EDT [facility] Blood VENOUS BLOOD / Unknown 06/21/2022 15:40 EDT 06/22/2022 17:38 EDT Provider Outr Resulting Lab CHEMISTRY & BLOOD GAS ORDERABLES [facility] [address] [place] [address] from Last 3 Months or Most Recently Relevant to Health Maintenance Care Teams Superannuation Clerk Relationship Specialty Start Date End Date Unknown, Provider, PCP - General 12/30/09
--- OUTSIDE RECORDS SUMMARY | 2024-07-03 01:44 | XMS_ITS | Encounter Summary ---
Author [place] [address] Care Team Providers Care Wood Sawyer Name Role Phone Delmis Dueñas MD Primary Care Provider [phone] Reason for Visit * Reason Onset Date Comments Post Hospital Discharge 08/12/2014 Encounter Details Date Type Department Care Team (Late st Contact Info) Description 08/12/2014 Tele[place] [phone] Yanely Henriquez RN Post Hospital Discharge Social History Tobacco Use Types Packs/Day Years Used Date Smoking Tobacco: Never Smokeless Tobacco: Never Alcohol Use Standard Drinks/Week Comments Yes 4 (1 standard drink = 0.6 oz pur e alcohol) a week 4 glasses Sex and Gender Information Value Date Recorded Sex Assigned at Not on file Gender Identity Not on file Sexual Orientation Not on file documented as of this encounter Miscellaneous Notes * Telephone Encounter - Yanely [place] RN - [...] on filedocumented in this encounter Care Teams Wood Sawyer Relationship Specialty Start Date End Date Delmis Dueñas MD [address] [place] [address] PCP - General 09/19/10 08/24/18 documented as of this encounter
--- OUTSIDE RECORDS SUMMARY | 2024-07-03 01:44 | XMS_ITS | Encounter Summary ---
[place] [address] Care Team Providers Care Digester Name Role Phone Delmis Dueñas MD Primary Care Provider [phone] Encounter Details Date Type Department Care Team (Latest Contact Info) Description 09/11/2013 8:57 AM EST - 09/11/2013 11:59 PM EST Hospital Encounter [place] [id number] CLINIC, Delmis Menon MD [address] [place], [place] [id number] Discharge Disposition: Home Social History Tobacco Use Types Packs/Day Years Used Date Smoking Tobacco: Never Alcohol Use Standard Drinks/Week Comments Yes 4 (1 standard drink = 0.6 oz pur e alcohol) Sex and Gender Information Value Date Recorded Sex Assigned at Not on file Gender Identity Not on file Sexual Orientation Not on file documented as of this encounter Medications at Time of Discharge Medication Sig Dispensed Refills Start Date End Date multivitamin (THERAGRAN) tablet Take 1 tablet by mouth daily. hydrochlorothiazide (HYDRODIURIL) 25 mg tablet 25mg, PO, QAM 07/13/2004 polyethylene glycol (MIRALAX) 17 gram/dose powder 17 grams PO BID, PO, BID,PRN 07/13/2004 CALCIUM PHOSPHATE TRIB/VIT D3 (CITRACAL + D ORAL) Take by mouth. 06/23/2014 potassium chloride SA (K-DUR;KLOR-CON) 20 mEq tablet 20meq, PO, QAM 08/30/2004 08/03/2014 Triamcinolone Acetonide 0.05 % Oint 1 Appl(s), Top, BID PRN 07/13/2004 08/09/2014 documented as of this encounter Plan of Treatment Not on file documented as of this encounter Procedures Procedure Name Priority Date/Time Associated Diagnosis Comments MAMMO SCREENING CAD BILATERAL Routine 09/11/2013 9:23 AM EST documented in this encounter Results * Mammo digital bilateral Screening with CAD (09/11/2013 9:23 AM EST) Anatomical Region Laterality Modality Breast Bilateral Mammography 09/11/2013 9:23 AM EST Narrative 09/14/2013 1:52 PM EST REASON FOR EXAM: Screening ?? TECHNIQUE: Cranio-caudal (CC) and mediolateral oblique (MLO) views of the both breasts obtained with direct digital capture. The exam was evaluated by CAD Version 8.3.17. ?? LEFT BREAST MAMMOGRAPHY ?? This is an indeterminate (ACR Category 0) mammogram of the LEFT breast. There is a question of a mass in the lower, outer Left breast, requiring additional imaging. ? RIGHT BREAST MAMMOGRAPHY ?? This is a negative mammogram (ACR Category 1). There is a stable fibroglandular pattern without significant change as compared to prior studies. There is no mammographic evidence of cancer. ? The breasts are predominantly fatty. ? CONCLUSION ?? ASSESSMENT IS INCOMPLETE: Additional imaging recommended (ACR Category 0) of the Left breast. [facility] contact the patient to schedule additional imaging. ?? The contralateral breast is NEGATIVE (ACR Category 1). Routine screening mammography is recommended of the Right breast with the frequency dependent on the patient's age and breast cancer risk factors. Procedure Note Paola Meaed MD - 09/14/2013 REASON FOR EXAM: Screening TECHNIQUE: Cranio-caudal (CC) and mediolateral oblique (MLO) views of theboth breasts obtained with direct digital capture. The exam was evaluated byCAD Version 8.3.17. LEFT BREAST MAMMOGRAPHY This is an indeterminate (ACR Category 0) mammogram of the LEFT breast.There is a question of a mass in the lower, outer Left breast, requiringadditional imaging. RIGHT BREAST MAMMOGRAPHY This is a negative mammogram (ACR Category 1). There is a stablefibroglandular pattern without significant change as compared to prior studies. There isno mammographic evidence of cancer. The breasts are predominantly fatty. CONCLUSION ASSESSMENT IS INCOMPLETE: Additional imaging recommended (ACR Category 0)of the Left breast. [facility] contact the patient toschedule additional imaging. The contralateral breast is NEGATIVE (ACR Category 1). Routine screening mammography is recommended of the Right breast with the frequencydependent on the patient's age and breast cancer risk factors. Delmis Dueñas MD IMG MAMMO ORDERABLES documented in this encounter Visit Diagnoses Not on filedocumented in this encounter Care Teams Digester Relationship Specialty Start Date End Date Delmis Dueñas MD [address] [place] [address] PCP - General 09/19/10 08/24/18 documented as of this encounter
--- OUTSIDE RECORDS SUMMARY | 2024-07-03 01:44 | XMS_ITS | Encounter Summary ---
Author Organization [facility] Address [facility] [place] [address] Care Team Providers Care Bomb Squad Commander Name Role Phone Delmis Dueñas MD Primary Care Provider [phone] Encounter Details Date Type Department Care Team (Latest Contact Info) Description 08/03/2014 12:17 PM EDT - 08/03/2014 11:59 PM EDT Hospital Encounter XRay at [address] [place] [id number] Post-traumatic osteoarthritis of right hip Social History Tobacco Use Types Packs/Day Years [...] Date End Date Cinnamon Bark 500 mg Capsule Take by mouth daily. potassium chloride (K-DUR/KLOR-CON) 20 mEq Tab Sust.Rel. Particle/Crystal Take 20 mEq by mouth 2 times daily. multivitamin (THERAGRAN) tablet Take 1 tablet by mouth daily. hydrochlorothiazide (HYDRODIURIL) 25 mg tablet 25mg, PO, QAM 07/13/2004 polyethylene glycol (MIRALAX) 17 gram/dose powder 17 grams PO BID, PO, BID,PRN 07/13/2004 aspirin 325 mg Tablet, Delayed Release (E.C.) Take 1 tablet by mouth 2 times daily for 41 days. Take with food. 82 tablet 0 08/10/2014 09/20/2014 acetaminophen (TYLENOL) 500 mg Tablet Take 2 tablets by mouth every 8 hours. Around the clock until August 19, and then as needed. DO NOT EXCEED 3000 mg tylenol in a 24 hour period. 08/10/2014 01/11/2015 bisacodyl (DULCOLAX) [address] 1 suppository rectally daily as needed. 08/10/2014 09/07/2014 oxyCODONE (ROXICODONE) 5 mg Tablet Take 1-3 tablets by mouth every 4 hours as needed for Pain. Take the smallest dose possible to control your pain. As your pain improves, take smaller doses and increase the time between doses. You may break the tablet to achieve a smaller dose. 80 tablet 0 08/10/2014 09/07/2014 senna-docusate (PERICOLACE) 8.6-50 mg Tablet Take 1-4 tablets by mouth 2 times daily. 60 tablet 2 08/10/2014 09/07/2014 Triamcinolone Acetonide 0.05 % Oint 1 Appl(s), Top, BID PRN 07/13/2004 08/09/2014 documented as of this encounter Plan of Treatment Not on file documented as of this encounter Procedures Procedure Name Priority Date/Time Associated Diagnosis Comments XR CHEST PA AND LATERAL Routine 08/03/2014 12:28 PM EDT Post-traumatic osteoarthritis of right hip documented in this encounter Results * XR chest routine PA & lateral (08/03/2014 12:28 PM EDT) Anatomical Region Laterality Modality Chest N/A Radiographic Kareen ging 08/03/2014 12:2 8 PM EDT Narrative 08/03/2014 3:11 PM EDT Examination CHEST ROUTINE 2 VIEWS Clinical History Preoperative: R HIP SURGERY Comparison None. Technique PA and lateral chest radiograph. Findings The lungs are clear. ??The cardiomediastinal silhouette, kia, and vascular markings are within normal limits. ??There is mild elevation of left hemidiaphragm. ??No pleural effusion or pneumothorax. ??Degenerative change of the thoracic spine. Impression No acute cardiopulmonary pathology. Film and interpretation reviewed by the attending Procedure Note Leann Barney MD - 08/03/2014 Examination CHEST ROUTINE 2 VIEWS Clinical History Preoperative: R HIP SURGERY Comparison None. Technique PA and lateral chest radiograph. Findings The lungs are clear. The cardiomediastinal silhouette, kia, and vascular markings are within normal limits. There is mild elevation of left hemidiaphragm. No pleural effusion or pneumothorax. Degenerative changeof the thoracic spine. Impression No acute cardiopulmonary pathology. Film and interpretation reviewed by the attending Neri Mo MD IMG DX ORDERABLES documented in this encounter Visit Diagnoses Diagnosis Post-traumatic osteoarthritis of right hip Secondary localized osteoarthrosis, pelvic region and thigh documented in this encounter Care Teams Bomb Squad Commander Relationship Specialty Start Date End Date Delmis Dueñas MD [address] [place] [address] PCP - General 09/19/10 08/24/18 documented as of this encounter
--- OUTSIDE RECORDS SUMMARY | 2024-07-03 01:44 | XMS_ITS | Encounter Summary ---
[place] [address] Care Team Providers Care Friction Saw Operator Name Role Phone Delmis Dueñas MD Primary Care Provider [phone] Encounter Details Date Type Department Care Team (Late st Contact Info) Description 09/17/2014 Orders [place] [address] Tj Encinas MD [facility] [place] [address] Abnormal mammogram, unspecified Social History Tobacco Use Types Packs/Day Years [...] unspecified documented in this encounter Care Teams Friction Saw Operator Relationship Specialty Start Date End Date Delmis Dueñas MD [address] [place] [address] PCP - General 09/19/10 08/24/18 documented as of this encounter
--- OUTSIDE RECORDS SUMMARY | 2024-07-03 01:44 | XMS_ITS | Encounter Summary ---
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 Address City/[facility]/ZIP Co de Phone Number CERTRAN NELSONENNIUM * (ABNORMAL) Hemogram (08/10/2014 4:27 AM EDT) White Blood Cell 12.4(H) 4.0 - 10.0 x10(3)/mc L CERNER MILLENNIUM Red Blood Cell 3.19(L) 3.93 - 5.22 x10(6)/mc L CERNER MILLENNIUM Hemoglobin 9.8(L) 11.2 - 15.7 gm/dL CERNER MILLENNIUM Hematocrit 29.0(L) 34.0 - 45.0 % CERNER MILLENNIUM Mean Cell Volume 90.9 79.0 - 94.0 fL CERNER MILLENNIUM Mean Cell Hemoglobin 30.7 26.6 - 32.2 pg CERNER MILLENNIUM Mean Cell Hemoglobin Concentration 33.8 32.0 - 36.5 gm/dL CERNER MILLENNIUM Platelet 218 145 - 370 x10(3)/mc L CERNER MILLENNIUM RDW Standard Deviation 40.2 35.0 - 46.0 fL CERNER MILLENNIUM RDW coefficient of variation 12.0 10.9 - 14.4 % CERNER MILLENNIUM Mean Platelet Volume 9.9 9.0 - 12.0 fL CERNER MILLENNIUM Blood specimen (specimen) 08/10/2014 4:27 AM EDT 08/10/2014 4:50 AM EDT Narrative Resulting Agency Comment Spec In Lab Neri Le MD HEMATOLOGY ORDERABLE S CERTRAN NELSONENNIUM * (ABNORMAL) Basic Metabolic Panel (non-fasting) (08/10/2014 4:27 AM EDT) Glucose 136 60 - 199 mg/dL CERNER MILLENNIUM Comment:Diabetes: >=200 mg/d L plus symptoms Blood Urea Nitrogen 10 8 - 18 mg/dL CERNER MILLENNIUM Creatinine 0.49(L) 0.70 - 1.20 mg/dL CERNER MILLENNIUM Comment: Please note that the pediatric reference intervals supplied above were not validated at [facility]. Results from pediatric patients should be interpreted in conjunction to the patient's age, height and muscle mass. Sodium 139 135 - 145 mmol/L CERNER MILLENNIUM Potassium 4.6 3.5 - 5.0 mmol/L CERNER MILLENNIUM Comment: Please note: ??Patients with WBC >100,000 may have falsely elevated Potassium levels. ??For accurate Potassium quantification in these patients send serum separator tube (gold top) for subsequent determinations. ??Contact the Clinical Chemistry Laboratory if there are any questions. Chloride 104 98 - 107 mmol/L CERNER MILLENNIUM Carbon Dioxide 26 22 - 31 mmol/L CERNER MILLENNIUM Anion Gap 9 5 - 15 mmol/L CERNER MILLENNIUM Calcium 8.6 8.5 - 10.5 mg/dL CERNER MILLENNIUM Est Glomerular Filtration Rate >60 >=60 CERNER MILLENNIUM Comment: This estimated GFR (eGFR) value was calculated using the MDRD equation which has been validated on patients between the ages of 18 and 70. The MDRD should not be used to assess kidney function in patients < 18 years of age or in patients with extremes of body mass, or in patients with acute kidney failure. This value should be multiplied by 1.2 for patients. For further information please copy and paste the following links into your internet browser. [email or web address] Blood specimen (specimen) 08/10/2014 4:27 AM EDT 08/10/2014 4:50 AM EDT Narrative Resulting Agency Comment Spec In Lab Neri Le MD CHEMISTRY ORDERABLES [facility] 10seconds SoftwareENNIUM * XR pelvis 1 or 2 views (08/09/2014 3:28 PM EDT) Anatomical Region Laterality Modality Pelvis N/A Radiographic Kareen ging 08/09/2014 3:28 PM EDT Narrative 08/09/2014 3:58 PM EDT Examination PELVIS 1 OR 2 VIEWS/XPORT Clinical History hip fracture Comparison 06/23/2014. Technique Portable AP view of the pelvis including both hips on 08/09/2014 at 1515 hours. Findings There has been right hip arthroplasty. ??Components appear well-seated, with no immediate post arthroplasty complication such as periprosthetic fracture. ?? Clustered small hazy nodular opacities projecting over and lateral to the proximal right femur, question antibiotic beads versus object external to the patient. Unchanged post arthroplasty appearance on the left. ?? Impression No immediate post arthroplasty complications identified. Procedure Note Jazlyn Woodard MD - 08/09/2014 Examination PELVIS 1 OR 2 VIEWS/XPORT Clinical History hip fracture Comparison 06/23/2014. Technique Portable AP view of the pelvis including both hips on 08/09/2014 at 1515hours. Findings There has been right hip arthroplasty. Components appear well-seated,with no immediate post arthroplasty complication such as periprosthetic fracture. Clustered small hazy nodular opacities projecting over and lateral to the proximal right femur, question antibiotic beads versus object external tothe patient. Unchanged post arthroplasty appearance on the left. Impression No immediate post arthroplasty complications identified. Neri Le MD IMG DX ORDERABLES * Surgical Pathology Report (08/09/2014 12:53 PM EDT) Final Diagnosis ? [facility] ? Provider: ?? NERI LE ?? Pt. Name: ?? ESTHELA RICE ? Acc #: ?[id number] ?Pt. ? Col Date: ?? 08/09/2014 ?/Sex: ?1955,(59 years),Female ? Rec Date: ?? 08/09/2014 ?LOC: ?[id number] ? SURGICAL PATHOLOGY ? ---Pathologic Diagnosis--- ? Right femoral head, osteoarthitis. ?Gross surgical pathology examination. ? CR-0 ? 08/09/14 ? SNS ? 08/10/14 Verified by: ? Gene DO, Bessie Hilario. ? Pathologist ? (Electronic Signature) ? The attending pathologist whose signature appears on this report has ? reviewed all diagnostic slides and has edited the gross and/or ? microscopic portion of the report in rendering the final pathologic ? diagnosis. ? ---Gross Description--- ? A - Labeled/Fixativ e: Right femoral head, fresh. ? Quantity/Size: Single, 4.5 x 4.5 x 4.0. ? Tissue Description: Intact femoral head with up to 1 cm of attached neck. ? Margin: Smooth, red bone. ? Articular surface: Red, granular and pitted. ? Eburnation: Present. ? Osteophytes: Present. ? Cut surface: Yellow, trabecular bone. ? Subchondral Sclerosis: Present. ? Subchondral Cysts: Absent. ? Sections/Proces sing: No sections are submitted. ??sns ? ---Clinical Information--- ? Specimen Submitted: ? A - Right femoral head ? Clinical History: ? Post-traumatic OA right hip ? Clinical Diagnosis: ? Same 08/10/2014 1:11 PM EDT [facility] BONE STRUCTURE / Unknown 08/09/2014 12:53 PM EDT 08/09/2014 12:53 PM EDT Neri Le MD PATHOLOGY/CYTOLOGY O RDERABLES Performing Organization Address [facility]/State/[facility] Co de Phone Number JARAD [facility] [place] [address] * Specimen to Pathology (surgical or derm) (08/09/2014 12:53 PM EDT) AP Specimen 08/09/2014 12:5 3 PM EDT 08/09/2014 12:52 PM EDT Narrative JARAD ALBARRAN - 08/09/2014 12:53 PM EDT Specimen requisition ordered. ??Separate Pathology report to follow Neri Le MD PATHOLOGY/CYTOLOGY O RDERAFRANCO JARAD ALBARRAN documented in this encounter Visit Diagnoses Diagnosis S/P right anterior total hip arthroplasty 08/09/14 ([place])- Primary Hip joint replacement by other means Post-traumatic osteoarthritis of right hip Secondary localized osteoarthrosis, pelvic region and thigh Post-traumatic osteoarthritis of right hip Secondary localized osteoarthrosis, pelvic region and thigh documented in this encounter Administered Medications Inactive Administered Medications - up to 3 most recent administrations Medication Order MAR Action Action Date Dose Rate Site bacitracin injection ONCE PRN, Starting on Sat08/09/14 at 1305, Until Sat08/09/14 at 1504, Intra-Operative (Intra-Procedure), Routine Given 08/09/2014 1:05 PM EDT 50,000 Units 19- Surgical Site BUpivacaine-EPINEPHri ne 0.25 %-1:200,000 injection ONCE PRN, Starting on Sat08/09/14 at 1306, Until Sat08/09/14 at 1504, Intra-Operative (Intra-Procedure), Routine Given 08/09/2014 1:06 PM EDT 50 mLs 19- Surgical Site cloNIDine injection ONCE PRN, Starting on Sat08/09/14 at 1307, Until Sat08/09/14 at 1504, Intra-Operative (Intra-Procedure), Routine Given 08/09/2014 1:07 PM EDT 50 mcg 19- Surgical Site ketorolac (TORADOL) injection ONCE PRN, Starting on Sat08/09/14 at 1307, Until Sat08/09/14 at 1504, Pain, Intra-Operative (Intra-Procedure), Routine Given 08/09/2014 1:07 PM EDT 30 mg 19- Surgical Site documented in this encounter Active and Recently Administered Medications Times are shown in EDT. Scheduled Medication Order 08/08/2014 08/09/2014 08/10/2014 acetaminophen (TYLENOL) tablet 1,000 mg 1,000 mg, Oral, EVERY 8 HOURS SCHEDULED, First dose on Sat08/09/14 at 1530, Until Discontinued, Maximum dose of acetaminophen is 4000 mg from all sources in 24 hours., Routine 1530 (Not Given - Provider: Nadja Maria RN - Reason: See comment - Comment: pt sleeping)2101 (Given - Provider: Magdiel Yip RN) 0615 (Given - Provider: Magdiel Yip RN)1329 (Given - Provider: Tennille Lan RN) aspirin EC tablet 325 mg 325 mg, Oral, 2 TIMES DAILY, First dose on Sat08/10/14 at 0900, Until Discontinued, Routine 0815 (Given - Provid er: Tennille Lan RN) ceFAZolin (ANCEF) 1g in dextrose 5% 50mL (COMPLETED) 1,000 mg (1 g), Intravenous, EVERY 8 [...] Unit), Indication for (Active or Suspected): Prophylaxis 1531 (Given - Provider: Nadja Maria RN) 0023 (Given - Provider: Magdiel Yip RN)0706 (Given - Provider: Magdiel Yip RN) celecoxib (celeBREX) capsule 400 mg (COMPLETED) 400 mg, Oral, ONCE, 1 dose, On Sat08/09/14 at 1145, Administer on arrival to Same Day Program, Day of Surgery (Day of Procedure), Routine 1145 (Given - Provider: Alvina Doherty RN) gabapentin (NEURONTIN) capsule 600 mg (COMPLETED) 600 mg, Oral, ONCE, 1 dose, On Sat08/09/14 at 1145, Administer on arrival in Same Day Program, Day of Surgery (Day of Procedure), Routine 1145 (Given - Provider: Alvina Doherty RN) hydrochlorothiazide (HYDRODIURIL) tablet 25 mg (CANCELED) 25 mg, Oral, EVERY MORNING, First dose on Sat08/10/14 at 0700, Until Discontinued, Routine 0615 (Given - Provid er: Magdiel Yip RN) multivitamin Pshj-Ab-MT-Min (THERAPEUTIC-M) 27-0.4 mg tablet 1 tablet (CANCELED) 1 tablet, Oral, DAILY, First dose on Sat08/09/14 at 2000, Until Discontinued 2102 (Given - Provider: Magdiel Yip RN) 0816 (Given - Provider: Tennille Lan RN) oxyCODONE (OxyCONTIN) CR tablet 10 mg (COMPLETED) 10 mg, Oral, ONCE, On Sat08/09/14 at 1145, 1 dose, Administer on arrival in Same Day Program, Day of Surgery (Day of Procedure) 1145 (Given - Provider: Alvina Doherty RN) polyethylene glycol (MIRALAX) packet 17 g (CANCELED) 17 g, Oral, 2 TIMES DAILY, First dose on Sat08/09/14 at 2100, Until Discontinued, Administer if needed per patient's routine or if no bowel movement within 48 hours, Routine 2100 (Given - Provider: Magdiel Yip RN) 0814 (Given - Provider: Tennille Lan RN) potassium chloride (K-DUR/KLOR-CON) extended release tablet 20 mEq (CANCELED) 20 mEq, Oral, 2 TIMES DAILY, First dose on Sat08/09/14 at 2100, Until Discontinued, 20 mEq tablet may be dissolved in water for administration, Routine 2100 (Given - Provider: Magdiel Yip RN - Comment: Pill popped through barcode.) 0815 (Given - Provider: Tennille Lan RN) senna-docusate (PERICOLACE) 8.6-50 mg per tablet 1-4 tablet 1-4 tablet, Oral, 2 TIMES DAILY, First dose on Sat08/09/14 at 2100, Until Discontinued, Start with 1 tablet or liquid equivalent orally twice daily and titrate up to achieve: 1. One bowel movement at least every 48 hours, AND 2. Without straining, Routine 2100 (Given - Provider: Magdiel Yip, SIOBHAN) 0815 (Given - Provider: Tennille Lan, SIOBHAN) sodium chloride 0.9 % flush 5 mL (CANCELED) 5 mL, Intravenous, EVERY 12 HOURS, First dose on Sat08/09/14 at 2100, Until Discontinued, Routine 2102 (Given - Provider: Magdiel Yip, SIOBHAN) 0817 (Given - Provider: Tennille Lan, SIOBHAN) tranexamic acid (CYKLOKAPRON) 1,060 mg in sodium chloride 0.9% 110.6 mL (COMPLETED) 1,060 mg (15 mg/kg/dose ? 70.5 kg), Intravenous, ONCE, 1 dose, On Sat08/09/14 at 1145, Administer over 30 Minutes, Dilute tranexamic acid dose in 100 mL sodium chloride 0.9% prior to administration. For patients less than or equal to 200 kg infuse over 30 minutes. For patients greater than 200 kg infuse over 60 minutes., Day of Surgery (Day of Procedure) 1232 (New Bag - Provider: Srinivasan Kohler MD - Comment: over 30 min) Continuous Medication Order 08/08/2014 08/09/2014 08/10/2014 lactated ringers infusion 1,000 mL (CANCELED) 1,000 mL, at 100 mL/hr, Intravenous, CONTINUOUS, Starting on Sat08/09/14 at 1530, Until Sat08/10/14 at 1720 1514 (New Bag - Provider: Nadja Maria RN) 0026 (New Bag - Provider: Magdiel Yip, SIOBHAN)0618 (Stopped - Provider: Magdiel Yip, SIOBHAN) PRN Medication Order 08/08/2014 08/09/2014 08/10/2014 bacitracin injection (CANCELED) ONCE PRN, Starting on Sat08/09/14 at 1305, Until Sat08/09/14 at 1504, Intra-Operative (Intra-Procedure), Routine 1305 (Given - Provider: Neri Le MD - Comment: 50,000units bacitractin mixed with NaCl 3,000ml) bisacodyl (DULCOLAX) suppository 10 mg 10 mg, Rectal, DAILY PRN, Starting on Sat08/09/14 at 1721, Until Sat08/10/14 at 1720, Constipation, Administer if needed per patient's routine or if no bowel movement within 48 hours, Routine BUpivacaine-EPINEPHrine 0.25 %-1:200,000 injection (CANCELED) ONCE PRN, Starting on Sat08/09/14 at 1306, Until Sat08/09/14 at 1504, Intra-Operative (Intra-Procedure), Routine 1306 (Given - Provider: Neri Le MD - Comment: 0.25% Bupivicaine with Epi 1:200,000 mixed with Ketorolac 30mg and Clonidine 500mcg.) cloNIDine injection (CANCELED) ONCE PRN, Starting on Sat08/09/14 at 1307, Until Sat08/09/14 at 1504, Intra-Operative (Intra-Procedure), Routine 1307 (Given - Provider: Neri Le MD - Comment: 0.25% Bupivicaine with Epi 1:200,000 mixed with Ketorolac 30mg and Clonidine 500mcg.) HYDROmorphone (DILAUDID) 0.2 mg/mL 10mL Syringe (IR ONLY) (CANCELED) 0.2-0.4 mg, Intravenous, EVERY 5 MIN PRN, Pain, Starting on Sat08/09/14 at 1503, Until Sat08/09/14 at 1607, For moderate pain give: 0.2 mg every 5 minute prn For severe pain give: 0.4 mg every 5 minutes prn Maximum dose: 4 mg per hour Hold for respiratory rate less than 10 per minute., PACU Recovery 1544 (Given - Provider: Nadja Maria RN) ketorolac (TORADOL) injection (CANCELED) ONCE PRN, Starting on Sat08/09/14 at 1307, Until Sat08/09/14 at 1504, Pain, Intra-Operative (Intra-Procedure), Routine 1307 (Given - Provider: Neri Le MD - Comment: 0.25% Bupivicaine with Epi 1:200,000 mixed with Ketorolac 30mg and Clonidine 500mcg.) oxyCODONE (ROXICODONE) immediate release tablet 5 mg(Linked Group 1) 5 mg, Oral, EVERY 4 HOURS PRN, Starting on Sat08/09/14 at 1503, Until Sat08/10/14 at 1720, Pain, mild pain, For Mild pain. Do not exceed 15 mg in 4 hours. If pain not relieved, call provider, Routine 0614 (Given - Provid er: Magdiel Yip RN) Linked Groups Order Group 1: oxyCODONE (ROXICODONE) immediate release tablet 5 mgJump to med 5 mg, Oral, EVERY 4 HOURS PRN, Starting on Sat08/09/14 at 1503, Until Sat08/10/14 at 1720, Pain, mild pain, For Mild pain. Do not exceed 15 mg in 4 hours. If pain not relieved, call provider, Routine Or oxyCODONE (ROXICODONE) immediate release tablet 10 mg (CANCELED) 10 mg, Oral, EVERY 4 HOURS PRN, Starting on Sat08/09/14 at 1503, Until Sat08/10/14 at 1720, Pain, moderate pain, For Moderate pain. Do not exceed 15 mg in 4 hours. If pain not relieved, call provider., Routine Or oxyCODONE (ROXICODONE) immediate release tablet 15 mg (CANCELED) 15 mg, Oral, EVERY 4 HOURS PRN, Starting on Sat08/09/14 at 1503, Until Sat08/10/14 at 1720, Pain, severe pain, For severe pain. Do not exceed 15 mg in 4 hours. If pain not relieved, call provider., Routine documented in this encounter Care Teams Taker Down Relationship Specialty Start Date End Date Delmis Rudd MD [address] [place] [address] PCP - General 09/19/10 08/24/18 documented as of this encounter
--- OUTSIDE RECORDS SUMMARY | 2024-07-03 01:44 | XMS_ITS | Encounter Summary ---
[place] [address] Care Team Providers Care Special Order Jeweler Name Role Phone Delmis Dueñas MD Primary Care Provider [phone] Encounter Details Date Type Department Care Team (Latest Contact Info) Description 08/03/2014 11:00 AM EDT Clinical [place] [id number] Post-traumatic osteoarthritis of right hip Social History [...] documented in this encounter Progress Notes * Ale Ricketts RN - 08/03/2014 11:01 AM [...] from coffee intake. Pre-operative instruction booklet reviewed. Patient verbalizes a good understanding of all information reviewed. PLAN: Testing: Blood and urine. EKG. CXR Special medication instructions: n/a Procedure date: 08-09-[address] Mo documented in this encounter Plan of Treatment Not on file documented as of this encounter Procedures Procedure Name Priority Date/Time Associated Diagnosis Comments EKG 12-LEAD Routine 08/03/2014 11:13 AM EDT Post-traumatic osteoarthritis of right hip documented in this encounter Results * EKG 12 Lead (08/03/2014 11:13 AM EDT) Ventricular rate 71 BPM MUSE SYSTEM Atrial Rate 71 BPM MUSE SYSTEM P-R Interval 164 ms MUSE SYSTEM QRS Duration 86 ms MUSE SYSTEM Q-T Interval 398 ms MUSE SYSTEM QTC Calculated (Bezet) 432 ms MUSE SYSTEM Calculated P [place] 22 degrees MUSE SYSTEM Calculated R [place] 1 degrees MUSE SYSTEM Calculated T [place] 7 degrees MUSE SYSTEM INTERPRETATION Normal sinus rhythm Normal ECG No previous ECGs available Confirmed by MD RAJ, LUTHER ([id number]) on 08/03/2014 2:38:57 PM MUSE SYSTEM 08/03/2014 11:1 3 AM EDT 08/03/2014 2:38 PM EDT Neri Mo MD ECG ORDERABLES MUSE SYSTEM documented in this encounter Visit Diagnoses Diagnosis Post-traumatic osteoarthritis of right hip Secondary localized osteoarthrosis, pelvic region and thigh documented in this encounter Care Teams Special Order Jeweler Relationship Specialty Start Date End Date Delmis Dueñas MD [address] [place] [address] PCP - General 09/19/10 08/24/18 documented as of this encounter
--- OUTSIDE RECORDS SUMMARY | 2024-07-03 01:44 | XMS_ITS | Encounter Summary ---
[place] [address] Care Team Providers Care Vice President Lending Name Role Phone Delmis Dueñas MD Primary Care Provider [phone] Encounter Details Date Type Department Care Team (Latest Contact Info) Description 09/17/2013 7:48 AM EST - 09/17/2013 11:59 PM EST Hospital En[place] [id number] CLINIC, Delmis Menon MD [address] [place], [place] [id number] Abnormal mammogram, unspecified Discharge Disposition: Home Social History Tobacco Use [...] Name Priority Date/Time Associated Diagnosis Comments MAMMO CALL BACK DIAGNOSTIC EXTRA VIEW UNILATERAL Routine 09/17/2013 9:23 AM EST Abnormal mammogram, unspecified documented in this encounter Results * Mammo call back diagnostic extra view unilateral (09/17/2013 9:23 AM EST) Anatomical Region Laterality Modality Breast N/A Mammography 09/17/2013 9:23 AM EST Narrative 09/17/2013 4:35 PM EST LEFT DIAGNOSTIC MAMMOGRAM AND LEFT BREAST ULTRASOUND ON 09/17/13: ?? DIAGNOSTIC IMAGING SUMMARY: ?? LEFT BREAST LESION 1: PROBABLY BENIGN (BIRADS Category 3). ?? Finding: Cluster of cysts with immediately adjacent vessel. ?? Size: 4mm by ultrasound. ?? Location: 1000, 6cm from the nipple. ?? Recommendation: This lesion is felt to represent a cluster of cysts with an immediately adjacent vessel. Given the presence of this vessel, short interval follow-up with repeat ultrasound and mammography at the discretion of the radiologist is recommended in six months' time. This has been scheduled for 03/19/14 at 8:20am. ?? These results were discussed with the patient at the time of the examination. ?? Images were also reviewed by a second radiologist who concurs. ?? Preliminary report E-mailed to Dr. Delmis Dueñas on 09/17/13. ?? NARRATIVE: ?? CLINICAL INDICATION: Callback from screening mammogram dated 09/11/13 for a question of a mass in the Left breast. ?? COMPARISON: Bilateral screening mammogram 09/11/13, 09/05/12, 08/31/11, 08/25/10, 08/19/09 and 08/13/08. ?? TECHNIQUE: Additional views of the Left breast were obtained in the Left CC and ML projections with 3D tomosynthesis as well as Left ML, Left mag CC and Left mag ML views (x2) with direct digital capture. Targeted ultrasound of the Left breast was performed. ?? FINDINGS: Initial 2D magnification images re-demonstrate a 5mm round mass with well-circumscribed margins at approximately the 1000 position, 5cm from the nipple. ? On the ML tomographic image there is a suggestion of a fatty hilum which is not seen on the CC view. ? Targeted ultrasound of the Left breast was performed at the 1000 position, 6cm from the nipple which demonstrates a predominantly anechoic mass measuring 4 x 3 x 2mm. Perez scale images have the appearance of a cluster of cysts. With color doppler there is internal flow seen within a vessel at the deep margin. As seen on the mammogram, there are prominent vessels immediately adjacent to and superficial to this lesion. There is no definite solid component identified and this lesion is felt to represent a cluster of cysts with a small vessel immediately adjacent as opposed to a complex cystic/solid lesion. ? Procedure Note Sabrina Awad MD - 09/17/2013 LEFT DIAGNOSTIC MAMMOGRAM AND LEFT BREAST ULTRASOUND ON 09/17/13: DIAGNOSTIC IMAGING SUMMARY: LEFT BREAST LESION 1: PROBABLY BENIGN (BIRADS Category 3). Finding: Cluster of cysts with immediately adjacent vessel. Size: 4mm by ultrasound. Location: 1000, 6cm from the nipple. Recommendation: This lesion is felt to represent a cluster of cysts withan immediately adjacent vessel. Given the presence of this vessel, shortinterval follow-up with repeat ultrasound and mammography at the discretion of the radiologist is recommended in six months' time. This has been scheduledfor 03/19/14 at 8:20am. These results were discussed with the patient at the time of theexamination. Images were also reviewed by a second radiologist who concurs. Preliminary report E-mailed to Dr. Delmis Dueñas on 09/17/13. NARRATIVE: CLINICAL INDICATION: Callback from screening mammogram dated 09/11/13 fora question of a mass in the Left breast. COMPARISON: Bilateral screening mammogram 09/11/13, 09/05/12, 08/31/11,08/25/10, 08/19/09 and 08/13/08. TECHNIQUE: Additional views of the Left breast were obtained in the LeftCC and ML projections with 3D tomosynthesis as well as Left ML, Left mag CC andLeft mag ML views (x2) with direct digital capture. Targeted ultrasound of theLeft breast was performed. FINDINGS: Initial 2D magnification images re-demonstrate a 5mm round masswith well-circumscribed margins at approximately the 1000 position, 5cm fromthe nipple. On the ML tomographic image there is a suggestion of a fatty hilum whichis not seen on the CC view. Targeted ultrasound of the Left breast was performed at the 1000 position,6cm from the nipple which demonstrates a predominantly anechoic mass measuring4 x 3 x 2mm. Perez scale images have the appearance of a cluster of cysts. With color doppler there is internal flow seen within a vessel at the deepmargin. As seen on the mammogram, there are prominent vessels immediately adjacentto and superficial to this lesion. There is no definite solid componentidentified and this lesion is felt to represent a cluster of cysts with a smallvessel immediately adjacent as opposed to a complex cystic/solid lesion. Paola Meade MD IMG MAMMO ORDERABLES documented in this encounter Visit Diagnoses Diagnosis Abnormal mammogram, unspecified documented in this encounter Care Teams Vice President Lending Relationship Specialty Start Date End Date Delmis Dueñas MD [address] [place] [address] PCP - General 09/19/10 08/24/18 documented as of this encounter
--- OUTSIDE RECORDS SUMMARY | 2024-07-03 01:44 | XMS_ITS | Encounter Summary ---
Author Organization [facility] [place] [address] Care Team Providers Care Prenatal Teacher Name Role Phone Delmis Dueñas MD Primary Care Provider [phone] Encounter Details Date Type Department Care Team (Late st Contact Info) Description 05/10/2014 Orders Only [place] [address] Neri Mo MD [facility] [address] [place] [address] Pain in right hip (Primary Dx) Social History Tobacco Use Types Packs/Day Years [...] on file documented as of this encounter Results * XR pelvis AP and hip 2 views of 1 hip (06/23/2014 8:51 AM EDT) Anatomical Region Laterality Modality Pelvis, Hip N/A Radiographic Kareen ging 06/23/2014 8:51 AM EDT Narrative 06/23/2014 9:04 AM EDT Examination AP PELVIS AND 2 VIEWS ONE HIP/RIGHT Clinical History RT HIP PAIN S/P DISLOCATION 20 YRS AGO 2ND OP Comparison [facility] radiographs from March 2014. Technique Findings Osteoarthropathy of the right hip is represented by diffuse joint space narrowing, subchondral sclerosis, subchondral cystic change and small osteophyte formation. ??The right femoral head is deformed, aspherical and smaller than that of the left. ??The femoral neck is also short. ??The configuration of the right acetabular remains normal and is not shallow. The left hip joint space is preserved with but with small osteophyte formation. Incidentally noted is osteoarthropathy of both SI joints represented by joint space narrowing and subchondral sclerosis. ??There is also spondylosis of the lower lumbar spine with facet arthropathy. Impression ? 1. Osteoarthropathy of the right hip with diffuse loss of right hip joint space. ? 2. Deformed right femoral head likely is related to remote injury such as avascular necrosis or Legg Perthes. Procedure Note Dianne Olsen MD - 06/23/2014 Examination AP PELVIS AND 2 VIEWS ONE HIP/RIGHT Clinical History RT HIP PAIN S/P DISLOCATION 20 YRS AGO 2ND OP Comparison [facility] radiographs from March 2014. Technique Findings Osteoarthropathy of the right hip is represented by diffuse joint space narrowing, subchondral sclerosis, subchondral cystic change and small osteophyte formation. The right femoral head is deformed, aspherical and smaller than that of the left. The femoral neck is also short. The configuration of the right acetabular remains normal and is not shallow. The left hip joint space is preserved with but with small osteophyteformation. Incidentally noted is osteoarthropathy of both SI joints represented byjoint space narrowing and subchondral sclerosis. There is also spondylosis ofthe lower lumbar spine with facet arthropathy. Impression 1. Osteoarthropathy of the right hip with diffuse loss of right hipjoint space. 2. Deformed right femoral head likely is related to remote injurysuch as avascular necrosis or Legg Perthes. Neri Mo MD IMG DX ORDERABLES documented in this encounter Visit Diagnoses Diagnosis Pain in right hip- Primary Pain in joint, pelvic region and thigh Pain in right hip Pain in joint, pelvic region and thigh documented in this encounter Care Teams Prenatal Teacher Relationship Specialty Start Date End Date Delmis Dueñas MD [address] [place] [address] PCP - General 09/19/10 08/24/18 documented as of this encounter
--- OUTSIDE RECORDS SUMMARY | 2024-07-03 01:44 | XMS_ITS | Encounter Summary ---
[place] [address] Care Team Providers Care Rotary Engine Assembler Name Role Phone Delmis Dueñas MD Primary Care Provider [phone] Reason for Visit * Reason Onset Date Comments Referral 05/03/2014 Encounter Details Date Type Department Care Team (Late st Contact Info) Description 05/03/2014 Telephone [place] [id number] Neri Mo MD [facility] [place] [address] Referral Social History Tobacco Use Types Packs/Day Years Used Date Smoking Tobacco: Never Alcohol Use Standard Drinks/Week Comments Yes 4 (1 standard drink = 0.6 oz pur e alcohol) Sex and Gender Information Value Date Recorded Sex Assigned at Not on file Gender Identity Not on file Sexual Orientation Not on file documented as of this encounter Miscellaneous Notes * Telephone Encounter - Latoya Chapman - 05/03/2014 10:46 AM EDT Ask patient to verify the following: Full name: Esthela Padron : 1955 Phone number: [phone] [address]ailing address: [address] [facility] [address] [facility] [address] [facility] [address] Intake:R HIP PAIN S/P DISLOCATION OVER 20 YEARS AGO. PATIENT TO CALL BACK WHEN SHE MAKES A DECISIONTO SEE US OR NOT. Is this an injury that happened:YES ?? At work? ?? Playing a sport? ?? If yes to either, what is DOI?May, Tell me how this how long you've had these symptoms? SINCE END OF December, Has anyone ever seen you before for this issue?YES DR. TAYLOR BLACKMON IN [place], [place] Have you tried:YES ?? Physical Therapy ?? INJECTION YES ?? Other therapies Have you had any of the following studies for this issue?YES ?? X-Ray YES ?? MRI ?? CT Scan ?? LABS Have you seen an Orthopaedic surgeon for the this issue?YES If YES: Who did you see? [facility] IN [place], [place] Where were you seen (facility)? [facility], IN [place], [place]. When? Phone # Fax# Have you ever had surgery for this issue? If YES and different than above: Who performed surgery? Where did you have the surgery (facility)? When? Phone # Fax# If patient is implanted with hardware fixation or joint prosthesis retrieve OPERATIVE REPORT and IMPLANT STICKERS. documented in this encounter Plan of Treatment Not on file documented as of this encounter Visit Diagnoses Not on filedocumented in this encounter Care Teams Rotary Engine Assembler Relationship Specialty Start Date End Date Delmis Dueñas MD [address] [place] [address] PCP - General 09/19/10 08/24/18 documented as of this encounter
--- OUTSIDE RECORDS SUMMARY | 2024-07-03 01:44 | XMS_ITS | Encounter Summary ---
[place] [address] Care Team Providers Care Protective Signal Operations Supervisor Name Role Phone Delmis Dueñas MD Primary Care Provider [phone] Reason for Visit * Reason Comments Right Hip Pain Encounter Details Date Type Department Care Team (Latest Contact Info) Description 08/03/2014 2:00 PM EDT Office [place] [id number] Neri Le MD [facility] [place] [address] Post-traumatic osteoarthritis of right hip (Primary Dx); DJD (degenerative joint disease) of hip Discharge Disposition: Home Social History Tobacco Use [...] (158 lb 10 oz) 08/03/2014 2:51 PM E DT Height 147.3 cm (4' 10) 08/03/2014 2:51 PM EDT Body Mass Index 33.15 08/03/2014 2:51 PM EDT documented in this encounter Progress Notes * Neri Le MD - 08/03/2014 3:37 PM EDT I.D.: Esthela Padron is a 59 [...] cane. Stairs climbing ability: 2/1 with bannister. Shoesand socks: with difficulty. Sitting ability: elevated levels preferred. Ability to use public transp ortation: able. SIGNIFICANT MEDICAL COMORBIDITIES: Patient Active Problem [...] , some narrowing ; 3= moderate osteophytes, significantnarrowing, mild deformity; 4= large osteophytes, marked narrowing, [...] therapy have been exhausted. We talked about the usual recovery. The acute perioperative phase extending to 4-6 weeks postoperatively. The sub-acute phase extending to approximately 12 weeks postoperatively. And finally talked about long-term enedelia very being 12-18 months. We talked about reasonable expectations at all of those milestones. We talked about the importance of frequent and regular mobilization / ambulation. We talked about hip-girdle muscle strengthening of gluteals, abductors and quads. We talked about bess-incisional scar formation as well as stiffness. We talked about the link between leg-length and dislocation and how sometimes the limb is intentionally lengthened in order to re-establish an appropriate amount of soft tissue tension to maintain the hip reduced. We talked about followup being at the 4-6 week period with x-ray, at the 3 months period, 6 month period if needed, at the one year anniversary of surgery withx-rays. Thereafter, lifetime follow up with with x-ray occuring at the one to 2 year interval. We talked about prophylactic antibiotic coverage prior to dental visits, likely for lifetime as the recommendation continues to change. We talked about joint replacement surgery being a option to relieve pain but that range of motion is often predicted on preoperative range of motion. The risks and benef its were outlined and the timing of the [...] may or may not require transfusion), infection, deep venous thrombosis, pulmonary embolus, prosthetic failure, loosening, prosthetic fracture, femur or pelvic fracture, dislocation, leg-length inequality, persistent pain, medical complications (including cardiac, respiratory and neurologic complications), anaesthetic complications, and . The patient seemed to understand the nature of this procedure's risks. We also discussed the likely benefit of improved stride length, improved range of motion, decreased pain, decreased need for pain medications and decrease functional limitations. The patient is aware that it would take on average three to four days in the hospital, followed by approximately 12-18 months to full rehabilitation. We discussed DNR status and the patient is a full code. We also reviewed their preferences regarding use of blood products and confirmed that while we would endeavor to minimize the risks of needing any transfusions, if circumstances were such that one ormore were indeed required, she did NOT refuse. Further questions were solicited from the patient and answered in great detail. Again, despite these risks, the verbalized a desire to proceed accordingly. [...] recommendation was for ASA 325mg PO BID x 6 weeks as our postoperative prophylactic agent. I discussed with them the possible discharge scenarios including going home versus needing to go toa rehab facility. We will make that determination after seeing how well her mobilization is progressing. I ensured that the patient has the needed samples of hibiclens wash to use both the night before and the morning of the anticipated surgery. Please note that 20 minutes of this 30-minute patient encounter was spent on iibu-bd-axac counseling regarding the patient's diagnosis, its etiology, the multiple treatment options available, and therisks and benefits of each thereof. In particular, considerable time spent discussing surgical plan, techniques as well as implant related issues. documented in this encounter Plan of Treatment Not on file documented as of this encounter Procedures Procedure Name Priority Date/Time Associated Diagnosis Comments URINALYSIS WITH REFLEX CULTURE Routine 08/03/2014 11:02 AM EDT Post-traumatic osteoarthritis of right hip URINE CULTURE Routine 08/03/2014 11:02 AM EDT Post-traumatic osteoarthritis of right hip HEMOGRAM Routine 08/03/2014 11:00 AM EDT Post-traumatic osteoarthritis of right hip DIFFERENTIAL, AUTOMATED Routine 08/03/2014 11:00 AM EDT Post-traumatic osteoarthritis of right hip TYPE AND SCREEN, SDP (FUTURE SURGERY, [facility] SAME DAY PROGRAM ONLY) Routine 08/03/2014 11:00 AM EDT Post-traumatic osteoarthritis of right hip ABO/RH TYPING Routine 08/03/2014 11:00 AM EDT Post-traumatic osteoarthritis of right hip APTT Routine 08/03/2014 11:00 AM EDT Post-traumatic osteoarthritis of right hip SEDIMENTATION RATE Routine 08/03/2014 11 :00 AM EDT Post-traumatic osteoarthritis of right hip PROTHROMBIN TIME Routine 08/03/2014 11:0 0 AM EDT Post-traumatic osteoarthritis of right hip CBC (WITH DIFF) Routine 08/03/2014 11:00 AM EDT Post-traumatic osteoarthritis of right hip ANTIBODY SCREEN Routine 08/03/2014 11:00 AM EDT Post-traumatic osteoarthritis of right hip CRP, CARDIAC RISK (HS CRP) Routine 08/03/2014 11:00 AM EDT Post-traumatic osteoarthritis of right hip PROTEIN, TOTAL Routine 08/03/2014 11:00 AM EDT Post-traumatic osteoarthritis of right hip HEMOGLOBIN A1C Routine 08/03/2014 11:00 AM EDT Post-traumatic osteoarthritis of right hip ALBUMIN LEVEL Routine 08/03/2014 11:00 AM EDT Post-traumatic osteoarthritis of right hip BASIC METABOLIC PANEL Routine 08/03/2014 11:00 AM EDT Post-traumatic osteoarthritis of right hip documented in this encounter Results * Urine culture Clean Catch Urine (08/03/2014 11:02 AM EDT) Urine Culture ? Patient Name: ESTHELA PADRON ?Ordered By: NERI LE ? MR#: [id number] ?LOC: ??3C ? /Sex: ?? 6 (59 years), ? Female ? PROCEDURE: Urine Culture ?SOURCE: U CC ? COLLECTED: 08/03/2014 11:02 ? STARTED: 08/03/2014 11:22 ? FINAL REPORT ? Final Report ? Verified: 07:14 ? No growth (Less than 1,000 cfu/ml). ? ____ CERNER MILLENNIUM Urine specimen obtained by clean catch procedure (specimen) 08/03/2014 11:02 AM EDT 08/03/2014 11:22 AM EDT Narrative Resulting Agency Comment Spec In Lab Neri Le MD MICROBIOLOGY - GENER AL ORDERABLES CERNER MILLENNIUM * (ABNORMAL) Urinalysis with microscopic (08/03/2014 11:02 AM EDT) Glucose, Urine Dipstick Negative Negative mg/dL CERNER MILLENNIUM Protein, Urine Dipstick Negative Negative mg/dL CERNER MILLENNIUM Bilirubin, Urine Dipstick Negative Negative mg/dL CERNER MILLENNIUM Comment: Clinical correlation required for positive Urine Bilirubin results as false positive may occur with some drugs and drug related products. If a false positive is suspected a serum total bilirubin should be considered if clinically indicated. Urobilinogen, Urine Dipstick Normal Normal mg/dL CERNER MILLENNIUM pH, Urn (dipstick) 7.0 5.0 - 8.0 CERNER MILLENNIUM Blood, Urine Dipstick Negative Negative mg/dL CERNER MILLENNIUM Ketone, Urine Dipstick Negative Negative mg/dL CERNER MILLENNIUM Nitrite, Urine Dipstick Negative Negative CERNER MILLENNIUM Leukocytes, Urine Dipstick Negative Negative mcL CERNER MILLENNIUM Appearance, Urine Dipstick Clear Clear CERNER MILLENNIUM Specific [place] Urine Automated 1.012 1.002 - 1.030 CERNER MILLENNIUM Color, Urine Dipstick Yellow Yellow CERNER MILLENNIUM RBC, Urine 2 0 - 4 /HPF CERNER MILLENNIUM WBC, Urine <1 0 - 5 /HPF CERNER LESLIEENNIUM Squamous Epithelial Cells, Urine <1 <=4 /HPF CERNER LESLIEENNIUM Calcium Oxalate Crystal, Urine Rare(A) None /HPF JARAD NELSONENNIUM Urine specimen (specimen) 08/03/2014 11:02 AM EDT 08/03/2014 11:15 AM EDT Narrative Resulting Agency Comment Spec In Lab Neri Le MD URINE ORDERABLES Performing Organization Address [facility] Co de Phone Number JARAD MARROQUINIUM * Antibody screen (08/03/2014 11:00 AM EDT) Ab Screen Interp Negative JARAD MARROQUINIUM Expires at [id number] on: [id number] JARAD MARROQUINIUM Blood specimen (specimen) 08/03/2014 11:00 AM EDT 08/03/2014 11:05 AM EDT Narrative Resulting Agency Comment Spec In Lab Neri Le MD BLOOD BANK LAB ORDER JL Performing Organization Address [facility] de Phone Number JARAD MARROQUINIUM * ABO/Rh Typing (08/03/2014 11:00 AM EDT) ABORH Type A Pos JARAD MARROQUINIUM Blood specimen (specimen) 08/03/2014 11:00 AM EDT 08/03/2014 11:05 AM EDT Narrative Resulting Agency Comment Spec In Lab Neri Le MD BLOOD BANK LAB ORDER JL Performing Organization Address [facility] de Phone Number JARAD MARROQUINIUM * Differential, Automated (08/03/2014 11:00 AM EDT) Neutrophil % 66.9 % CERNER MILLENNIUM Neutrophil Absolute 4.26 1.50 - 6.30 x10(3)/mcL CERNER MILLENNIUM Lymph % 25.6 % CERNER MILLENNIUM Lymphocytes Abs 1.6 1.0 - 3.6 x10(3)/mcL CERNER MILLENNIUM Monocyte % 6.1 % CERNER MILLENNIUM Monocyte Abs 0.4 0.2 - 1.0 x10(3)/mcL CERNER MILLENNIUM Eos % 1.1 % CERNER MILLENNIUM Eosinophils Abs 0.1 0.0 - 0.5 x10(3)/mcL CERNER MILLENNIUM Basophil % 0.3 % CERNER MILLENNIUM Baso Absolute 0.0 0.0 - 0.2 x10(3)/mcL CERNER MILLENNIUM Immature Gran % 0.00 % CERN ER MILLENNIUM Comment: Immature granulocytes(IG's)percentage and absolute count will include metamyelocytes, myelocytes, and promyelocytes. Blood smears from CBCs yielding IG's will be scanned manually for concordance. If this scan disagrees with the automated IG or if promyelocytes are noted, a manual differential will be performed. Immature Gran Absolute 0.00 0.00 - 0.05 x10(3)/mcL CERNER MILLENNIUM Blood specimen (specimen) 08/03/2014 11:00 AM EDT 08/03/2014 11:08 AM EDT Narrative Resulting Agency Comment Spec In Lab Neri Le MD HEMATOLOGY ORDERABLE S CERNER MILLENNIUM * Hemogram (08/03/2014 11:00 AM EDT) White Blood Cell 6.4 4.0 - 10.0 x10(3)/mcL CERNER MILLENNIUM Red Blood Cell 4.61 3.93 - 5.22 x10(6)/mcL CERNER MILLENNIUM Hemoglobin 14.6 11.2 - 15.7 gm/dL CERNER MILLENNIUM Hematocrit 42.0 34.0 - 45.0 % CERNER MILLENNIUM Mean Cell Volume 91.1 79.0 - 94.0 fL CERNER MILLENNIUM Mean Cell Hemoglobin 31.7 26.6 - 32.2 pg CERNER MILLENNIUM Mean Cell Hemoglobin Concentration 34.8 32.0 - 36.5 gm/dL CERNER MILLENNIUM Platelet 312 145 - 370 x10(3)/mcL CERNER MILLENNIUM RDW Standard Deviation 40.5 35.0 - 46.0 fL CERNER MILLENNIUM RDW coefficient of variation 12.2 10.9 - 14.4 % JARAD ALBARRAN Mean Platelet Volume 10.3 9.0 - 12.0 fL DOMINGOTRAN ALBARRAN Blood specimen (specimen) 08/03/2014 11:00 AM EDT 08/03/2014 11:08 AM EDT Narrative Resulting Agency Comment Spec In Lab Neri Le MD HEMATOLOGY ORDERABLE S JARAD ALBARRAN * (ABNORMAL) Hemoglobin A1c (08/03/2014 11:00 AM EDT) Hemoglobin A1c 6.0(H) <=5.6 % ERLINDA Nick NELSONTHUAN Comment: Reference Range: 4.3 - 5.6% 5.7 - 6.4% - Increased Risk of Developing Diabetes Mellitus 6.5% - Consistent with diagnosis of Diabetes Mellitus In the absence of hyperglycemia (i.e. plasma glucose > 200 mg/dL) or classic symptoms of hyperglycemia a repeat measurement of HbA1c should be performed on a separate sample to confirm the diagnosis. Diagnosis and Classification of Diabetes Mellitus, Diabetes Care 2013; 36: Suppl. 1, S67-40 Estimated Average Glucose 126 mg/dL [facility] Comment: eAG equivalents for HbA1c percentages: HbA1c(%) ?eAG(mg/dL) 6.0 ?126 6.5 ?140 7.0 ?154 7.5 ?169 8.0 ?183 8.5 ?197 9.0 ?212 9.5 ?226 10.0 ? 240 Limitations: The eAG calculation has not been validated on women, individuals below 18 years old and above 70 years old, and individuals with hemoglobinopathies. Additional resources are available on the ADA website: [email or web address].[email or web address] Srinivasan MAYO, Yaya J, Jina R, et al. ??Translating the A1C assay into estimated average glucose values. ??Diabetes Care 2008:31(8):4696-4410. Blood specimen (specimen) 08/03/2014 11:00 AM EDT 08/03/2014 11:08 AM EDT Narrative Resulting Agency Comment Spec In Lab Neri Le MD CHEMISTRY ORDERABLES Performing Organization Address [facility] Co de Phone Number [facility] * Protein, total (08/03/2014 11:00 AM EDT) Pathologist [facility] Protein, Total 8.0 6.4 - 8.3 gm/dL [facility] Blood specimen (specimen) 08/03/2014 11:00 AM EDT 08/03/2014 11:08 AM EDT Narrative Resulting Agency Comment Spec In Lab Neri Le MD CHEMISTRY ORDERABLES Performing Organization Address [facility] de Phone Number [facility] * Albumin Level (08/03/2014 11:00 AM EDT) Pathologist [facility] Albumin 4.5 3.2 - 5.2 gm/dL [facility] Blood specimen (specimen) 08/03/2014 11:00 AM EDT 08/03/2014 11:08 AM EDT Narrative Resulting Agency Comment Spec In Lab Neri Le MD CHEMISTRY ORDERABLES Performing Organization Address [facility] Co de Phone Number [facility] * High Sensitivity CRP (08/03/2014 11:00 AM EDT) C-Reactive Protein High Sensitivity 1.1 mg/L [facility] Comment: Interpretations: 1) For accurate cardiac risk assessment, the average of 2 values >2 weeks apart should be obtained (ref 1&2). A value >10 mg/L indicates an inflammatory condition, concentrations >10 mg/L should not be used for cardiac risk assessment. ?<1.0 mg/L: low risk ?1.0 - 3.0 mg/L: moderate risk ?>3.0 mg/L: high risk groups for future cardiovascular events 2) The general reference range of apparently healthy individuals using this test is <5.0 mg/L (derived from the test package insert) References: 1. Jayesh RESENDIZ et. al. ??AHA/CDC Scientific Statement: Markers of Inflammation and Cardiovascular Disease. ??Circulation 2003; 107:499-511 2. Ridker PM. ??Clinical applications of C-reactive protein for cardiovascular disease detection and prevention. ??Circulation 2003; 107:363-369 Blood specimen (specimen) 08/03/2014 11:00 AM EDT 08/03/2014 11:08 AM EDT Narrative Resulting Agency Comment Spec In Lab Neri Le MD CHEMISTRY ORDERABLES Performing Organization Address [facility] Co de Phone Number [facility] [employer] * Sedimentation rate (08/03/2014 11:00 AM EDT) Sedimentation Rate Automated 9 0 - 20 mm/hr JARAD ALBARRAN Blood specimen (specimen) 08/03/2014 11:00 AM EDT 08/03/2014 11:08 AM EDT Narrative Resulting Agency Comment Spec In Lab Neri Le MD HEMATOLOGY ORDERABLE S Performing Organization Address [facility] Co de Phone Number [facility] * APTT (08/03/2014 11:00 AM EDT) Partial Thromboplastin Time 25 25 - 35 sec JARAD ALBARRAN Comment: Recommended therapeutic PTT range for full dose unfractionated heparin is 80-114 seconds. Blood specimen (specimen) 08/03/2014 11:00 AM EDT 08/03/2014 11:08 AM EDT Narrative Resulting Agency Comment Spec In Lab Neri Le MD HEMATOLOGY ORDERABLE S Performing Organization Address [facility] de Phone Number CERTRAN MILLENNIUM * (ABNORMAL) Prothrombin Time (08/03/2014 11:00 AM EDT) Prothrombin Time 12.4(L) 12.5 - 15.5 sec CERNER MILLENNIUM Comment: [facility] Transfusion Committee Guidelines: INR less than 2.0, PTT less than OR equal to 43.5 seconds, or Fibrinogen greater than or equal to 100 mg/dl indicate adequate procoagulant activity for hemostasis in patients without underlying bleeding disorders. International Normalization Ratio 0.9 0.9 - 1.1 CERNER MILLENNIUM Blood specimen (specimen) 08/03/2014 11:00 AM EDT 08/03/2014 11:08 AM EDT Narrative Resulting Agency Comment Spec In Lab Neri Le MD HEMATOLOGY ORDERABLE S Performing Organization Address [facility] de Phone Number CERTRAN NELSONENNIUM * (ABNORMAL) Basic Metabolic Panel (non-fasting) (08/03/2014 11:00 AM EDT) Glucose 111 60 - 199 mg/dL CERNER MILLENNIUM Comment:Diabetes: >=200 mg/d L plus symptoms Blood Urea Nitrogen 11 8 - 18 mg/dL CERNER MILLENNIUM Creatinine 0.51(L) 0.70 - 1.20 mg/dL CERNER MILLENNIUM Comment: Please note that the pediatric reference intervals supplied above were not validated at [facility]. Results from pediatric patients should be interpreted in conjunction to the patient's age, height and muscle mass. Sodium 139 135 - 145 mmol/L CERNER MILLENNIUM Potassium 3.6 3.5 - 5.0 mmol/L CERNER MILLENNIUM Comment: Please note: ??Patients with WBC >100,000 may have falsely elevated Potassium levels. ??For accurate Potassium quantification in these patients send serum separator tube (gold top) for subsequent determinations. ??Contact the Clinical Chemistry Laboratory if there are any questions. Chloride 99 98 - 107 mmol/L CERNER MILLENNIUM Carbon Dioxide 26 22 - 31 mmol/L CERNER MILLENNIUM Anion Gap 14 5 - 15 mmol/L CERNER MILLENNIUM Calcium 10.1 8.5 - 10.5 mg/dL CERNER MILLENNIUM Est [...] the following links into your internet browser. [email or web address] Blood specimen (specimen) 08/03/2014 11:00 AM EDT 08/03/2014 11:08 AM EDT Narrative Resulting Agency Comment Spec In Lab Neri Le MD CHEMISTRY ORDERABLES JARAD ALBARRAN documented in this encounter Visit Diagnoses Diagnosis Post-traumatic osteoarthritis of right hip- Primary Secondary localized osteoarthrosis, pelvic region and thigh DJD (degenerative joint disease) of hip Osteoarthrosis, unspecified whether generalized or localized, pelvic region and thigh documented in this encounter Administered Medications Inactive Administered Medications - up to 3 most recent administrations Medication Order MAR Action Action Date Dose Rate Site mupirocin (BACTROBAN) 2 % ointment Topical, 2 TIMES DAILY, First dose on Sat08/04/14 at 0900, 10 doses, Last dose on Sat08/08/14 at 2100, Dispense for self administration. Given 08/03/2014 2:49 PM EDT documented in this encounter Care Teams Protective Signal Operations Supervisor Relationship Specialty Start Date End Date Delmis Dueñas MD [address] [place] [address] PCP - General 09/19/10 08/24/18 documented as of this encounter
--- OUTSIDE RECORDS SUMMARY | 2024-07-03 01:44 | XMS_ITS | Encounter Summary ---
Author Organization [facility] [place] [address] Care Team Providers Care Cook Restaurant Name Role Phone Delmis Dueñas MD Primary Care Provider [phone] Encounter Details Date Type Department Care Team (Late st Contact Info) Description 09/17/2013 [place] [address] Sabrina Awad MD [facility] [place] [address] Abnormal mammogram, unspecified (Primary Dx) Social History Tobacco Use Types [...] documented as of this encounter Results * Mammo breast US unilateral bilateral (03/19/2014 9:24 AM EDT) Anatomical Region Laterality Modality Breast N/A Mammography 03/19/2014 9:24 AM EDT Narrative 03/20/2014 7:26 AM EDT LEFT BREAST ULTRASOUND ON 03/19/14: DIAGNOSTIC IMAGING SUMMARY: LEFT BREAST LESION 1: PROBABLY BENIGN (BIRADS Category 3). Finding: Cluster of cysts with adjacent vessel. Size: 5mm by ultrasound. Location: 1000, 6cm from the nipple. Recommendation: This benign appearing cluster of cysts with an immediately adjacent vessel appears benign and stable since the prior study of 09/17/13. No internal vessel is seen on today's exam. Recommend continued follow-up to confirm stability of this benign appearing complicated cyst versus a cluster of adjacent simple cysts. Repeat six-month ultrasound of the Left breast is recommended at the time of the patient's annual bilateral mammogram in 09/10. This has been scheduled for 09/17/14 at 1:00pm. Findings discussed with the patient who concurs. Preliminary report E-mailed to Dr. Delmis Dueñas on 03/19/14. NARRATIVE: CLINICAL INDICATION: BIRADS Category 3 probably benign Left breast for a cluster of cysts. FINDINGS: This is a (BIRADS Category 3) PROBABLY BENIGN Left breast for a 5 x 3 x 2mm ovoid, predominantly anechoic, partly hypoechoic mass at 1000, 6cm from the nipple which has the appearance of a cluster of cysts as before. Doppler evaluation demonstrates peripheral vessels superficial to this lesion. No definite solid component identified and this lesion is felt to represent a cluster of cysts with intervening tissue; a complex cystic or solid lesion is less likely. Procedure Note Bozena Marquez MD - 03/20/2014 LEFT BREAST ULTRASOUND ON 03/19/14: DIAGNOSTIC IMAGING SUMMARY: LEFT BREAST LESION 1: PROBABLY BENIGN (BIRADS Category 3). Finding: Cluster of cysts with adjacent vessel. Size: 5mm by ultrasound. Location: 1000, 6cm from the nipple. Recommendation: This benign appearing cluster of cysts with an immediately adjacent vessel appears benign and stable since the prior study of09/17/13. No internal vessel is seen on today's exam. Recommend continued follow-up to confirm stability of this benign appearing complicated cyst versus acluster of adjacent simple cysts. Repeat six-month ultrasound of the Left breast is recommended at the time of the patient's annual bilateral mammogram in09/10. This has been scheduled for 09/17/14 at 1:00pm. Findings discussed with the patient who concurs. Preliminary report E-mailed to Dr. Delmis Dueñas on 03/19/14. NARRATIVE: CLINICAL INDICATION: BIRADS Category 3 probably benign Left breast for a cluster of cysts. FINDINGS: This is a (BIRADS Category 3) PROBABLY BENIGN Left breast for a5 x 3 x 2mm ovoid, predominantly anechoic, partly hypoechoic mass at 1000, 6cmfrom the nipple which has the appearance of a cluster of cysts as before.Doppler evaluation demonstrates peripheral vessels superficial to this lesion. No definite solid component identified and this lesion is felt to represent a cluster of cysts with intervening tissue; a complex cystic or solid lesionis less likely. Sabrina Awad MD IMG MAMMO ORDERABLES documented in this encounter Visit Diagnoses Diagnosis Abnormal mammogram, unspecified- Primary Abnormal mammogram, unspecified documented in this encounter Care Teams Cook Restaurant Relationship Specialty Start Date End Date Delmis Dueñas MD [address] [place] [address] PCP - General 09/19/10 08/24/18 documented as of this encounter
--- OUTSIDE RECORDS SUMMARY | 2024-07-03 01:44 | XMS_ITS | Encounter Summary ---
[place] [address] Care Team Providers Care Security Sales Consultant Name Role Phone Delmis Dueñas MD Primary Care Provider [phone] Reason for Visit * Reason Onset Date Comments Appointment 05/10/2014 Encounter Details Date Type Department Care Team (Late st Contact Info) Description 05/10/2014 [place] [phone] Clau Burch Appointment Social History Tobacco Use Types Packs/Day Years Used Date Smoking Tobacco: Never Alcohol Use Standard Drinks/Week Comments Yes 4 (1 standard drink = 0.6 oz pur e alcohol) Sex and Gender Information Value Date Recorded Sex Assigned at Not on file Gender Identity Not on file Sexual Orientation Not on file documented as of this encounter Miscellaneous Notes * Telephone Encounter - Clau Burch - 05/10/2014 11:42 AM EDT Received 7 pages of office notes from DR BLACKMON, for the patients upcomming appointment. * Telephone Encounter - Clau Burch - 05/10/2014 9:34 AM EDT Ask patient to verify the following: VERIFIED / APPT 06/23/14 Full name: Esthela Padron : 1955 Phone number: There is no home phone number on file. Mailing address: [address] o [facility] [address] Intake: RT HIP PAIN S/P DISLOCATION 20 YRS AGO 2ND OP Is this an injury that happened: NO ?? At work? ?? Playing a sport? ?? If yes to either, what is DOI? Tell me how this how long you've had these symptoms? SINCE December Has anyone ever seen you before for this issue? YES Have you tried: YES ?? Physical Therapy ?? INJECTION YES - [facility] ?? Other therapies Have you had any of the following studies for this issue? YES ?? X-Ray YES - [facility] ?? MRI ?? CT Scan ?? LABS Have you seen an Orthopaedic surgeon for the this issue? YES If YES: Who did you see? DR BLACKMON Where were you seen (facility)? [facility] When? Have you ever had surgery for this issue? NO If YES and different than above: Who performed surgery? Where did you have the surgery (facility)? When? Phone # Fax# If patient is implanted with hardware fixation or joint prosthesis retrieve OPERATIVE REPORT and IMPLANT STICKERS. documented in this encounter Plan of Treatment Not on file documented as of this encounter Visit Diagnoses Not on filedocumented in this encounter Care Teams Security Sales Consultant Relationship Specialty Start Date End Date Delmis Dueñas MD [address] [place] [address] PCP - General 09/19/10 08/24/18 documented as of this encounter
--- OUTSIDE RECORDS SUMMARY | 2024-07-03 01:44 | XMS_ITS | Encounter Summary ---
Author Organization [place] [address] Care Team Providers Care Light Fixture Servicer Name Role Phone Delmis Dueñas MD Primary Care Provider [phone] Encounter Details Date Type Department Care Team (Latest Contact Info) Description 09/30/2015 12:47 PM EST - 09/30/2015 11:59 PM EST Hospital [place] [phone] Delmis Dueñas MD [address] [place], [place] [address] Screening breast examination Discharge Disposition: Home Social History Tobacco Use [...] Sig Dispensed Refills Start Date End Date tzmapdr-kyzoeogxirupm-hos feine (EXCEDRIN MIGRAINE) 250-250-65 mg Tablet Take [...] Name Priority Date/Time Associated Diagnosis Comments MAMMO 2D DIGITAL DIAG REESE WITH CAD BILATERAL Routine 09/30/2015 1:13 PM EST Screening breast examination documented in this encounter Results * Mammo Diag Reese Bilateral (09/30/2015 1:13 PM EST) Anatomical Region Laterality Modality Breast Bilateral Mammography Impressions 09/30/2015 1:56 PM EST IMPRESSION:No mammographic evidence of malignancy. Resume routine screening. BI-RADS Category 1: Negative Narrative 09/30/2015 1:56 PM EST EXAMINATION: BILATERAL BREAST(S) DIAGNOSTIC MAMMOGRAM INDICATION: 2 yr stability cat 3. ??Follow-up faint nodule left breast TECHNIQUE: CC and MLO views were obtained of each breast. 2-D and 3- D tomosynthesis images were obtained. Computer aided detection was used. COMPARISON: This study was compared with prior images. FINDINGS: The breasts are almost entirely fatty. There are no suspicious masses, suspicious microcalcifications, or areas of architectural distortion. Specifically, there is no evidence of mass in the left breast 10:00 4 cm from the nipple. The right breast is normal. Delmis Dueñas MD IMG MAMMO ORDERABLES documented in this encounter Visit Diagnoses Diagnosis Screening breast examination (Not by Mammogram) Other screening breast examination documented in this encounter Care Teams Light Fixture Servicer Relationship Specialty Start Date End Date Delmis Dueñas MD [address] [place] [address] PCP - General 09/19/10 08/24/18 documented as of this encounter
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
--- OUTSIDE RECORDS SUMMARY | 2024-07-03 01:44 | XMS_ITS | Encounter Summary ---
[place] [address] Care Team Providers Care Machine Ii Trimmer Name Role Phone Delmis Dueñas MD Primary Care Provider [phone] Reason for Visit * Reason Comments Aftercare Of Tjr 08/09/14 Right ANT T RUTH Encounter Details Date Type Department Care Team (Late st Contact Info) Description 01/11/2015 12:20 PM EDT Office [place] [phone] Neri Mo MD [facility] DR [place] [address] S/P right anterior total hip arthroplasty 08/09/14 ([place]) (Primary Dx) Discharge Disposition: Home Social History [...] Sign Reading Time Taken Comments Blood Pressure 135/74 01/11/2015 12:31 PM EDT Pulse 81 01/11/2015 12:31 PM EDT Temperature - - Respiratory Rate - - Oxygen Saturation - - Inhaled Oxygen Concentration - - Weight 75.3 kg (166 lb) 01/11/2015 12:3 1 PM EDT fully clothed Height 151.1 cm (4' 11.5) 01/11/2015 1 2:31 PM EDT verbal Body Mass Index 32.97 01/11/2015 12:31 PM EDT documented in this encounter Progress Notes * Nina Cortez PA - 01/11/2015 12:36 PM EDT Patient Name: Esthela Padron : 1955 MR#: [id number] Case Date: 08/09/14 Surgeon: Rober Mo Procedure: right total hip replacement HPI: Esthela Padron is a very pleasant 59 y.o. year-old female who presents for a 4 months follow-up of the above procedure. The patient has been doing very well and her pain is markedly improvedover preoperative status. No fevers, chills, nausea, vomiting, or symptoms of infection. Esthela has been ambulating with no assistive device. She has just returned from [place]. . Physical Exam: Well-appearing female in no acute distress. Alert and Oriented x 3 and answers all questions appropriately. Hip Exam: Right Calix Hip Score: Less than 30 degrees of fixed flexion: Yes Less than 10 degrees of fixed adduction: Yes less than 10 degrees of fixed int rotation in extension: Yes Limb Length discrepancy: 0cm Motion: Total degrees of Flexion:95 Total degrees of Abduction:45 Total degrees of Ext Rotation: 30 Total degrees of Adduction: 0 Gait Abnormality: Normal Pulses Palpable: Right PT: Yes Right DP:Yes Motor/Sensory: Right Distal Motor: Normal Distal Sensory: Normal Hip Abductors 5 ASSESSMENT/PLAN: 4 months post-op and doing well. Continue weightbearing as tolerated and working on range of motion, and we will see her back in 8 months for repeat examination. x-rays will be needed at that time. Patient may return to normal activities as her pain and function allow. We discussed the appropriate precautions surrounding dental prophylaxis. I stressed that she shouldavoid elective dental procedures for the first 6 months after surgery and then call the office for a prescription prior to any further dental work for the lifetime of the joint replacement. We also discussed maintaining good foot care and giving prompt attention to any source of infection throughout the body including foot ulcers and urinary tract infections. Signed: TRE Lebron 01/11/2015 documented in this encounter Plan of Treatment Not on file documented as of this encounter Visit Diagnoses Diagnosis S/P right anterior total hip arthroplasty 08/09/14 ([place])- Primary Hip joint replacement by other means documented in this encounter Care Teams Machine Ii Trimmer Relationship Specialty Start Date End Date Delmis Dueñas MD [address] [place] [address] PCP - General 09/19/10 08/24/18 documented as of this encounter
--- OUTSIDE RECORDS SUMMARY | 2024-07-03 01:44 | XMS_ITS | Encounter Summary ---
[place] [address] Care Team Providers Care Licensed Clinical Social Worker Name Role Phone Delmis Dueñas MD Primary Care Provider [phone] Reason for Visit * Reason Comments Aftercare Of Tjr s/p right ant esvin do s 08/09/14 Encounter Details Date Type Department Care Team (Late st Contact Info) Description 09/07/2014 1:30 PM EST Office [place] [phone] Neri Mo MD [facility] [place] [address] S/P right anterior total hip arthroplasty 08/09/14 ([place]) Discharge Disposition: Home Social History Tobacco Use [...] 09/07/2014 1:39 PM ES T Respiratory Rate - - Oxygen Saturation - - Inhaled Oxygen Concentration - - Weight 71.5 kg (157 lb 11.2 oz) 09/07/2014 1:39 PM EST Height 149.9 cm (4' 11) 09/07/2014 1:39 PM EST Body Mass Index 31.85 09/07/2014 1:39 PM EST documented in this encounter Patient Instructions * Patient Instructions* Rogelio Maldonado PA - 09/07/2014 2:22 PM EST -activities as tolerated with exception of running (axial loading) -infection awareness -continue stretching and strengthening -antibiotic prior to dental work -wait 6 months form surgery for elective dental work documented in this encounter Progress Notes * Rogelio Maldonado PA - 09/07/2014 2:27 PM EST Case Date: 08/09/2014 Procedure Performed: right Total Hip Arthroplasty right hip intraoperative radiologic examination (CPT code 62730) Surgeon: Neri Mo MD Implants Used: Femoral Stem: DePuy [place], Size 10 KA Femoral Head: Biolox Delta ceramic, Size 32+5 Acetabulum: DePuy [place] Sector II Gription, Size 48 Adjuvant screw fixation x 1 x 6.5mm (45mm) Liner: Altrx polyethylene, Size 48x32 +4 neutral HPI: 59 y.o. year-old female retruns 4 weeks from her hip replacement. She has been doing very welland her pain is markedly improved over preoperative status. No fevers, chills, nausea, vomiting, orsymptoms of infection. Esthela has been ambulating with [...] well. Continue weightbearing as tolerated and working onrange of motion, and we will see her [...] right anterior total hip arthroplasty 08/09/14 ([place]) Hip joint replacement by other means documented in this encounter Care Teams Licensed Clinical Social Worker Relationship Specialty Start Date End Date Delmis Dueñas MD [address] [place] [address] PCP - General 09/19/10 08/24/18 documented as of this encounter
--- OUTSIDE RECORDS SUMMARY | 2024-07-03 01:44 | XMS_ITS | Encounter Summary ---
[place] [address] Care Team Providers Care Ultrasonic Welding Machine Operator Name Role Phone Delmis Dueñas MD Primary Care Provider [phone] Reason for Referral * Physical Therapy (Routine) - Complete - Patient Will Schedule External Appt Specialty Diagnoses / Procedures Referred By Jourdan t Referred To Contact Physical Therapy Diagnoses Aftercare following joint replacement Neri Mo MD [facility] [place] [address] Referral ID Status Reason Start Date Expiration Date Visits Requested Visits Authorized [id number] Complete - Patient Will Schedule External Appt Evaluate and Treat 4 03/12/2015 1 1 Reason for Visit * Reason Onset Date Comments Physical Therapy 09/13/2014 Encounter Details Date Type Department Care Team (Late st Contact Info) Description 09/13/2014 [place] [phone] Neri Mo MD [facility] [place] [address] Physical Therapy Social History Tobacco Use Types Packs/Day Years [...] encounter Miscellaneous Notes * Telephone Encounter - Naomie Garcia RN - 09/13/2014 2:01 PM EST Date: 08/09/2014 Procedure Performed: right Total Hip Arthroplasty PT referral generated. Esthela will call back after she decides where to have me fax the PT orders. * Telephone Encounter - Sabrina Hartmann - 09/13/2014 1:38 PM EST Patient calling wondering if she can get another referral to physical therapy? She spoke with Lanre Maldonado about this at her last visit on 09/07. And never walked away with with [facility]. Please call her and talk to her about if this is a good idea or not. [phone] documented in this encounter Plan of Treatment Scheduled Referrals Name Type Priority Associated Diagnoses Orde r Schedule Referral to Physical Therapy Outpatient Referral Routine Aftercare following joint replacement Ordered: 09/13/2014 documented as of this encounter Visit Diagnoses Diagnosis Aftercare following joint replacement documented in this encounter Care Teams Ultrasonic Welding Machine Operator Relationship Specialty Start Date End Date Delmis Dueñas MD [address] [place] [address] PCP - General 09/19/10 08/24/18 documented as of this encounter
--- OUTSIDE RECORDS SUMMARY | 2024-07-03 01:44 | XMS_ITS | Encounter Summary ---
Author Organization [facility] [place] [address] Care Team Providers Care Supervisor Motor Vehicle Assembly Name Role Phone Delmis Duñeas MD Primary Care Provider [phone] Encounter Details Date Type Department Care Team (Late st Contact Info) Description 08/09/2014 12:05 PM EDT Anesthesia Event [place] [id number] Neri Collado MD [facility] [place] [address] [facility] [address] Anesthesia Record Procedure Summary Procedure Name Responsible Anesthesiologist Anesthesia Start Time Anesthesia Stop Time TOTAL HIP ARTHROPLASTY, ANTERIOR APPROACH (WRVU 19.6) (Right: Hip) Neri Collado MD 08/09/14 1205 08/09/14 1515 Events Date Time Event Comment 08/09/2014 1129 1204 AN Verify 1205 Start 1209 An Start Data 1216 An Induction 1220 An Intubation 1223 Quick Note Transient urtic arial rash noted over trunk after induction, last a few minutes and resolved with no other symptoms 1237 Anesthesia Ready 1250 Procedure Start 1441 Procedure Stop 1457 Extubation/LMA Out 1502 an stop data 1515 Stop Meds Name Total Midazolam 2 mg fentaNYL 100 mcg lidocaine IV 75 mg propofol 200 mg Rocuronium 60 mg PHENYLephrine 880 mcg ePHEDrine 5 mg ondansetron 8 mg dexAMETHasone 4 mg Neostigmine 4 mg Glycopyrrolate 0.4 mg propofol INF 1,377.4 mg tranexamic acid (CYKLOKAPRON) 1,060 mg i n sodium chloride 0.9% 110.6 mL 1,060 mg ceFAZolin 2 g HYDROmorphone 1 mg lactated ringers 2,000 mL * Agents Name O2 Air Sevoflurane (et) * Blood No blood administrations on file. Lines, Drains, and Airways Type Details Placement Removal Urethral Catheter 08/09/14; indwelling double lumen catheter; 100% silicone; 16; inserted at this facility; 1; 10; 10; none; drainage bag to dependent drainage; 08/10/14; 0605 08/09/14 0000 by Tennille Benjamin, SIOBHAN 08/10/14 0605 by Siria Kam Incision 08/09/14; hip; 06/25 (LDA cleanup utility RA#[id number]); 1715 (LDA cleanup utility RA#[id number]) 08/09/14 0000 by Tennille Benjamin RN 06/25/22 1715 by Kaylynn Lagos (RETIRED) Peripheral IV Line - Single Lumen 08/09/14; 1150; metacarpal vein right (top of hand); [id number] catheter system; 20 gauge, 1 in length; tolerated well, appears comfortable, age-appropriate response; metacarpal vein (top of hand), left; 02/10/18 (Auto removal via utility); 09 (Auto removal via utility) 08/09/14 1150 by Angelica Babin RN 02/10/18 0921 by MarkITx, User ETT Mask Ventilation: Ea sy (1); ETT Type: Cuffed; ETT Size: 7 mm; Mac Blade: 3; Notes: Asleep, Pre-O2; Attempts: 1; Laryngoscopy Grade: 2; ETT Placement Verified By: Auscultation, Capnometry, Visual; Secured at Teeth: 21 cm; Inserted by: kassidy; Removal Date: 08/09/14; Removal Time: 1457 08/09/14 1224 by 08/09/14 1457 by Srinivasan Kohler MD documented in this encounter Social History Tobacco [...] documented as of this encounter OR Notes * Anesthesia Postprocedure Evaluation - Srinivasan Kohler MD [...] tolerated the procedure well Fluid Status: normal * Anesthesia Preprocedure Evaluation - Srinivasan Kohler MD [...] subsequent closed reduction in 05/1993 ??? Hypertension No past medical history on file. Past Surgical History Procedure Date ??? Colonoscopy, diagnostic 09/08/2012 COLONOSCOPY, DIAGNOSTIC performed by WILLIAM TRUJILLO at [facility] History Substance Use Topics ??? Smoking [...] significant for HTN and migraines who is scheduled for Right FREDO Hgb: 14.6 Plt: 312 K: [...] Site ceFAZolin (ANCEF) 1g in dextrose 5% 50mL PRN, Starting on Sat08/09/14 at 1237, Until Sat08/09/14 at 1553, Administer over 30 Minutes, Anesthesia Intra-op Given 08/09/2014 12:37 PM EDT 2 g dexamethasone (DECADRON) injection PRN, Starting on Sat08/09/14 at 1237, Until Sat08/09/14 at 1553, Anesthesia Intra-op, Routine Given 08/09/2014 12:37 PM EDT 4 mg ePHEDrine Sulfate in sodium chloride 0.9% (PF) 50 mg/10 mL (5 mg/mL) injection Syrg PRN, Starting on Sat08/09/14 at 1340, Until Sat08/09/14 at 1553, Anesthesia Intra-op Given 08/09/2014 1:40 PM EDT 5 mg fentaNYL 50mcg/mL injection PRN, Starting on Sat08/09/14 at 1216, Until Sat08/09/14 at 1553, Pain, Anesthesia Intra-op, Routine Given 08/09/2014 12:52 PM EDT 50 mcg Given 08/09/2014 12:16 PM EDT 50 mcg glycopyrrolate (ROBINUL) injection PRN, Starting on Sat08/09/14 at 1421, Until Sat08/09/14 at 1553, Anesthesia Intra-op, Routine Given 08/09/2014 2:21 PM EDT 0.4 mg HYDROmorphone (DILAUDID) injection PRN, Starting on Sat08/09/14 at 1305, Until Sat08/09/14 at 1553, Pain, Anesthesia Intra-op, Routine Given 08/09/2014 1:17 PM EDT 0.5 mg Given 08/09/2014 1:05 PM EDT 0.5 mg lactated ringers infusion CONTINUOUS PRN, Starting on Sat08/09/14 at 1204, Until Sat08/09/14 at 1553, Anesthesia Intra-op New Bag 08/09/2014 2:52 PM EDT mL New Bag 08/09/2014 2:01 PM EDT mL New Bag 08/09/2014 12:04 PM EDT mL lidocaine (PF) (XYLOCAINE) 100 mg/5 mL (2 %) injection PRN, Starting on Sat08/09/14 at 1216, Until Sat08/09/14 at 1553, Anesthesia Intra-op, Routine Given 08/09/2014 12:16 PM EDT 75 mg midazolam (PF) (VERSED) 1 mg/mL injection PRN, Starting on Sat08/09/14 at 1205, Until Sat08/09/14 at 1553, Sleep, Anesthesia Intra-op, Routine Given 08/09/2014 12:05 PM EDT 2 mg neostigmine (PROSTIGMINE) injection PRN, Starting on Sat08/09/14 at 1421, Until Sat08/09/14 at 1553, Anesthesia Intra-op, Routine Given 08/09/2014 2:21 PM EDT 4 mg ondansetron (ZOFRAN) injection PRN, Starting on Sat08/09/14 at 1418, Until Sat08/09/14 at 1553, Nausea, Anesthesia Intra-op, Routine Given 08/09/2014 2:18 PM EDT 8 mg PHENYLephrine HCl in NS (PF) (QUINN-SYNEPHRINE) 0.8 mg/10 mL (80 mcg/mL) injection Syrg PRN, Starting on Sat08/09/14 at 1239, Until Sat08/09/14 at 1553, Anesthesia Intra-op, Routine Given 08/09/2014 2:31 PM EDT 80 mcg Given 08/09/2014 2:25 PM EDT 80 mcg Given 08/09/2014 1:40 PM EDT 80 mcg propofol (DIPRIVAN) 10 mg/mL bolus injection (Anesthesia) PRN, Starting on Sat08/09/14 at 1216, Until Sat08/09/14 at 1553, Anesthesia Intra-op Given 08/09/2014 12:53 PM EDT 4 0 mg Given 08/09/2014 12:16 PM EDT 160 mg propofol (DIPRIVAN) infusion CONTINUOUS PRN, Starting on Sat08/09/14 at 1237, Until Sat08/09/14 at 1553, Anesthesia Intra-op, Routine Rate/Dose Change 08/09/2014 1:35 PM EDT 150 mcg/kg/min 63.9 mL/hr Rate/Dose Change 08/09/2014 1:25 PM EDT 200 mcg/kg/min 85. 2 mL/hr Rate/Dose Change 08/09/2014 1:24 PM EDT 250 mcg/kg/min 106 .5 mL/hr rocuronium (ZEMURON) injection PRN, Starting on Sat08/09/14 at 1217, Until Sat08/09/14 at 1553, Anesthesia Intra-op, Routine Given 08/09/2014 1:44 PM EDT 10 mg Given 08/09/2014 12:17 PM EDT 50 mg tranexamic acid (CYKLOKAPRON) 1,060 mg in sodium chloride 0.9% 110.6 mL 1,060 mg (15 mg/kg/dose ? 70.5 kg), Intravenous, ONCE, 1 dose, On 08/09/14 at 1145, Administer over 30 Minutes, Dilute tranexamic acid dose in 100 mL sodium chloride 0.9% prior to administration. For patients less than or equal to 200 kg infuse over 30 minutes. For patients greater than 200 kg infuse over 60 minutes., Day of Surgery (Day of Procedure) New Bag 08/09/2014 12:32 PM EDT 1,060 mg documented in this encounter Care Teams Supervisor Motor Vehicle Assembly Relationship Specialty Start Date End Date Delmis Dueñas MD [address] [place] [address] PCP - General 09/19/10 08/24/18 documented as of this encounter
--- OUTSIDE RECORDS SUMMARY | 2024-07-03 01:44 | XMS_ITS | Encounter Summary ---
[place] [address] Care Team Providers Care Screedman/Laborer Name Role Phone Delmis Dueñas MD Primary Care Provider [phone] Encounter Details Date Type Department Care Team (Latest Contact Info) Description 03/19/2014 8:27 AM EDT - 03/19/2014 11:59 PM EDT Hospital Encounter [place] [id number] Delmis Dueñas MD [address] [place] [address] Abnormal mammogram, unspecified Discharge Disposition: Home Social [...] Name Priority Date/Time Associated Diagnosis Comments MAMMO BREAST US LIMITED Routine 03/19/2014 9:24 AM EDT Abnormal mammogram, unspecified documented in this encounter Results * Mammo breast US [...] unspecified documented in this encounter Care Teams Screedman/Laborer Relationship Specialty Start Date End Date Delmis Dueñas MD [address] [place] [address] PCP - General 09/19/10 08/24/18 documented as of this encounter
--- OUTSIDE RECORDS SUMMARY | 2024-07-03 01:44 | XMS_ITS | Encounter Summary ---
Author Organization [facility] [place] [address] Care Team Providers Care Bus Person Dishwasher Name Role Phone Delmis Dueñas MD Primary Care Provider [phone] Encounter Details Date Type Department Care Team (Latest Contact Info) Description 09/17/2014 12:51 PM EST - 09/17/2014 11:59 PM EST Hospital [place] [phone] CLINIC, Delmis Menon MD [address] [place], [place] [id number] Abnormal mammogram, unspecified Discharge Disposition: Home Social [...] 17 grams PO BID, PO, BID,PRN 07/13/2004 DIPHENHYDRAMINE HCL (BENADRYL ALLERGY ORAL) Take by mouth nightly as needed. 01/11/2015 aspirin 325 mg Tablet, Delayed Release (E.C.) Take 1 tablet by mouth 2 times daily for 41 days. Take with food. 82 tablet 0 08/10/2014 09/20/2014 acetaminophen (TYLENOL) 500 mg Tablet Take 2 tablets by mouth every 8 hours. Around the clock until August 19, and then as needed. DO NOT EXCEED 3000 mg tylenol in a 24 hour period. 08/10/2014 01/11/2015 documented as of this encounter Plan of Treatment Not on file documented as of this encounter Procedures Procedure Name Priority Date/Time Associated Diagnosis Comments MAMMO DIAGNOSTIC CAD BILATERAL Routine 09/17/2014 2:52 PM EST documented in this encounter Results * Mammo digital bilateral diagnostic with CAD (09/17/2014 2:52 PM EST) Anatomical Region Laterality Modality Breast Bilateral Mammography 09/17/2014 2:52 PM EST Narrative 09/21/2014 7:41 AM EST BILATERAL MAMMOGRAPHY ON 09/17/14: ?? DIAGNOSTIC IMAGING SUMMARY: ?? LEFT BREAST: PROBABLY BENIGN (BIRADS Category 3). ?? Finding: Mass. ?? Size: 4 x 7mm. ?? Location: 1000, 4cm from the nipple. ?? Recommendation: Bilateral diagnostic mammography follow-up in one year to complete a two-year follow-up. This has been scheduled for 09/30/15 at 1:00pm. ?? Mammographic differential: Complicated cyst versus cluster of simple cysts. ?? The Right breast is NEGATIVE (BIRADS Category 1). ?? NARRATIVE: ?? CLINICAL INDICATION: Screening of the Right breast and follow-up of a BIRADS Category 3 lesion in the Left breast. ?? TECHNIQUE: Standard screening views (CC and MLO) of both breasts were obtained in addition to 3D tomographic CC images of the Left breast, all with direct digital capture. ?? COMPARISON: Unilateral mammography 09/17/13, screening mammography 09/11/13 and targeted ultrasound of the Left breast from 03/19/14 and 09/17/13. ?? FINDINGS: As seen on the prior mammogram there is a small 7 x 4mm circumscribed, oval mass in the upper, inner Left breast at approximately 1000, 4cm from the nipple. There is no change in size and appearance of the mass compared with priors. ? The remainder of the mammogram does not reveal additional abnormalities. ? The breasts have a stable fibroglandular scattered density. ? Film and interpretation reviewed by the attending Procedure Note Tj Encinas MD - 09/21/2014 BILATERAL MAMMOGRAPHY ON 09/17/14: DIAGNOSTIC IMAGING SUMMARY: LEFT BREAST: PROBABLY BENIGN (BIRADS Category 3). Finding: Mass. Size: 4 x 7mm. Location: 1000, 4cm from the nipple. Recommendation: Bilateral diagnostic mammography follow-up in one year to complete a two-year follow-up. This has been scheduled for 09/30/15 at1:00pm. Mammographic differential: Complicated cyst versus cluster of simplecysts. The Right breast is NEGATIVE (BIRADS Category 1). NARRATIVE: CLINICAL INDICATION: Screening of the Right breast and follow-up of aBIRADS Category 3 lesion in the Left breast. TECHNIQUE: Standard screening views (CC and MLO) of both breasts wereobtained in addition to 3D tomographic CC images of the Left breast, all withdirect digital capture. COMPARISON: Unilateral mammography 09/17/13, screening [id number] and targeted ultrasound of the Left breast from 03/19/14 and 09/17/13. FINDINGS: As seen on the prior mammogram there is a small 7 x 4mm circumscribed, oval mass in the upper, inner Left breast at [id number], 4cm from the nipple. There is no change in size and appearance of the mass compared with priors. The remainder of the mammogram does not reveal additional abnormalities. The breasts have a stable fibroglandular scattered density. Film and interpretation reviewed by the attending Delmis Dueñas MD IMG MAMMO ORDERABLES documented in this encounter Visit Diagnoses Diagnosis Abnormal mammogram, unspecified documented in this encounter Care Teams Bus Person Dishwasher Relationship Specialty Start Date End Date Delmis Dueñas MD [address] [place] [address] PCP - General 09/19/10 08/24/18 documented as of this encounter
--- OUTSIDE RECORDS SUMMARY | 2024-07-03 01:44 | XMS_ITS | Encounter Summary ---
[place] [address] Care Team Providers Care Airconditioning Engineer Name Role Phone Delmis Dueñas MD Primary Care Provider [phone] Reason for Visit * Reason Onset Date Comments Pre Procedure Call 06/29/2014 Encounter Details Date Type Department Care Team (Late st Contact Info) Description 06/29/2014 Telephone [place] [phone] Neri Mo MD [facility] [place] [address] Pre Procedure Call Social History Tobacco Use Types Packs/Day Years [...] encounter Miscellaneous Notes * Telephone Encounter - Viji Garcia - 06/29/2014 2:33 PM EDT Returned patient's call. Moved up patient's [address] Mo to 2:30pm per patient'srequest. * Telephone Encounter - Vera Avalos - 06/29/2014 8:42 AM EDT Patient wants to change her pre surgery SH7 appointment CASE REQ 08/09/[address]O [address] Dr. Mo to an earlier time on 08.03.14. Please call her on her cell phone at [phone]. documented in this encounter Plan of Treatment Not on file documented as of this encounter Visit Diagnoses Not on filedocumented in this encounter Care Teams Airconditioning Engineer Relationship Specialty Start Date End Date Delmis Dueñas MD [address] [place] [address] PCP - General 09/19/10 08/24/18 documented as of this encounter
--- OUTSIDE RECORDS SUMMARY | 2024-07-03 01:44 | XMS_ITS | Encounter Summary ---
Author Organization [facility] [place] [address] Care Team Providers Care Technical Programs Manager Name Role Phone Delmis Dueñas MD Primary Care Provider [phone] Encounter Details Date Type Department Care Team (Late st Contact Info) Description 09/08/2012 1:00 PM EST - 09/08/2012 1:30 PM EST Surgery [place] [address] Tj Daily MD [facility] [place] [address] COLONOSCOPY, DIAGNOSTIC (WRVU 3.26) Social History Tobacco Use Types Packs/Day Years [...] 36.8 ??C (98.2 ??F) 09/08/2012 12:[address] Respiratory Rate 18 09/08/2012 1:36 PM EST Oxygen Saturation 93% 09/08/2012 1:36 PM EST Inhaled Oxygen Concentration - - Weight - - Height - - Body Mass Index - - documented in this encounter Discharge Instructions * Discharge Instructions* Evelyne Tatum RN - 09/08/2012 1:37 PM EST Please call [phone], before 5pm with problems, questions or concerns, after 5pm call the Hospital at [phone] and ask to speak to the Scientific Advisor television inspector and the jewelry drill operator will contactthat person for you. Discharge instructions reviewed with [...] foul drainage occurs, please contact your Doctor. * Attachments The following attachments cannot be sent through Care Everywhere. * COLONOSCOPY: WHAT TO EXPECT AT HOME (CYPRIOT) documented in this encounter Medications at Time [...] 07/13/2004 08/09/2014 documented as of this encounter H&P Notes * Tj Daily MD - 09/08/2012 12:23 PM [...] signed. documented in this encounter Miscellaneous Notes * Miscellaneous - Provider, Scanning - 09/08/2012 10:55 PM EST * Miscellaneous - Provider, Scanning - 09/08/2012 12:19 PM EST documented in this encounter Plan of Treatment Not on file documented as of this encounter Procedures Procedure Name Priority Date/Time Associated Diagnosis Comments COLONOSCOPY, DIAGNOSTIC (WRVU 3.26) 09/08/2012 1:00 PM EST screening COLONOSCOPY Routine 09/08/2012 12:57 PM EST documented in this encounter Results * COLONOSCOPY (09/08/2012 12:57 PM EST) COLONOSCOPY [facility] Endoscopy Patient Name: Esthela Padron ? Procedure Date: 09/08/2012 12:57 PM ? Date of : 1955 ? Age: 57 ? Order #: [id number] ? Procedure: ? Colonoscopy Indications: ? Screening for colorectal malignant ? neoplasm Providers: ? Tj Daily MD, Esthela Murray, ? RN, Serenity Ann, Braided Rug Maker Referring : ?Delmis Dueñas MD Medicines: ? Midazolam 4 [...] Dueñas MD GENERAL SURGICAL ORD ERABLES PROVATION documented in this encounter Visit Diagnoses Not on filedocumented in this encounter Administered Medications Inactive Administered Medications - up to 3 most recent administrations Medication Order MAR Action Action Date Dose Rate Site fentaNYL 50mcg/mL injection ONCE PRN, Starting on Sat09/08/12 at 1303, Until Sat09/08/12 at 1736, Pain, Intra-Operative (Intra-Procedure), Routine Given 09/08/2012 1:13 PM EST 50 mcg Given 09/08/2012 1:08 PM EST 50 mcg Given 09/08/2012 1:03 PM EST 100 mcg midazolam (VERSED) injection ONCE PRN, Starting on Sat09/08/12 at 1303, Until Sat09/08/12 at 1736, Sleep, Intra-Operative (Intra-Procedure), Routine Given 09/08/2012 1:14 PM EST 1 mg Given 09/08/2012 1:08 PM EST 1 mg Given 09/08/2012 1:03 PM EST 2 mg ondansetron (ZOFRAN) injection 4 mg 4 mg, Intravenous, ONCE, 1 dose, On Sat09/08/12 at 1330, Endoscopy (Intra-Procedure) Given 09/08/2012 1:00 PM EST 4 mg documented in this encounter Active and Recently Administered Medications Times are shown in EST. Scheduled Medication Order 09/06/2012 09/07/2012 09/08/2012 ondansetron (ZOFRAN) injection 4 mg (COMPLETED) 4 mg, Intravenous, ONCE, 1 dose, On Sat09/08/12 at 1330, Endoscopy (Intra-Procedure) 1300 (Given - Provid er: Esthela Murray RN - Comment: med for nausea)1330 (Due) PRN Medication Order 09/06/2012 09/07/2012 09/08/2012 fentaNYL 50mcg/mL injection (CANCELED) ONCE PRN, Starting on Sat09/08/12 at 1303, Until Sat09/08/12 at 1736, Pain, Intra-Operative (Intra-Procedure), Routine 1303 (Given - Provid er: Esthela Murray RN - Comment: first dose of moderate sedation)1308 (Given - Provider: Esthela Murray RN - Comment: med for sedation)1313 (Given - Provider: Esthela Murray RN - Comment: med for sedation) midazolam (VERSED) injection (CANCELED) ONCE PRN, Starting on Sat09/08/12 at 1303, Until Sat09/08/12 at 1736, Sleep, Intra-Operative (Intra-Procedure), Routine 1303 (Given - Provid er: Esthela Murray RN - Comment: first dose of moderate sedation)1308 (Given - Provider: Esthela Murray RN - Comment: med for sedation)1314 (Given - Provider: Esthela Murray RN - Comment: med for sedation) documented in this encounter Care Teams Technical Programs Manager Relationship Specialty Start Date End Date Delmis Dueñas MD [address] [place] [address] PCP - General 09/19/10 08/24/18 documented as of this encounter
--- OUTSIDE RECORDS SUMMARY | 2024-07-03 01:44 | XMS_ITS | Encounter Summary ---
[place] [address] Care Team Providers Care Hay Buckler Name Role Phone Delmis Dueñas MD Primary Care Provider [phone] Encounter Details Date Type Department Care Team (Late st Contact Info) Description 09/06/2014 Orders [place] [address] Neri Mo MD [facility] [place] [address] S/P right anterior total hip arthroplasty 08/09/14 (Chepe) Social History Tobacco Use Types Packs/Day Years [...] of this encounter Results * XR pelvis and lateral hip (09/07/2014 1:06 PM EST) Anatomical Region Laterality Modality Pelvis, Hip N/A Radiographic Kareen ging 09/07/2014 1:06 PM EST Narrative 09/07/2014 3:20 PM EST Examination PELVIS+LATERAL HIP/RIGHT Clinical History S/P RTHA 08/09/14 Comparison 08/09/2014 and 06/23/2014. Technique AP pelvis with lateral right hip. Findings Noncemented right total hip arthroplasty is in place. ??No acute complication is identified. Impression Right total hip arthroplasty without complication Procedure Note Tommy Cassidy MD - 09/07/2014 Examination PELVIS+LATERAL HIP/RIGHT Clinical History S/P RTHA 08/09/14 Comparison 08/09/2014 and 06/23/2014. Technique AP pelvis with lateral right hip. Findings Noncemented right total hip arthroplasty is in place. No acutecomplication is identified. Impression Right total hip arthroplasty without complication Neri Mo MD IMG DX ORDERABLES documented in this encounter Visit Diagnoses Diagnosis S/P right anterior total hip arthroplasty 08/09/14 (Chepe) Hip joint replacement by other means S/P right anterior total hip arthroplasty 08/09/14 (Chepe) Hip joint replacement by other means documented in this encounter Care Teams Hay Buckler Relationship Specialty Start Date End Date Delmis Dueñas MD [address] [place] [address] PCP - General 09/19/10 08/24/18 documented as of this encounter
--- OUTSIDE RECORDS SUMMARY | 2024-07-03 01:44 | XMS_ITS | Encounter Summary ---
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 Fax to [facility] [phone] Message sent to the [facility] pool to write the letter. * Telephone Encounter - Lupe Flowers - 08/27/2014 8:32 AM EDT When was your procedure? 08/09/14 Who was your surgeon? MIMI What procedure did you have done? RIGHT FREDO ANT What is the question you would like to ask the nurse? 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 SHE STATES SHE WOULD JUST BE SITTING AROUND WITH A LAPTOP. SHE WOULD LIKE SOMEONE TO GIVE HER A CALL. IF IN FACT SHE CAN RETURN TO WORK PLEASE SEND LETTER REQUEST TO [facility] SO WE CAN SEND IT TO HER EMPLOYER Best number to reach you # [phone] The nurse continuously monitors all messages and will return your call before the end of the day. The nurse may need to consult the surgeon about your question which may delay the return call by 24hrs. documented in this encounter Plan of Treatment Not on file documented as of this encounter Visit Diagnoses Not on filedocumented in this encounter Care Teams Casino Shift Manager Relationship Specialty Start Date End Date Delmis Dueñas MD [address] [place] [address] PCP - General 09/19/10 08/24/18 documented as of this encounter
--- OUTSIDE RECORDS SUMMARY | 2024-07-03 01:44 | XMS_ITS | Encounter Summary ---
Author Organization [facility] Address [facility] [place] [address] Care Team Providers Care Clinic Receptionist Name Role Phone Delmis Dueñas MD Primary Care Provider Encounter Details Date Type Department Care Team (Latest Contact Info) Description 09/07/2014 12:54 PM EST - 09/07/2014 11:59 PM [facility] Hospital Encounter XRay at [address] [place] [phone] S/P right anterior total hip arthroplasty 08/09/14 [...] Date/Time Associated Diagnosis Comments XR PELVIS AND LATERAL HIP Routine 09/07/2014 1:06 PM EST S/P right anterior total hip arthroplasty 08/09/14 (Chepe) documented in this encounter Results * XR pelvis and [...] means documented in this encounter Care Teams Clinic Receptionist Relationship Specialty Start Date End Date Delmis Dueñas MD [address] [place] [address] PCP - General 09/19/10 08/24/18 documented as of this encounter
--- OUTSIDE RECORDS SUMMARY | 2024-07-03 01:44 | XMS_ITS | Encounter Summary ---
Author Organization [facility] [place] [address] Care Team Providers Care Sample Paster Name Role Phone Delmis Dueñas MD Primary Care Provider [phone] Encounter Details Date Type Department Care Team (Latest Contact Info) Description 09/17/2013 7:49 AM EST - 09/17/2013 11:59 PM EST Hospital [place] [phone] Abnormal mammogram, unspecified Social History Tobacco Use [...] Diagnosis Comments MAMMO BREAST US LIMITED Routine 09/17/2013 9:25 AM EST Abnormal mammogram, unspecified documented in this encounter Results * Mammo breast US unilateral bilateral (09/17/2013 9:25 AM EST) Anatomical Region Laterality Modality Breast N/A Mammography 09/17/2013 9:25 AM EST Narrative 09/17/2013 4:35 PM EST [...] unspecified documented in this encounter Care Teams Sample Paster Relationship Specialty Start Date End Date Delmis Dueñas MD [address] [place] [address] PCP - General 09/19/10 08/24/18 documented as of this encounter
--- OUTSIDE RECORDS SUMMARY | 2024-07-03 01:44 | XMS_ITS | Encounter Summary ---
Author Organization [facility] [place] [address] Care Team Providers Care Wheelage Clerk Name Role Phone Delmis Dueñas MD Primary Care Provider [phone] Encounter Details Date Type Department Care Team (Late st Contact Info) Description 09/14/2013 [place] [address] Paola Meade MD [facility] [place] [address] Abnormal mammogram, unspecified (Primary Dx) Social History [...] concurs. Preliminary report E-mailed to Dr. Delmis Duñeas on 09/17/13. NARRATIVE: CLINICAL INDICATION: Callback from [...] a complex cystic/solid lesion. Paola Meade MD [facility] MAMMO ORDERABLES * Mammo call back diagnostic extra view [...] Abnormal mammogram, unspecified- Primary Abnormal mammogram, unspecified Abnormal mammogram, unspecified documented in this encounter Care Teams Wheelage Clerk Relationship Specialty Start Date End Date Delmis Dueñas MD [address] [place] [address] PCP - General 09/19/10 08/24/18 documented as of this encounter
--- OUTSIDE RECORDS SUMMARY | 2024-07-03 01:44 | XMS_ITS | Encounter Summary ---
[place] [address] Care Team Providers Care Rn Immunology Name Role Phone Delmis Dueñas MD Primary Care Provider [phone] Encounter Details Date Type Department Care Team (Late st Contact Info) Description 04/02/2014 Orders [place] [address] Neri Mo MD [facility] [place] [address] Social History Tobacco Use Types Packs/Day Years [...] Procedure Name Priority Date/Time Associated Diagnosis Comments FILM LIBRARY STORAGE ONLY DX HIP Routine 04/02/2014 6:59 AM EDT documented in this encounter Results * Film Library- Storage only DX Hip (04/02/2014 6:59 AM EDT) Anatomical Region Laterality Modality Other 04/02/2014 6:59 AM EDT Narrative 05/11/2014 7:11 AM EDT This is a Non-reportable exam Procedure Note 05/11/2014 This is a Non-reportable exam Neri Mo MD [facility] [place]M LIBRARY ORD ERABLES documented in this encounter Visit Diagnoses Not on filedocumented in this encounter Care Teams Rn Immunology Relationship Specialty Start Date End Date Delmis Dueñas MD [address] [place] [address] PCP - General 09/19/10 08/24/18 documented as of this encounter
--- OUTSIDE RECORDS SUMMARY | 2024-07-03 01:44 | XMS_ITS | Encounter Summary ---
Author Organization [facility]nie [facility] [place] [address] Care Team Providers Care Hide Stretcher Hand Name Role Phone Delmis Dueñas MD Primary Care Provider [phone] Reason for Visit * Reason Onset Date Comments Follow-up 09/07/2014 Encounter Details Date Type Department Care Team (Late st Contact Info) Description 09/07/2014 Telephone [place] [phone] Neri Mo MD [facility] [place] [address] Follow-up Social History Tobacco Use Types Packs/Day Years [...] encounter Miscellaneous Notes * Telephone Encounter - Marita Kramer - 09/08/2014 9:36 AM EST APPT SCHEDULED * Telephone Encounter - Sabrina Hicks - 09/07/2014 4:56 PM EST Spoke to patient about scheduling a 2-month follow up from office visit on 09/[address] Mo. She was on her cell phone and the call was lost. documented in this encounter Plan of Treatment Not on file documented as of this encounter Visit Diagnoses Not on filedocumented in this encounter Care Teams Hide Stretcher Hand Relationship Specialty Start Date End Date Delmis Dueñas MD [address] [place] [address] PCP - General 09/19/10 08/24/18 documented as of this encounter
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
--- OUTSIDE RECORDS SUMMARY | 2024-07-03 01:44 | XMS_ITS | Encounter Summary ---
[place] [address] Care Team Providers Care Python Developer Name Role Phone Delmis Dueñas MD Primary Care Provider [phone] Encounter Details Date Type Department Care Team (Late st Contact Info) Description 08/03/2014 8:30 AM EDT Office [place] [phone] Social History Tobacco Use Types Packs/Day Years [...] on filedocumented in this encounter Care Teams Python Developer Relationship Specialty Start Date End Date Delmis Dueñas MD [address] [place] [address] PCP - General 09/19/10 08/24/18 documented as of this encounter
--- OUTSIDE RECORDS SUMMARY | 2024-07-03 01:44 | XMS_ITS | Encounter Summary ---
Author Organization [facility] [place] [address] Care Team Providers Care Scaleman Name Role Phone Delmis Dueñas MD Primary Care Provider [phone] Reason for Referral * Physical Therapy (Routine) - Closed Specialty Diagnoses / Procedures Referred By Contac t Referred To Contact Physical Therapy Diagnoses S/P hip replacement Rogelio Maldonado PA [facility] [address] Referral ID Status Reason Start Date Expiration Date V isits Requested Visits Authorized [id number] Closed Evaluate and Treat 08/23/2015 02/19/2016 12 12 Reason for Visit * Reason Comments Aftercare Of Tjr Rt FREDO Ant DOS 08/09 Encounter Details Date Type Department Care Team (Late st Contact Info) Description 08/23/2015 11:30 AM EDT Office Visit [place] [address] Rogelio Maldonado PA [facility] [place] [address] S/P hip replacement (Primary Dx); S/P right anterior total hip arthroplasty 08/09/14 [...] - Weight 74.2 kg (163 lb 9.6 oz) 08/23/2015 11:20 AM EDT fully clothed Height 152.4 cm (5') 08/23/2015 11:20 AM EDT verbal Body Mass Index 31.95 08/23/2015 11:20 AM EDT documented in this encounter Progress Notes * Rogelio Maldonado PA - 08/24/2015 10:00 AM EDT Case Date: 08/09/2014 Procedure Performed: right Total Hip Arthroplasty right hip intraoperative radiologic examination (CPT code 25789) Surgeon: Neri Mo MD Implants Used: Femoral Stem: DePuy [place], Size 10 KA Femoral Head: Biolox Delta ceramic, Size 32+5 Acetabulum: DePuy [place] Sector II Gription, Size 48 Adjuvant screw [...] Referral to Physical Therapy Outpatient Referral Routine S/P hip replacement Ordered: 08/23/2015 documented as of this encounter Visit Diagnoses Diagnosis S/P hip replacement- Primary Hip joint replacement by other means S/P right anterior total hip arthroplasty 08/09/14 (Chepe) Hip joint replacement by other means documented in this encounter Care Teams Scaleman Relationship Specialty Start Date End Date Delmis Dueñas MD [address] [place] [address] PCP - General 09/19/10 08/24/18 documented as of this encounter
--- OUTSIDE RECORDS SUMMARY | 2024-07-03 01:44 | XMS_ITS | Encounter Summary ---
Author Organization Formerly [facility] Address [facility] [place] [address] Care Team Providers Care Baggage Agent Name Role Phone Delmis Dueñas MD Primary Care Provider [phone] Encounter Details Date Type Department Care Team (Latest Contact Info) Description 06/23/2014 8:41 AM EDT - 06/23/2014 11:59 PM EDT Hospital Encounter XRay at [address] [place] [id number] Pain in right hip Social History Tobacco Use Types [...] 17 grams PO BID, PO, BID,PRN 07/13/2004 potassium chloride SA (K-DUR;KLOR-CON) 20 mEq tablet 20meq, PO, QAM 08/30/2004 08/03/2014 Triamcinolone Acetonide 0.05 % Oint 1 Appl(s), Top, BID PRN 07/13/2004 08/09/2014 documented as of this encounter Plan of Treatment Not on file documented as of this encounter Procedures Procedure Name Priority Date/Time Associated Diagnosis Comments XR PELVIS AP AND HIP 2 VIEWS OF 1 HIP Routine 06/23/2014 8:51 AM EDT Pain in right hip documented in this encounter Results * XR pelvis AP [...] thigh documented in this encounter Care Teams Baggage Agent Relationship Specialty Start Date End Date Delmis Dueñas MD [address] [place] [address] PCP - General 09/19/10 08/24/18 documented as of this encounter
--- OUTSIDE RECORDS SUMMARY | 2024-07-03 01:44 | XMS_ITS | Encounter Summary ---
Author Organization [facility] Address [facility] [place] [address] Care Team Providers Care General Manager [employer] Name Role Phone Delmis Dueñas MD Primary Care Provider [phone] Encounter Details Date Type Department Care Team (Latest Contact Info) Description 08/23/2015 10:27 AM EDT - 08/23/2015 11:59 PM EDT Hospital Encounter XRay at [address] [place] [address] Neri Mo MD [facility] [place] [address] S/P right anterior total hip arthroplasty 08/09/14 [...] Sig Dispensed Refills Start Date End Date jnrlhvb-cpbznywlblngl-zeg feine (EXCEDRIN MIGRAINE) 250-250-65 mg Tablet Take [...] Date/Time Associated Diagnosis Comments XR PELVIS AND LAT HIP RIGHT Routine 08/23/2015 10:51 AM EDT S/P right anterior total hip arthroplasty 08/09/14 ([place]) documented in this encounter Results * XR Pelvis And Lateral Hip Right (08/23/2015 10:51 AM EDT) Anatomical Region Laterality Modality Pelvis, Hip Right Digital Radiogra phy Impressions 08/23/2015 11:08 AM EDT IMPRESSION: Right total hip arthroplasty without change or complication. Narrative 08/23/2015 11:08 AM EDT EXAMINATION: XR PELVIS AND LATERAL HIP RIGHT CLINICAL HISTORY: right FREDO TECHNIQUE: AP pelvis and lateral view right hip COMPARISON: 09/07/2014 FINDINGS: Following right total hip arthroplasty no change or complication is identified. Procedure Note Tommy Cassidy MD - 08/23/2015 EXAMINATION: XR PELVIS AND LATERAL HIP RIGHT CLINICAL HISTORY: right FREDO TECHNIQUE: AP pelvis and lateral view right hip COMPARISON: 09/07/2014 FINDINGS: Following right total hip arthroplasty no change or complication isidentified. IMPRESSION IMPRESSION: Right total hip arthroplasty without change or complication. Dr Hartley [facility] DX ORDERABLES documented in this encounter Visit Diagnoses Diagnosis S/P right anterior total hip arthroplasty 08/09/14 ([place]) Hip joint replacement by other means documented in this encounter Care Teams General Manager [employer] Data [employer] Relationship Specialty Start Date End Date Delmsi Dueñas MD [address] [place] [address] PCP - General 09/19/10 08/24/18 documented as of this encounter
--- OUTSIDE RECORDS SUMMARY | 2024-07-03 01:45 | XMS_ITS | Encounter Summary ---
[place] [address] Care Team Providers Care Lockstitch Sleeve Maker Name Role Phone Delmis Dueñas MD Primary Care Provider [phone] Encounter Details Date Type Department Care Team (Latest Contact Info) Description 08/31/2011 9:25 AM EDT - 08/31/2011 11:59 PM EDT Hospital [place] [id number] CLINIC, Delmis Menon MD [address] [place], [place] [id number] Discharge Disposition: Home Social History Tobacco Use Types Packs/Day Years Used Date Smoking Tobacco: Never Assessed Sex and Gender Information Value Date Recorded Sex Assigned at Not on file Gender Identity Not on file Sexual Orientation Not on file documented as of this encounter Medications at Time of Discharge Medication Sig Dispensed Refills Start Date End Date hydrochlorothiazide (HYDRODIURIL) 25 mg tablet 25mg, PO, [...] Diagnosis Comments MAMMO SCREENING CAD BILATERAL Routine 08/31/2011 9:48 AM EDT documented in this encounter Results * MAMMO DIGITAL BILATERAL SCREENING WITH CAD (08/31/2011 9:48 AM EDT) Anatomical Region Laterality Modality Breast Bilateral Mammography 08/31/2011 9:48 AM EDT Narrative 09/06/2011 9:50 AM EST ? BILATERAL MAMMOGRAPHY ?? REASON FOR EXAM: Screening ?? TECHNIQUE: Cranio-caudal (CC) and mediolateral oblique (MLO) views of both breasts obtained with direct digital capture. The exam was evaluated by CAD Version 8.3.17. ?? FINDINGS: This is a negative mammogram (ACR Category 1). There is a stable fibroglandular pattern without significant change as compared to prior studies. There is no mammographic evidence of cancer. ? The breasts are predominantly fatty. ? CONCLUSION ?? This is a NEGATIVE mammogram (ACR Category 1). Routine screening mammography is recommended with the frequency dependent on the patient's age and breast cancer risk factors. ?? A letter has been sent to this patient by [facility]. Procedure Note Bozena Marquez MD - 09/06/2011 BILATERAL MAMMOGRAPHY REASON FOR EXAM: Screening TECHNIQUE: Cranio-caudal (CC) and mediolateral oblique (MLO) views of both breasts obtained with direct digital capture. The exam was evaluated byCAD Version 8.3.17. FINDINGS: This is a negative mammogram (ACR Category 1). There is a stable fibroglandular pattern without significant change as compared to priorstudies. There is no mammographic evidence of cancer. The breasts are predominantly fatty. CONCLUSION This is a NEGATIVE mammogram (ACR Category 1). Routine screeningmammography is recommended with the frequency dependent on the patient's age and breastcancer risk factors. A letter has been sent to this patient by the [facility]. Delmis Dueñas MD IMG MAMMO ORDERABLES documented in this encounter Visit Diagnoses Not on filedocumented in this encounter Care Teams Lockstitch Sleeve Maker Relationship Specialty Start Date End Date Delmis Dueñas MD [address] [place] [address] PCP - General 09/19/10 08/24/18 documented as of this encounter
--- OUTSIDE RECORDS SUMMARY | 2024-07-03 01:45 | XMS_ITS | Encounter Summary ---
[place] [address] Care Team Providers Care Support Group Manager Name Role Phone Delmis Dueñas MD Primary Care Provider [phone] Encounter Details Date Type Department Care Team (Latest Contact Info) Description 09/05/2012 11:03 AM EST - 09/05/2012 11:59 PM [facility] Hospital [place] [phone] CLINIC, Delmis Menon MD [address] [place], [place] [id number] Discharge Disposition: Home Social History Tobacco Use [...] Diagnosis Comments MAMMO SCREENING CAD BILATERAL Routine 09/05/2012 11:29 AM EST documented in this encounter Results * MAMMO DIGITAL BILATERAL SCREENING WITH CAD (09/05/2012 11:29 AM EST) Anatomical Region Laterality Modality Breast Bilateral Mammography 09/05/2012 11:2 9 AM EST Narrative 09/09/2012 10:23 AM EST [...] by [facility] Procedure Note Leann Barney MD - 09/09/2012 BILATERAL MAMMOGRAPHY REASON FOR EXAM: Screening TECHNIQUE: [...] on filedocumented in this encounter Care Teams Support Group Manager Relationship Specialty Start Date End Date Delmis Dueñas MD [address] [place] [address] PCP - General 09/19/10 08/24/18 documented as of this encounter
--- OUTSIDE RECORDS SUMMARY | 2024-07-03 01:45 | XMS_ITS | Encounter Summary ---
Author Organization [facility] [place] [address] Care Team Providers Care Gasser Machine Operator Name Role Phone Delmis Dueñas MD Primary Care Provider [phone] Encounter Details Date Type Department Care Team (Latest Contact Info) Description 09/08/2012 11:58 AM EST - 09/08/2012 3:35 PM EST Hospital En[place] [address] Tj Daily MD [facility] [place] [address] Discharge Disposition: Home Social History Tobacco Use [...] - 09/08/2012 1:37 PM EST Please call [phone], before 5pm with problems, questions or concerns, after 5pm call the Hospital at [phone] and ask to speak to the Eviction Specialist aeronautical engineering officer and the twitchell operator will contactthat person for you. Discharge [...] * COLONOSCOPY: WHAT TO EXPECT AT HOME (UKRAINIAN) documented in this encounter Medications at Time [...] * COLONOSCOPY (09/08/2012 12:57 PM EST) COLONOSCOPY [facility] Endoscopy Patient Name: Esthela Padron ? Procedure Date: 09/08/2012 12:57 PM ? Date of : 1955 ? Age: 57 ? Order #: [id number] ? Procedure: ? Colonoscopy Indications: ? Screening for colorectal malignant ? neoplasm Providers: ? Tj Daily MD, Esthela Murray, ? RN, Serenity Ann, Leather Colorer Referring MD: ?Delmis Dueñas MD Medicines: ? [...] Diagnoses Not on filedocumented in this encounter Active and Recently Administered [...] Routine 1303 (Given - Provid er: Esthela Murary RN - Comment: first dose of moderate sedation)1308 (Given - Provider: Esthela Murray RN - Comment: med for sedation)1314 (Given - Provider: Esthela Murray RN - Comment: med for sedation) documented in this encounter Care Teams Gasser Machine Operator Relationship Specialty Start Date End Date Delmis Dueñas MD [address] [place] [address] PCP - General 09/19/10 08/24/18 documented as of this encounter
[2024-07-03 08:09] LABS: Anion Gap 7.9 mmol/L (3-11); BUN 10 mg/dL (7-18); CO2 30.1 mmol/L (21.0-32.0); CREATININE 0.6 mg/dL (0.55-1.02); Calcium 9.2 mg/dL (8.5-10.1); Calculated LDL 147 mg/dL (<100); Chloride 103 mmol/L (98-107); Cholesterol 229 mg/dL (<200); Estimated GFR 97.71 (mL/min/1.73m2); Glucose 144 mg/dL (74-106); HDL Cholesterol 62 mg/dL (40-60); Potassium 4.3 mmol/L (3.5-5.1); Sodium 141 mmol/L (136-145); Triglyceride 104 mg/dL (<150)
== END 2024-07-03 01:12 | disposition home or self-care (01) ==
LOC: LBO 01:11
PROVIDERS: PCP Nurse Practitioner Family; Visit Provider Nurse Practitioner Family
DX: E11.9 Type 2 diabetes mellitus without complications (principal)
CPT/HCPCS: 36415; 80048; 80061